=== PATIENT | female | born 1970 | race Caucasian/White ===

== ENCOUNTER 2018-06-20 10:44 | Emergency (ER) | payer MEDICARE, SELFPAY ==
[2018-06-20] VITALS (32 sets, daily range): BP systolic 103–134; BP diastolic 54–80; PULSE 71–89; RESP 11–20; TEMP 36.8–37.1; O2SAT 93–99
--- NOTE | 2018-06-20 11:11 | DI.COMBO_ITS ---
SYMPTOM/DIAGNOSIS: ABD PAIN, WITH H/O GALLSTONES, EPIGASTRIC PAIN PA AND LATERAL CHEST: The heart is normal in size. The lungs are clear. The mediastinal structures and pleura appear intact. CONCLUSION: Normal chest. ABDOMEN AND PELVIC CT: CT examination of the abdomen and pelvis was performed with a bolus infusion of 100 cc's of Omnipaque 350. Images obtained through the lung bases are unremarkable. Note is made of hepatic steatosis. There are multiple gallstones. No biliary dilatation is seen. Pancreas is unremarkable. Note is made of multiple mildly enlarged lymph nodes which are in peripancreatic, portal and para-aortic and paracaval locations in the upper abdomen. No bulky adenopathy is seen. Largest nodes may measure about 2-3 cm. in greatest diameter and are difficult to differentiate from adjacent bowel. Abdominal aorta is of normal diameter and no major vascular abnormality is seen. No significant abdominal wall hernia is seen. Appendix is normal. No evidence of diverticulitis or bowel obstruction. Adrenals and kidneys appear normal, no evidence of urinary tract calcification or obstruction. CONCLUSION: 1. Cholelithiasis. 2. Hepatic steatosis. 3. Joselyn prominence in predominantly retroperitoneal locations in the upper abdomen, infectious process should be considered. Neoplastic disease not excluded but no gross mass or bulky adenopathy is seen.
--- NOTE | 2018-06-20 11:14 | W.ED.GENAD ---
Discharge Plan Disposition Patient Disposition: HOME Condition: Good Discharge Details Chief Complaint: Abd Prob Clinical Impression: Biliary colic Primary Care Provider: Mago Rocha ED Provider: Alvin Page Meds and New Rx's Prescriptions: New ondansetron HCl [Zofran] 4 mg tablet 4 mg PO TID PRN (Reason: nausea and vomiting) 5 Days Qty: 30 RF: 0 oxycodone 5 mg tablet 5 mg PO Q4H PRN (Reason: pain) Qty: 10 RF: 0 Continue levothyroxine 50 MCG tablet 50 mcg PO DAILY RF: 0 omeprazole 40 mg Capsule,Delayed Release(Dr/Ec) 40 mg PO DAILY RF: 0 metformin 1,000 mg Tablet 1,000 mg PO DAILY RF: 0 Discharge Instructions Instructions: Biliary Colic (ED) Additional Instructions: you should be contacted with an appointment for general surgery this week if you have severe worsening of pain that is constant, persistent vomit or fevers return to the emergency department Medical Decision Making <Alvin Choudhury NP - Last Filed: 06/20/18 12:13> Explained to patient we would evaluate labs and CT. Exam and HPI cosnistent with acute pancreatitis. She is not complaining of CP but with severe epigastric pain and back pain we will check troponin and CT should see aorta to evaluate for dissection. Will try to retrieve medical records from [place]. I will transfer care to Dr. Page for disposition. Lab Data Lab results reviewed: Yes I reviewed the patient's lab results. Lab results narrative: No acute abnormal values to suggest infectious gallbladder or pancreatitis. ECG Data Interpretation: No acute ST changes. Reviewed by Dr. Lyle. HPI <Alvin Choudhury NP - Last Filed: 06/20/18 12:13> General Date/Time Provider Initiated Documentation: 06/20/18 10:59. Limitations to Documentation: no limitations. Information obtained by: patient. History of Present Illness 48 year old F presents to the emergency department with the chief complaint of abdominal pain, HPI Narrative: 48 y/o female here with c/o abdominal pain. She has returned to [place] recently from [place]. She reports dealing with gall stones and abdominal pain for months. While in [place] she had U/S and endoscopies which were normal other than the gall stones. She has lost > 50lbs because of her inability to eat. She was over 300lbs and down below 250. She tried to reconnect with her previous pcp but no openings for a month. She was advised to come to ED and was told by GI specialist in [place] to have her GB out [place]. Her complaints today is worsening abdominal pain, back pain, palpitations, and N/V. Denies fever or chills. Related Data Home Medications Medication Instructions Recorded Confirmed levothyroxine 50 mcg PO DAILY 05/16/13 06/20/18 metformin 1,000 mg PO DAILY 06/20/18 06/20/18 omeprazole 40 mg PO DAILY 06/20/18 06/20/18 ondansetron HCl [Zofran] 4 mg PO TID PRN 5 Days #30 tab 06/20/18 oxycodone 5 mg PO Q4H PRN #10 tab 06/20/18 Previous Rx's Medication Instructions Recorded ondansetron HCl [Zofran] 4 mg PO TID PRN 5 Days #30 tab 06/20/18 oxycodone 5 mg PO Q4H PRN #10 tab 06/20/18 Allergies Allergy/AdvReac Type Severity Reaction Status Date / Time Penicillins Allergy Severe Anaphylaxsi Unverified 11/29/13 17:11 s morphine Allergy Intermediate Itching Unverified 11/29/13 17:12 oxycodone [Oxycodone] Allergy Itching Unverified 11/29/13 17:11 General Stated Complaint: Abd Prob TRACE: 3 Review of Systems <Alvin Choudhury NP - Last Filed: 06/20/18 12:13> Constitutional Reports weight loss ENT Reports system reviewed and no additional complaints, except as docu Cardiovascular Reports lightheadedness and Reports palpitations Respiratory Reports system reviewed and no additional complaints, except as docu Gastrointestinal Reports abdominal pain, Reports nausea and Reports vomiting Genitourinary Reports system reviewed and no additional complaints, except as docu Musculoskeletal Reports back pain Integumentary/Breasts Reports system reviewed and no additional complaints, except as docu Endocrine Reports palpitations Hematologic/Lymphatic Reports system reviewed and no additional complaints, except as docu Exam <Alvin Choudhury NP - Last Filed: 06/20/18 12:13> Const General: cooperative, in distress (pain) moderate and anxious Nutritional Appearance: obese Orientation: alert, awake and oriented x3 HENMT Head: normal to inspection and atraumatic Ears: hearing grossly normal bilaterally and external ears normal General nose exam: external nose normal and nares normal Mouth: moist mucous membranes Eyes General: appearance normal, both eyes and all related structures Neck Neck: normal visual inspection, full ROM and no lymphadenopathy Resp Effort & Inspection: normal respiratory effort and able to speak in complete sentences Auscultation: clear to auscultation bilaterally Cardio Jugular venous pressure: no JVD Rate: regular rate Rhythm: regular rhythm Heart Sounds: S1 normal and no murmurs GI Inspection: non-distended, large pannus and obesity Palpation: soft and tender in the epigastrum, in the LUQ and in the RUQ; with no rebound tenderness Auscultation: normal bowel sounds Back/Spine/Pelvis Back: CVA tenderness and back tenderness (diffuse to mid to lower back) Skin General skin exam: no rashes or lesions noted Neuro General: alert, awake and oriented x3 Cognition: normal cognition Speech: speech normal Gait: normal gait Extrem General: normal to inspection, full ROM and normal capillary refill Psych Appearance: grossly normal Speech and Movement: speech and movement normal Mood: congruent mood Affect: normal affect Attitude: cooperative Thought Process: normal Thought Content: normal Insight: insight good Judgment: judgment good Course <Alvin Choudhury NP - Last Filed: 06/20/18 12:13> Vital Signs Temperature 37.1 C 06/20/18 10:57 Pulse 87 06/20/18 10:57 Respiratory Rate 20 06/20/18 10:57 Blood Pressure 134/78 06/20/18 10:57 Pulse Oximetry 96 06/20/18 10:57 Temperature 37.1 C 06/20/18 10:57 Temperature Source Temporal Artery Scan 06/20/18 10:57 Pulse 87 06/20/18 10:57 Respiratory Rate 20 06/20/18 10:57 Respiratory Effort Non-Labored 06/20/18 11:02 Blood Pressure 134/78 06/20/18 10:57 Blood Pressure Position Sitting 06/20/18 10:57 Pulse Oximetry 96 06/20/18 10:57 Oxygen Delivery Method Room Air 06/20/18 10:57 Oxygen Flow Rate 0 06/20/18 10:57 Pain Level 10 06/20/18 10:57 Sign Out <Alvin Choudhury NP - Last Filed: 06/20/18 12:13> Sign Out Data: Sign Out Comment: Discussed with Dr. Page. He accepts for patients disposition. Pt aware. Last updated by Alvin Choudhury NP at 06/20/18 12:35 Post-Handoff Eval: pt's labs and imaging show no significant abnormality. Per Dr. Albright on the phone she has gallstones without evidence of cholecystitis. She also has enlarged lymph nodes around the pancreas which I informed her of and needs to have f/u imaging after she has her gallbladder out. She has no fenton's sign here so doubt cholecystitis and do not feel emergent surgical consult indicated. Will refer to general surgery this week for eval of her gallstones and return precautions given
--- NOTE | 2018-06-20 11:24 | ED.GENADUL_ITS ---
Discharge Plan Disposition Patient Disposition: HOME Condition: Good Discharge Details Chief Complaint: Abd Prob Clinical Impression: Biliary colic Primary Care Provider: Mago Rocha ED Provider: Alvin Page Meds and New Rx's Prescriptions: New ondansetron HCl [Zofran] 4 mg tablet 4 mg PO TID PRN (Reason: nausea and vomiting) 5 Days Qty: 30 RF: 0 oxycodone 5 mg tablet 5 mg PO Q4H PRN (Reason: pain) Qty: 10 RF: 0 Continue levothyroxine 50 MCG tablet 50 mcg PO DAILY RF: 0 omeprazole 40 mg Capsule,Delayed Release(Dr/Ec) 40 mg PO DAILY RF: 0 metformin 1,000 mg Tablet 1,000 mg PO DAILY RF: 0 Discharge Instructions Instructions: Biliary Colic (ED) Additional Instructions: you should be contacted with an appointment for general surgery this week if you have severe worsening of pain that is constant, persistent vomit or fevers return to the emergency department Medical Decision Making <Alvin Choudhury NP - Last Filed: 06/20/18 12:13> Explained to patient we would evaluate labs and CT. Exam and HPI cosnistent with acute pancreatitis. She is not complaining of CP but with severe epigastric pain and back pain we will check troponin and CT should see aorta to evaluate for dissection. Will try to retrieve medical records from [place]. I will transfer care to Dr. Page for disposition. Lab Data Lab results reviewed: Yes I reviewed the patient's lab results. Lab results narrative: No acute abnormal values to suggest infectious gallbladder or pancreatitis. ECG Data Interpretation: No acute ST changes. Reviewed by Dr. Lyle. HPI <Alvin Choudhury NP - Last Filed: 06/20/18 12:13> General Date/Time Provider Initiated Documentation: 06/20/18 10:59 . Limitations to Documentation: no limitations . Information obtained by: patient . History of Present Illness 48 year old F presents to the emergency department with the chief complaint of abdominal pain, HPI Narrative: 48 y/o female here with c/o abdominal pain. She has returned to [place]. She reports dealing with gall stones and abdominal pain for months. [place] U/S and endoscopies which were normal other than the gall stones. She has lost > 50lbs because of her inability to eat. She was over 300lbs and down below 250. She tried to reconnect with her previous pcp but no openings for a month. She was advised to come to ED and was told by GI specialist in [place] to have her GB out [place]. Her complaints today is worsening abdominal pain, back pain, palpitations, and N/V. Denies fever or chills. Related Data Home Medications Medication Instructions Recorded Confirmed levothyroxine 50 mcg PO DAILY 05/16/13 06/20/18 metformin 1,000 mg PO DAILY 06/20/18 06/20/18 omeprazole 40 mg PO DAILY 06/20/18 06/20/18 ondansetron HCl [Zofran] 4 mg PO TID PRN 5 Days #30 tab 06/20/18 oxycodone 5 mg PO Q4H PRN #10 tab 06/20/18 Previous Rx's Medication Instructions Recorded ondansetron HCl [Zofran] 4 mg PO TID PRN 5 Days #30 tab 06/20/18 oxycodone 5 mg PO Q4H PRN #10 tab 06/20/18 Allergies Allergy/AdvReac Type Severity Reaction Status Date / Time Penicillins Allergy Severe Anaphylaxsi Unverified 11/29/13 17:11 s morphine Allergy Intermediate Itching Unverified 11/29/13 17:12 oxycodone [Oxycodone] Allergy Itching Unverified 11/29/13 17:11 General Stated Complaint: Abd Prob TRACE: 3 Review of Systems <Alvin Choudhury NP - Last Filed: 06/20/18 12:13> Constitutional Reports weight loss ENT Reports system reviewed and no additional complaints, except as docu Cardiovascular Reports lightheadedness and Reports palpitations Respiratory Reports system reviewed and no additional complaints, except as docu Gastrointestinal Reports abdominal pain, Reports nausea and Reports vomiting Genitourinary Reports system reviewed and no additional complaints, except as docu Musculoskeletal Reports back pain Integumentary/Breasts Reports system reviewed and no additional complaints, except as docu Endocrine Reports palpitations Hematologic/Lymphatic Reports system reviewed and no additional complaints, except as docu Exam <Alvin Choudhury NP - Last Filed: 06/20/18 12:13> Const General: cooperative, in distress (pain) moderate and anxious Nutritional Appearance: obese Orientation: alert, awake and oriented x3 HENMT Head: normal to inspection and atraumatic Ears: hearing grossly normal bilaterally and external ears normal General nose exam: external nose normal and nares normal Mouth: moist mucous membranes Eyes General: appearance normal, both eyes and all related structures Neck Neck: normal visual inspection, full ROM and no lymphadenopathy Resp Effort & Inspection: normal respiratory effort and able to speak in complete sentences Auscultation: clear to auscultation bilaterally Cardio Jugular venous pressure: no JVD Rate: regular rate Rhythm: regular rhythm Heart Sounds: S1 normal and no murmurs GI Inspection: non-distended, large pannus and obesity Palpation: soft and tender in the epigastrum, in the LUQ and in the RUQ; with no rebound tenderness Auscultation: normal bowel sounds Back/Spine/Pelvis Back: CVA tenderness and back tenderness (diffuse to mid to lower back) Skin General skin exam: no rashes or lesions noted Neuro General: alert, awake and oriented x3 Cognition: normal cognition Speech: speech normal Gait: normal gait Extrem General: normal to inspection, full ROM and normal capillary refill Psych Appearance: grossly normal Speech and Movement: speech and movement normal Mood: congruent mood Affect: normal affect Attitude: cooperative Thought Process: normal Thought Content: normal Insight: insight good Judgment: judgment good Course <Alvin Choudhury NP - Last Filed: 06/20/18 12:13> Vital Signs Temperature 37.1 C 06/20/18 10:57 Pulse 87 06/20/18 10:57 Respiratory Rate 20 06/20/18 10:57 Blood Pressure 134/78 06/20/18 10:57 Pulse Oximetry 96 06/20/18 10:57 Temperature 37.1 C 06/20/18 10:57 Temperature Source Temporal Artery Scan 06/20/18 10:57 Pulse 87 06/20/18 10:57 Respiratory Rate 20 06/20/18 10:57 Respiratory Effort Non-Labored 06/20/18 11:02 Blood Pressure 134/78 06/20/18 10:57 Blood Pressure Position Sitting 06/20/18 10:57 Pulse Oximetry 96 06/20/18 10:57 Oxygen Delivery Method Room Air 06/20/18 10:57 Oxygen Flow Rate 0 06/20/18 10:57 Pain Level 10 06/20/18 10:57 Sign Out <Alvin Choudhury NP - Last Filed: 06/20/18 12:13> Sign Out Data: Sign Out Comment: Discussed with Dr. Page. He accepts for patients disposition. Pt aware. Last updated by Alvin Choudhury NP at 06/20/18 12:35 Post-Handoff Eval: pt's labs and imaging show no significant abnormality. Per Dr. Albright on the phone she has gallstones without evidence of cholecystitis. She also has enlarged lymph nodes around the pancreas which I informed her of and needs to have f/u imaging after she has her gallbladder out. She has no fenton's sign here so doubt cholecystitis and do not feel emergent surgical consult indicated. Will refer to general surgery this week for eval of her gallstones and return precautions given
[2018-06-20 11:36] LABS: Abs Immature Grans 0.04 k/cumm (0.0-0.09); Absolute Lymphocyte Count 2.05 k/cumm (1.2-3.4); Basophils % 0.3; Eosinophils % 1.6; HCT 34.4 % (36.0-46.0); HGB 10.9 g/dL (12.0-15.5); Immature Grans % 0.3; Lymphocytes % 17.8; Mean Corp. HGB Concentration 31.7 g/dL (32.0-36.0); Mean Corpuscular Hemoglobin 20.7 pg (27.0-33.0); Mean Corpuscular Volume 65.3 fL (80-95); Mean Platelet Volume 11.1 fL (8.0-11.0); Monocytes % 4.2; Neutrophils % 75.8; RBC 5.27 m/cumm (4.00-5.20); RBC Distribution Width 16.3 % (11.7-14.6); White Blood Cell Count 11.54 k/cumm (4.4-10.8)
[2018-06-20 11:37] LABS: Absolute Basophil Count 0.03 k/cumm (0.0-0.2); Absolute Eosinophil Count 0.18 k/cumm (0.0-0.7); Absolute Monocyte Count 0.48 k/cumm (0.11-0.7); Absolute Neutrophil Count 8.75 k/cumm (1.2-6.7)
[2018-06-20 11:46] LABS: Platelet Count 364 x1000/uL (130-400)
[2018-06-20 11:47] LABS: Diff Comment RBC Morph Reviewed; Hypochromasia 3+; Microcytosis 3+; Polychromasia Present
[2018-06-20 11:48] LABS: ALT 34 U/L (12-78); AST 35 U/L (15-37); Albumin 3.1 g/dL (3.4-5.0); Alkaline Phosphatase 82 U/L (46-116); Anion Gap 9.6 mmol/L (3-11); BUN 8 mg/dL (7-18); Bilirubin, Total 0.8 mg/dL (0.2-1.0); CO2 25.4 mmol/L (21.0-32.0); CREATININE 0.98 mg/dL (0.55-1.02); Calcium 8.8 mg/dL (8.5-10.1); Chloride 106 mmol/L (98-107); Glucose 148 mg/dL (70-100); Poikilocytes 1+; Potassium 3.7 mmol/L (3.5-5.1); Sodium 141 mmol/L (136-145)
[2018-06-20 11:49] LABS: Troponin I < 0.02 ng/mL (0.00-0.06)
[2018-06-20] MEDS: Normal Saline 1,000 ML 1000 ML IV (11:53)
[2018-06-20] MEDS: Ondansetron 4 MG/2 ML VIAL IVP (11:53)
--- NOTE | 2018-06-20 11:55 | NUR.NOTE ---
Nursing Note: Gastrologist: Dr. Zan Macias; [phone]. Had endoscopies here. Primary Care: [facility], [place] [address] [place], [place] Ultrasound done at: [phone]. Mindy Landon.
[2018-06-20 12:27] LABS: Bilirubin Negative (Negative); Blood Negative (Negative); Clarity Clear; Glucose Negative (Negative); Ketones Negative (Negative); Leukocyte Esterase Negative (Negative); Nitrite Negative (Negative); pH 6.5 (5-8)
== END 2018-06-20 14:22 | disposition home or self-care (01) ==
PROVIDERS: Nurse Practitioner Family; Emergency Provider Emergency Medicine; PCP Nurse Practitioner Family
DX: K80.50 Calculus of bile duct without cholangitis or cholecystitis without obstruction (principal)
CPT/HCPCS: 36415; 80053; 93005; 96361; 96374; 99285; 71046; 74177; 81003; 83735; 84484; 85025; 93010; J2405

== ENCOUNTER → 2018-07-06 09:49 | Outpatient (BNVA) | payer MEDICARE, MEDICAID, SELFPAY | PROVIDERS: PCP Nurse Practitioner Family; Referring Provider Nurse Practitioner Family; Visit Provider Surgery | DX: R10.10 Upper abdominal pain, unspecified (principal); E11.9 Type 2 diabetes mellitus without complications; Z79.84 Long term (current) use of oral hypoglycemic drugs | CPT/HCPCS: 99203; 99213 ==

== ENCOUNTER 2018-07-07 19:12 | Outpatient (REF) | payer MEDICARE, SELFPAY ==
[2018-07-07 22:13] LABS: ALT 37 U/L (12-78); AST 45 U/L (15-37); Albumin 3.6 g/dL (3.4-5.0); Alkaline Phosphatase 89 U/L (46-116); Anion Gap 11.6 mmol/L (3-11); BUN 10 mg/dL (7-18); Bilirubin, Total 0.7 mg/dL (0.2-1.0); CO2 23.4 mmol/L (21.0-32.0); CREATININE 0.92 mg/dL (0.55-1.02); Chloride 104 mmol/L (98-107); Glucose 96 mg/dL (70-100); Potassium 4.2 mmol/L (3.5-5.1); Sodium 139 mmol/L (136-145); TSH (W/Ref FT4) 8.04 uIU/mL (0.358-3.74); Total Protein 8.1 g/dL (6.4-8.2)
[2018-07-07 22:37] LABS: FREE T4 1.42 ng/dL (0.76-1.46)
== END 2018-07-07 19:32 ==
LOC: NCHCN 19:12
PROVIDERS: PCP Nurse Practitioner Family; Visit Provider Nurse Practitioner Family
DX: E03.9 Hypothyroidism, unspecified (principal); D56.1 Beta thalassemia; E11.9 Type 2 diabetes mellitus without complications
CPT/HCPCS: 80053; 84439; 84443

== ENCOUNTER 2018-07-08 14:48 | Outpatient (REF) | payer MEDICARE, SELFPAY ==
[2018-07-08 15:09] LABS: Abs Immature Grans 0.03 k/cumm (0.0-0.09); Absolute Basophil Count 0.07 k/cumm (0.0-0.2); Basophils % 0.6; HCT 40.2 % (36.0-46.0); HGB 11.8 g/dL (12.0-15.5); Immature Grans % 0.3; Mean Corp. HGB Concentration 29.4 g/dL (32.0-36.0); Mean Corpuscular Hemoglobin 20.1 pg (27.0-33.0); Mean Corpuscular Volume 68.6 fL (80-95); Platelet Count 376 x1000/uL (130-400); RBC 5.86 m/cumm (4.00-5.20); White Blood Cell Count 11.76 k/cumm (4.4-10.8)
[2018-07-08 16:07] LABS: Absolute Eosinophil Count 0.59 k/cumm (0.0-0.7); Absolute Lymphocyte Count 5.76 k/cumm (1.2-3.4); Absolute Monocyte Count 0.47 k/cumm (0.11-0.7); Absolute Neutrophil Count 4.94 k/cumm (1.2-6.7); Atypical Lymphocytes % 1; Nucleated RBC 1 /100WBC
[2018-07-08 16:08] LABS: Anisocytosis 1+; Microcytosis 1+; Polychromasia Present
[2018-07-08 16:10] LABS: Diff Comment Manual Differential; Poikilocytes 1+
== END 2018-07-08 15:08 ==
LOC: NCHCN 14:48
PROVIDERS: PCP Nurse Practitioner Family; Visit Provider Nurse Practitioner Family
DX: D56.1 Beta thalassemia (principal)
CPT/HCPCS: 85025

== ENCOUNTER 2018-08-04 10:08 | Outpatient (REF) | payer MEDICARE, SELFPAY ==
[2018-08-06 12:00] LABS: 6-monoacetylmorphine Not Detected ng/mL (Cutoff: 25); Amphetamines Negative ng/mL (Cutoff: 500); Barbiturates Negative ng/mL (Cutoff: 200); Benzodiazepines Negative ng/mL (Cutoff: 100); Buprenorphine Not Detected ng/mL (Cutoff: 5); Cocaine Negative ng/mL (Cutoff: 150); Codeine Not Detected ng/mL (Cutoff: 25); Comment Normal; Creatinine, U 238.4 mg/dL; Dihydrocodeine Not Detected ng/mL (Cutoff: 25); EDDP Not Detected ng/mL (Cutoff: 25); Fentanyl Not Detected ng/mL (Cutoff: 2); Hydrocodone Not Detected ng/mL (Cutoff: 25); Hydromorphone Not Detected ng/mL (Cutoff: 25); Hydromorphone-3-beta-glucuroni Not Detected ng/mL (Cutoff: 100); Meperidine Not Detected ng/mL (Cutoff: 25); Methadone Not Detected ng/mL (Cutoff: 25); Morphine Not Detected ng/mL (Cutoff: 25); N-desmethyltapentadol Not Detected ng/mL (Cutoff: 50); Naloxone Not Detected ng/mL (Cutoff: 25); Norbuprenorphine Not Detected ng/mL (Cutoff: 5); Norfentanyl Not Detected ng/mL (Cutoff: 2); Norhydrocodone Not Detected ng/mL (Cutoff: 25); Normeperidine Not Detected ng/mL (Cutoff: 25); Noroxycodone Not Detected ng/mL (Cutoff: 25); Noroxymorphone Not Detected ng/mL (Cutoff: 25); O-desmethyltramadol Not Detected ng/mL (Cutoff: 25); Phencyclidine Negative ng/mL (Cutoff: 25); Propoxyphene Not Detected ng/mL (Cutoff: 25); Specific Gravity 1.017; Tapentadol Not Detected ng/mL (Cutoff: 25); Tetrahydrocannabinol Presumptive Positive ng/mL (Cutoff: 50); Tramadol Not Detected ng/mL (Cutoff: 25); pH 6.6
[2018-09-10 12:27] LABS: Carboxy-THC Interpretation Positive.; Delta-9 CarboxyThc by LC-MS/MS >500.0 ng/mL (Cutoff:<3)
== END 2018-08-04 10:28 ==
LOC: LBN 10:08
PROVIDERS: PCP Nurse Practitioner Family; Visit Provider Nurse Practitioner Family
DX: Z79.899 Other long term (current) drug therapy (principal); R69 Illness, unspecified
CPT/HCPCS: 80307; 80349; 80364

== ENCOUNTER → 2018-08-13 12:54 | Outpatient (BNVA) | payer MEDICARE, MEDICAID, SELFPAY | PROVIDERS: PCP Nurse Practitioner Family; Referring Provider Nurse Practitioner Family; Visit Provider Surgery | DX: R10.84 Generalized abdominal pain (principal); E11.9 Type 2 diabetes mellitus without complications; Z79.84 Long term (current) use of oral hypoglycemic drugs | CPT/HCPCS: 99213 ==

== ENCOUNTER 2018-08-24 01:21 | Outpatient (CLI) | payer MEDICARE, MEDICAID, SELFPAY ==
--- NOTE | 2018-08-24 09:32 | DI.NM_ITS ---
SYMPTOMS/DIAGNOSIS: ABDOMINAL PAIN, R10.9, H/O GALLSTONES WITHOUT INFLAMMATION HEPATOBILIARY SCAN: The patient received 5.2 mCi of technetium 99m mebrofenin and hepatobiliary scan was performed. The liver, bile ducts and small bowel were visualized at the appropriate time interval. The gallbladder was visualized after gut activity and was seen on the 2-hour static image of the abdomen. IMPRESSION: Findings raising the question of chronic cholecystitis or gallbladder dysfunction.
== END 2018-08-24 01:41 ==
PROVIDERS: PCP Nurse Practitioner Family; Visit Provider Nurse Practitioner Family
DX: R10.9 Unspecified abdominal pain (principal); K81.1 Chronic cholecystitis; K82.8 Other specified diseases of gallbladder
CPT/HCPCS: 78227

== ENCOUNTER → 2018-09-03 13:12 | Outpatient (BNVA) | payer MEDICARE, MEDICAID, SELFPAY | PROVIDERS: PCP Nurse Practitioner Family; Referring Provider Nurse Practitioner Family; Visit Provider Surgery | DX: R94.8 Abnormal results of function studies of other organs and systems (principal); R10.13 Epigastric pain; K80.20 Calculus of gallbladder without cholecystitis without obstruction; K21.0 Gastro-esophageal reflux disease with esophagitis; E11.9 Type 2 diabetes mellitus without complications; E78.5 Hyperlipidemia, unspecified | CPT/HCPCS: 99213 ==

== ENCOUNTER 2018-09-08 07:57 | Day surgery (SDC) | payer MEDICARE, MEDICAID, SELFPAY ==
[2018-09-08] VITALS (11 sets, daily range): BP systolic 92–119; BP diastolic 41–77; PULSE 59–74; RESP 11–22; TEMP 35.4–36.7; O2SAT 89–98
--- NOTE | 2018-09-08 06:59 | ROE_ITS ---
Date of service: 09/08/18 Time of Service: 10:00 Operative Note DATE OF PROCEDURE: 09/08/18 PRE-OP DIAGNOSIS: Biliary Dyskinesia POST-OP DIAGNOSIS: same (and Gallstones) PROCEDURE: Laparoscopic Cholecystectomy SURGEON: Becka Deng FINANCE TEACHER: Ingrid Wood ANESTHESIA: GETA ESTIMATED BLOOD LOSS: 50 PATHOLOGY: other (Gallbladder and content) COMPLICATIONS: None Patient was transported to: PACU Patient's condition: stable Indications: Mrs. Olguin is a pleasant 48 year old with multiple medical issues who has been having RUQ pain for months. US was negative. HIDA scan was suspicious for either chronic Cholecytitis or Biliary Dyskinesia. Risks, benefits, complications were reviewed with her in the office and again in same day surgery. The patient wished to proceed and no guarantees were given or implied. Findings: Distended Gallbladder. Multiple stones. Minimal inflammation Liver is nodular, concern for cirrhosis Procedure Description: After informed consent was obtained the patient was taken to the operating room placed in a supine position, monitors were applied and a timeout was done. The patient's name, date of , allergies to medications, procedure type, antibiotic given, DVT prophylaxis and oxygen awareness were reviewed. The patient was then placed under general anesthesia and a Weber catheter was placed in a standard surgical fashion. The abdomen was then prepped and draped in a sterile surgical fashion using ChloraPrep. Next 1% lidocaine mixed with half percent bupivacaine with epinephrine was injected just above the umbilicus. A 5 mm incision was made with an 11 blade. A standard 5 mm Visiport was then placed into the abdomen under direct visualization. The abdomen was insufflated. The camera was placed and the omentum and bowel just under the port was inspected no injuries were identified. The liver was noted to be quite nodular. At this point 3 more ports were placed, a 12 mm port in the subxiphoid area and two 5 mm ports in the right upper quadrant. The gallbladder was grabbed at the top and pushed up towards the right shoulder. The neck of the gallbladder was grasped and pulled towards the right side allowing me to visualize the lymph node. The lymph node looked enlarged. The lymph node was dissected gently away using both a Maryland dissector with cautery and a hook with cautery. Fatty tissue was dissected away from the area gently using the Maryland dissector until I was able to visualize the cystic duct. The duct was dissected 360 degrees. I was able to visualize the duct going into the gallbladder and I could visualize the liver behind it. 3 clips were placed on the duct, one proximal and 2 distal and the duct was cut. The lymph node was identified. The cystic artery was then identified just medial to the duct. It have a branch coming off of it. Both the branch and the main art lizz were dissected and clips were placed one proximal and 2 distal. The artery and branch were then cut between the clips. At this point, using the hook dissector with cautery, the gallbladder was gently dissected away from the liver. I did have a small opening in the gallbladder and so the bile was suctioned out which collapsed the gallbladder around multiple stones measuring more than a centimeter. Once the gallbladder was dissected away from the liver bed it was placed into an Endo Catch bag and pulled through the 12 mm skin incision. The 12 mm port was replaced and the liver bed was inspected. 2 small bleeders were identified and these were cauterized. A Ray-Uvaldo was placed into the abdomen to help with suctioning of all the fluid. A few blood clots were noted and these were removed. The Ray- uvaldo was removed. Once the effluent was clear I inspected the clips and 2 clips were noted on the cystic artery 2 clips on the branch of the cystic artery and 2 clips on the cystic duct. 20 cc of lidocaine and bupivacaine mixture was then injected above the liver to help with postoperative shoulder pain. Next the 12 mm port was removed as were the two 5 mm ports in the right upper quadrant. No bleeding was noted from the fascia. The camera was removed and the rest of the gas was suctioned out. The umbilical port was removed. The skin incisions were closed with 4-0 Vicryl. Skin was cleaned and dried and skin affix was applied. Sponge instrument and needle counts were correct x2 at the end of the case. The Weber catheter was removed and the patient was woken up, extubated and taken back to PACU in stable condition. There were no immediate complications.
--- NOTE | 2018-09-08 07:00 | PDOC.DSDIS_ITS ---
Discharge Plan Disposition Patient Disposition: HOME Condition: Good Discharge Details Reason For Visit: DYSKENSIA Attending Provider: Becka Deng Primary Care Provider: Dani Vidal Home Meds and New Rx's Prescriptions: New acetaminophen [Tylenol 8 Hour] 650 mg tablet extended release 650 mg PO Q6H PRN PRN (Reason: fever or pain) Qty: 30 RF: 0 ibuprofen 600 mg tablet 600 mg PO QID PRN (Reason: fever or pain) Qty: 30 RF: 0 oxycodone 5 mg tablet 5 mg PO Q6H PRN (Reason: pain) Qty: 14 RF: 0 Continued levothyroxine 175 mcg tablet 175 mcg PO DAILY RF: 0 omeprazole 40 mg capsule,delayed release(DR/EC) 40 mg PO DAILY RF: 0 metformin 1,000 mg tablet 1,000 mg PO BID RF: 0 Discharge Instructions Instructions: Laparoscopic Cholecystectomy (DC) Additional Instructions: Activity at Home after surgery: 1. Make sure you walk outside at least 4 times per day 2. You should be able to climb a flight of stairs 3. No driving while in pain or taking pain medications 4. No strenuous activity or heavy lifting for 2 weeks (laparoscopic surgery) or 4 weeks (open surgery) Diet, Nutrition, & wound healin. Avoid alcohol until after you are recovered from your surgery 2. Make sure to eat plenty of lean protein (meat, fish, eggs, cottage cheese, beans) 3. Eat a variety of fruits and vegetables. Eat plenty of high fiber foods to avoid constipation. 4. Drink plenty of liquids to stay hydrated and avoid constipation Pain Medications: 1. Alternate Tylenol 1000 mg and Ibuprofen 600 mg every 3 hours 2. If a narcotic has been prescribed take as directed only for breakthrough pain For Constipation: 1. Take Milk of Magnesia or MiraLax as needed for constipation Other: 1. You may shower daily. Do not scrub the incisions 2. Do not soak the incisions for 1 week 3. You may alternate ice and heat as needed for pain and swelling Wound Care: 1. Keep the incisions clean and dry Please call our office if you develop: 1. Fevers >101.5 2. Nausea or Vomiting 3. Worsening pain 4. Redness and thick discharge from the wounds If after hours please call the Hospital at and ask to speak to the on-call surgeon Stand Alone Forms: DSU Post op Instructions, Anirudh Lubin (DSU) Referrals: Becka Deng MD [ [facility] STAFF PHYSICIAN] - (2 weeks with me or Trischa) Activity:: No lifting >20 lb x 2 weeks Diet:: low fat diet Discharge Orders Discharge Orders: Discharge Order (Routine); Ordered 09/08/18 Ordered By: Becka Deng DS: Diagnosis Discharge Diagnosis (1) Gallstones: Status: Acute (2) Biliary dyskinesia: Status: Acute (3) History of laparoscopic cholecystectomy: Status: Acute
[2018-09-08] MEDS: Lactated Ringers 1,000 ML 80 ML IV ×2 (08:57→11:47)
[2018-09-08] MEDS: CLINDAMYCIN 600 MG/50 ML BAG 100 MG IVPB (10:00)
--- NOTE | 2018-09-08 11:29 | GB_PTH ---
PATIENT: Tamy Aparicio LOC: [facility] U#:[id number] AGE/SX: 48/F ROOM: RE09/08/[address]: Becka Deng MD : [id number] BED: DIS: 09/08/2018 SPEC #: [id number] RECD: 09/08/18 12:45 STATUS: [facility] REQ #: [id number] PRATEEK: 09/08/18 11:[address]: Becka Deng DEPT: Surgical Specimen RECD BY: Aleshia Pond ENTERED: 09/08/18 12:46 SP TYPE: GB OTHR DR: Dani Vidal Tissues: 1 - GALLBLADDER Procedures: GROSS AND MICRO LEVEL 3 Comments: [id number]
[2018-09-08] MEDS: Lidocaine 1% Multi-Dose 50 ML VIAL (11:37)
[2018-09-08] MEDS: fentaNYL 100 MCG/2 ML VIAL IVP (13:09)
[2018-09-08] MEDS: Ondansetron 4 MG/2 ML VIAL IVP (14:14)
[2018-09-08] MEDS: oxyCODONE 5 MG TAB PO (14:29)
[2018-09-08] MEDS: diphenhydrAMINE 25 MG CAP PO (14:30)
== END 2018-09-08 15:31 | disposition home or self-care (01) ==
LOC: SUR 07:57
PROVIDERS: PCP Nurse Practitioner Family; Visit Provider Surgery
PROC: 0FT44ZZ Resection of Gallbladder, Percutaneous Endoscopic Approach (ICD-10-PCS; CPT 47562; principal; 2018-09-08 09:30)
DX: K82.8 Other specified diseases of gallbladder (principal); K80.10 Calculus of gallbladder with chronic cholecystitis without obstruction; K21.9 Gastro-esophageal reflux disease without esophagitis
CPT/HCPCS: 47562; 88304; J0131; J1100; J1885; J2405; J3010

== ENCOUNTER 2018-09-13 12:28 | Outpatient (REF) | payer MEDICARE, MEDICAID, SELFPAY ==
[2018-09-13 18:39] LABS: Cholesterol 187 mg/dL (50-200); HDL Cholesterol 37 mg/dL (40-60); LDL CHOLESTEROL 122 mg/dL (<100); Triglyceride 126 mg/dL (30-150)
== END 2018-09-13 12:48 ==
LOC: NCHCN 12:28
PROVIDERS: PCP Nurse Practitioner Family; Visit Provider Nurse Practitioner Family
DX: E78.5 Hyperlipidemia, unspecified (principal)
CPT/HCPCS: 80061; 83721

== ENCOUNTER → 2018-09-21 13:41 | Outpatient (BNVA) | payer MEDICARE, MEDICAID, SELFPAY | PROVIDERS: PCP Nurse Practitioner Family; Referring Provider Nurse Practitioner Family; Visit Provider Surgery | DX: Z48.89 Encounter for other specified surgical aftercare (principal); Z90.49 Acquired absence of other specified parts of digestive tract; K80.10 Calculus of gallbladder with chronic cholecystitis without obstruction; E11.9 Type 2 diabetes mellitus without complications; Z79.84 Long term (current) use of oral hypoglycemic drugs ==

== ENCOUNTER 2018-10-21 12:22 | Outpatient (REF) | payer MEDICARE, MEDICAID, SELFPAY ==
[2018-10-21 18:51] LABS: Abs Immature Grans 0.03 k/cumm (0.0-0.09); Absolute Basophil Count 0.03 k/cumm (0.0-0.2); Absolute Eosinophil Count 0.23 k/cumm (0.0-0.7); Absolute Monocyte Count 0.66 k/cumm (0.11-0.7); Basophils % 0.2; Eosinophils % 1.6; HCT 37.4 % (36.0-46.0); HGB 11.7 g/dL (12.0-15.5); Immature Grans % 0.2; Lymphocytes % 20.3; Mean Corp. HGB Concentration 31.3 g/dL (32.0-36.0); Mean Corpuscular Hemoglobin 19.8 pg (27.0-33.0); Mean Corpuscular Volume 63.3 fL (80-95); Mean Platelet Volume 11.6 fL (8.0-11.0); Monocytes % 4.6; Neutrophils % 73.1; Platelet Count 434 x1000/uL (130-400); RBC 5.91 m/cumm (4.00-5.20); RBC Distribution Width 17.4 % (11.7-14.6); White Blood Cell Count 14.31 k/cumm (4.4-10.8)
[2018-10-21 19:13] LABS: ALT 35 U/L (12-78); AST 36 U/L (15-37); Albumin 3.8 g/dL (3.4-5.0); Alkaline Phosphatase 113 U/L (46-116); Anion Gap 9.9 mmol/L (3-11); BUN 7 mg/dL (7-18); Bilirubin, Total 0.8 mg/dL (0.2-1.0); CO2 26.1 mmol/L (21.0-32.0); CREATININE 0.83 mg/dL (0.55-1.02); Calcium 9.7 mg/dL (8.5-10.1); Chloride 101 mmol/L (98-107); Glucose 89 mg/dL (70-100); Lipase 230 U/L (73-393); Potassium 4.3 mmol/L (3.5-5.1); Sodium 137 mmol/L (136-145); Total Protein 8.2 g/dL (6.4-8.2)
[2018-10-21 19:27] LABS: Absolute Neutrophil Count 10.46 k/cumm (1.2-6.7)
[2018-10-21 19:40] LABS: Hemoglobin A1C 6.8 % (4.5-6.2)
[2018-10-21 21:07] LABS: Diff Comment Diff Reviewed
[2018-10-21 21:08] LABS: Anisocytosis 2+; Microcytosis 3+
[2018-10-25 12:45] LABS: Hepatitis A Antibody IgM Negative (NEGAT); Hepatitis B Core Antibody Negative (NEGAT); Hepatitis B surface Ag Negative (NEGAT); Hepatitis C Ab w Rflx HCV PCR Negative (NEGAT)
== END 2018-10-21 12:42 ==
LOC: NCHCN 12:22
PROVIDERS: PCP Nurse Practitioner Family; Visit Provider Family Medicine
DX: R19.7 Diarrhea, unspecified (principal); K76.9 Liver disease, unspecified
CPT/HCPCS: 80053; 83690; 86704; 86709; 86803; 87340; 83036; 84443; 85025

== ENCOUNTER 2018-10-22 12:37 | Outpatient (REF) | payer MEDICARE, MEDICAID, SELFPAY ==
[2018-10-23 11:38] LABS: Campylobacter PCR SEE COMMENTS; Salmonella PCR SEE COMMENTS; Shiga Toxin PCR SEE COMMENTS; Shigella/Enteroinvasive Ecoli SEE COMMENTS
== END 2018-10-22 12:57 ==
LOC: NCHCN 12:37
PROVIDERS: PCP Nurse Practitioner Family; Visit Provider Family Medicine
DX: R19.7 Diarrhea, unspecified (principal); K76.9 Liver disease, unspecified; E11.9 Type 2 diabetes mellitus without complications; E03.9 Hypothyroidism, unspecified
CPT/HCPCS: 87329; 87505; 83630; 87324

== ENCOUNTER 2019-01-25 13:03 | Outpatient (REF) | payer MEDICARE, MEDICAID, SELFPAY ==
--- NOTE | 2019-01-25 12:00 | PAPFT_PTH ---
PATIENT: Tamy Aparicio LOC: [facility] U#:[id number] AGE/SX: 48/F ROOM: RE01/25/[address]: Dani Vidal : 1970 BED: DIS: 01/25/2019 SPEC #: [id number] RECD: 01/25/19 17:55 STATUS: ANDERSON REQ #: [id number] PRATEEK: 01/25/19 12:[address]: Dani Vidal DEPT: [facility] Cytology RECD BY: Aleshia Pond Tissues: 1 - CX/ENDOCX FOR PAP SMEARS Procedures: PAP THIN PREP/UVM Screening HPV DNA PROBE Comments: [id number]
[2019-01-25 18:05] LABS: HCT 37.5 % (36.0-46.0); Mean Corpuscular Hemoglobin 20.2 pg (27.0-33.0); Mean Platelet Volume 11.4 fL (8.0-11.0); Platelet Count 395 x1000/uL (130-400); RBC 5.95 m/cumm (4.00-5.20); RBC Distribution Width 17.7 % (11.7-14.6); White Blood Cell Count 12.02 k/cumm (4.4-10.8)
[2019-01-25 18:22] LABS: ALT 28 U/L (12-78); AST 27 U/L (15-37); Albumin 3.8 g/dL (3.4-5.0); Alkaline Phosphatase 111 U/L (46-116); Anion Gap 12.3 mmol/L (3-11); BUN 11 mg/dL (7-18); Bilirubin, Total 0.7 mg/dL (0.2-1.0); CO2 25.7 mmol/L (21.0-32.0); CREATININE 0.85 mg/dL (0.55-1.02); Calcium 9.6 mg/dL (8.5-10.1); Chloride 102 mmol/L (98-107); Glucose 88 mg/dL (70-100); Potassium 4.1 mmol/L (3.5-5.1); Sodium 140 mmol/L (136-145); TSH (W/Ref FT4) 0.97 uIU/mL (0.358-3.74); Total Protein 8.1 g/dL (6.4-8.2)
== END 2019-01-25 13:23 ==
LOC: NCHCN 13:03
PROVIDERS: PCP Nurse Practitioner Family; Visit Provider Nurse Practitioner Family
DX: E03.9 Hypothyroidism, unspecified (principal); R19.7 Diarrhea, unspecified; D56.3 Thalassemia minor; M79.7 Fibromyalgia; Z12.4 Encounter for screening for malignant neoplasm of cervix; Z11.51 Encounter for screening for human papillomavirus (HPV)
CPT/HCPCS: 80053; 85027; 88142; 84443; 87624

== ENCOUNTER 2019-02-08 11:28 | Outpatient (CLI) | payer MEDICARE, MEDICAID, SELFPAY ==
--- NOTE | 2019-02-08 11:54 | DI.MAMMO_ITS ---
SYMPTOMS/DIAGNOSIS: SCREENING, Z12.39, [facility], Z00.00 MAMMOGRAM: Mammograms were interpreted according to the usual protocol including computer analysis with CAD system, tomosynthesis and C view imaging. The breasts are of moderate density with fairly symmetrical distribution of fibroglandular tissue. No dominant mass is identified in either breast. Current examination is compared with the previous examinations including July 2013 and there has been no gross interval change in appearance in comparison with the previous studies. CONCLUSION: No specific evidence of malignancy at this time. Routine screening examinations are suggested at yearly intervals in this age group according to the ACS/ACR guidelines. Category 1, breast density category B. MQSA ASSESSMENT OF FINDINGS: Negative. Category 1. Patient will receive a letter notifying them of these results. BI-RADS category B. There are scattered areas of fibroglandular density.
== END 2019-02-08 11:48 ==
PROVIDERS: PCP Nurse Practitioner Family; Visit Provider Nurse Practitioner Family
DX: Z12.31 Encounter for screening mammogram for malignant neoplasm of breast (principal)
CPT/HCPCS: 77063; 77067

== ENCOUNTER 2019-05-06 11:57 | Outpatient (CLI) | payer MEDICARE, MEDICAID, SELFPAY ==
--- NOTE | 2019-05-06 11:35 | DI.RAD_ITS ---
EXAM: XR KNEE LT 3V AP,LAT,PACO INDICATION: LT KNEE PAIN, M25.562. COMPARISON: No exams were available for comparison TECHNIQUE: 2D digital imaging was performed. FINDINGS: Three views were obtained. There is mild narrowing of the medial tibiofemoral cartilaginous joint sp karely. No bony abnormality seen. IMPRESSION: cartilaginous joint space narrowing presumably on a degenerative basis.
== END 2019-05-06 12:17 ==
PROVIDERS: PCP Nurse Practitioner Family; Visit Provider Nurse Practitioner Family
DX: M25.562 Pain in left knee (principal); M17.12 Unilateral primary osteoarthritis, left knee
CPT/HCPCS: 73562

== ENCOUNTER → 2019-05-17 13:50 | Outpatient (BNVA) | payer MEDICARE, MEDICAID, SELFPAY | PROVIDERS: PCP Nurse Practitioner Family; Referring Provider Nurse Practitioner Family; Visit Provider Student in an Organized Health Care Education/Training Program | DX: M22.42 Chondromalacia patellae, left knee (principal); M23.92 Unspecified internal derangement of left knee; E11.9 Type 2 diabetes mellitus without complications | CPT/HCPCS: 99204; 99215 ==

== ENCOUNTER 2019-05-24 13:38 | Outpatient (REF) | payer MEDICARE, MEDICAID, SELFPAY ==
[2019-05-24 19:55] LABS: ALT 23 U/L (14-59); AST 19 U/L (15-37); Albumin 3.8 g/dL (3.4-5.0); Alkaline Phosphatase 103 U/L (46-116); BUN 14 mg/dL (7-18); Bilirubin, Total 0.5 mg/dL (0.2-1.0); CREATININE 0.88 mg/dL (0.55-1.02); Calcium 9.1 mg/dL (8.5-10.1); Chloride 104 mmol/L (98-107); Glucose 107 mg/dL (70-100); Potassium 4.1 mmol/L (3.5-5.1); Sodium 141 mmol/L (136-145); Total Protein 7.8 g/dL (6.4-8.2)
[2019-05-24 20:17] LABS: Abs Immature Grans 0.02 k/cumm (0.0-0.09); Absolute Basophil Count 0.07 k/cumm (0.0-0.2); Absolute Eosinophil Count 0.24 k/cumm (0.0-0.7); Absolute Monocyte Count 0.54 k/cumm (0.11-0.7); Basophils % 0.7; Eosinophils % 2.5; HCT 36.4 % (36.0-46.0); HGB 11.4 g/dL (12.0-15.5); Immature Grans % 0.2; Lymphocytes % 28.7; Mean Corp. HGB Concentration 31.3 g/dL (32.0-36.0); Mean Corpuscular Hemoglobin 19.9 pg (27.0-33.0); Mean Corpuscular Volume 63.4 fL (80-95); Mean Platelet Volume 11.9 fL (8.0-11.0); Monocytes % 5.5; Neutrophils % 62.4; Platelet Count 389 x1000/uL (130-400); RBC 5.74 m/cumm (4.00-5.20); RBC Distribution Width 16.5 % (11.7-14.6); White Blood Cell Count 9.77 k/cumm (4.4-10.8)
[2019-05-24 20:20] LABS: PROTEIN 15.9 mg/dL
[2019-05-24 20:23] LABS: COMMENT (LAB VIEW ONLY) 128.29 mg/dL; Prot/Crea Ur Ratio 0.12
[2019-05-24 20:24] LABS: COMMENT (LAB VIEW ONLY) 127.32 mg/dL; Microalb ug/mg Crea 6.6 ug/mg Cr
[2019-05-24 20:27] LABS: Bilirubin Negative (Negative); Blood Negative (Negative); Clarity Clear (Clear); Glucose Negative (Negative); Ketones Negative (Negative); Leukocyte Esterase Trace (Negative); Nitrite Negative (Negative); Specific Gravity 1.015 (1.005-1.025); Urobilinogen 0.2 EU/dL (Up TO 0.2)
[2019-05-24 21:00] LABS: Diff Comment RBC Morph Reviewed; Microcytosis 3+
[2019-05-24 21:40] LABS: Bacteria Many HPF (Negative); C & S Indicated? No/Sq. Contamination; Casts Negative LPF (Negative); Crystals Negative HPF (Negative); Epithelial Cells Many HPF (Negative); Mucus Negative (Negative); Other Cells Negative (Negative); RBC Negative (0-2)
[2019-05-26 11:26] LABS: HBs Antibody, Quant <3.1 mIU/mL; Hepatitis B Surface Ab Negative
[2019-05-26 11:34] LABS: Hepatitis B Surface Ag Negative (NEGAT)
[2019-05-26 12:36] LABS: Hep A Total Ab w Rflx IgM Negative (NEGAT)
[2019-05-26 12:46] LABS: Hepatitis C Ab w Rflx HCV PCR Negative (NEGAT)
== END 2019-05-24 13:58 ==
LOC: NCHCN 13:38
PROVIDERS: PCP Nurse Practitioner Family; Visit Provider Nurse Practitioner Family
DX: K75.81 Nonalcoholic steatohepatitis (NASH) (principal); D56.3 Thalassemia minor; R19.7 Diarrhea, unspecified; Z11.59 Encounter for screening for other viral diseases
CPT/HCPCS: 80053; 86706; 86709; 86803; 87340; 81003; 81015; 82043; 82565; 82570; 84156; 85025

== ENCOUNTER 2019-07-25 12:12 | Outpatient (REF) | payer MEDICARE, MEDICAID, SELFPAY ==
[2019-07-25 13:13] LABS: TSH 0.06 uIU/mL (0.36-3.74)
== END 2019-07-25 12:32 ==
LOC: NCHCO 12:12
PROVIDERS: PCP Nurse Practitioner Family; Visit Provider Nurse Practitioner Family
DX: E03.9 Hypothyroidism, unspecified (principal)
CPT/HCPCS: 84443

== ENCOUNTER 2020-01-25 19:07 | Outpatient (REF) | payer MEDICARE, MEDICAID, SELFPAY ==
[2020-01-25 21:42] LABS: HCT 35.5 % (36.0-46.0); HGB 11.3 g/dL (12.0-15.5); Mean Corp. HGB Concentration 31.8 g/dL (32.0-36.0); Mean Corpuscular Hemoglobin 20.7 pg (27.0-33.0); Mean Corpuscular Volume 65.1 fL (80-95); Mean Platelet Volume 12.1 fL (8.0-11.0); Platelet Count 353 x1000/uL (130-400); RBC 5.45 m/cumm (4.00-5.20); White Blood Cell Count 12.32 k/cumm (4.4-10.8)
[2020-01-25 21:58] LABS: ALT 24 U/L (14-59); AST 23 U/L (15-37); Albumin 3.8 g/dL (3.4-5.0); Alkaline Phosphatase 89 U/L (46-116); Anion Gap 9.1 mmol/L (3-11); BUN 11 mg/dL (7-18); Bilirubin, Total 0.6 mg/dL (0.2-1.0); CO2 27.9 mmol/L (21.0-32.0); Calcium 8.8 mg/dL (8.5-10.1); Chloride 103 mmol/L (98-107); Estimated GFR 58.93 (mL/min/1.73m2); Glucose 82 mg/dL (74-106); Potassium 4.3 mmol/L (3.5-5.1); Sodium 140 mmol/L (136-145); TSH 19.12 uIU/mL (0.36-3.74); Total Protein 7.2 g/dL (6.4-8.2)
[2020-01-25 22:23] LABS: ESR 35 mm/hr (0-20)
== END 2020-01-25 19:27 ==
LOC: NCHCN 19:07
PROVIDERS: PCP Nurse Practitioner Family; Visit Provider Family Medicine
DX: E03.9 Hypothyroidism, unspecified (principal); M25.462 Effusion, left knee; K75.81 Nonalcoholic steatohepatitis (NASH); D56.3 Thalassemia minor
CPT/HCPCS: 80053; 85027; 85652; 84443

== ENCOUNTER 2020-02-15 00:33 | Outpatient (CLI) | payer MEDICARE, MEDICAID, SELFPAY ==
--- NOTE | 2020-02-15 | DI.US_ITS ---
EXAM: US ABDOMEN CLINICAL HISTORY: SPLENOMEGALY,R16.1,NONALCOHOLIC STEATOHEPATITIS TECHNIQUE: Ultrasound performed using standard protocol. COMPARISON: US THYROID ULTRASOUND from 02/21/2014 FINDINGS: The liver shows increased echogenicity consistent with hepatic steatosis. There is mild hepatomegaly . No focal hepatic lesion seen. Spleen is unremarkable in appearance. Gallbladder is been surgically removed. No biliary dilatation. Norm 0 day rec arriaga ule flow noted i n portal vein. The kidneys are normal in size and shape, no hydronephrosis or nephrolithiasis. Abdominal aorta and IVC are of normal diameter. IMPRESSION: Probable hepatic steatosis. No other significant abnormality identified in a patient who is status p ost cholecystectomy. DATA REPOSITORY:
== END 2020-02-15 00:53 ==
PROVIDERS: PCP Nurse Practitioner Family; Visit Provider Nurse Practitioner Family
DX: K76.0 Fatty (change of) liver, not elsewhere classified (principal); R16.0 Hepatomegaly, not elsewhere classified; Z90.49 Acquired absence of other specified parts of digestive tract
CPT/HCPCS: 76700

== ENCOUNTER 2020-07-04 14:57 | Outpatient (REF) | payer MEDICARE, MEDICAID, SELFPAY ==
[2020-07-04 20:10] LABS: TSH (W/Ref FT4) 0.58 uIU/mL (0.36-3.74)
== END 2020-07-04 15:17 ==
LOC: NCHCN 14:57
PROVIDERS: PCP Nurse Practitioner Family; Visit Provider Nurse Practitioner Family
DX: E03.9 Hypothyroidism, unspecified (principal)
CPT/HCPCS: 84443

== ENCOUNTER 2020-11-08 21:04 | Outpatient (REF) | payer MEDICARE, MEDICAID, SELFPAY ==
[2020-11-08 21:52] LABS: TSH (W/Ref FT4) 20.33 uIU/mL (0.36-3.74)
[2020-11-08 22:21] LABS: FREE T4 1.08 ng/dL (0.76-1.46)
== END 2020-11-08 21:05 | disposition home or self-care (01) ==
LOC: NCHCN 21:04
PROVIDERS: PCP Nurse Practitioner Family; Visit Provider Nurse Practitioner Family
DX: E03.9 Hypothyroidism, unspecified (principal)
CPT/HCPCS: 84439; 84443

== ENCOUNTER 2021-02-08 16:11 | Outpatient (REF) | payer MEDICARE, MEDICAID, SELFPAY ==
[2021-02-08 19:39] LABS: HCT 40.6 % (36.0-46.0); HGB 12.4 g/dL (11.2-15.7); MCH 20.3 pg (27.0-33.0); MCHC 30.5 % (32.0-36.0); MCV 66.3 fL (80-95); MPV 11.1 fL (8.0-11.0); Platelet Count 324 10^3/uL (130-400); RBC 6.12 10^6/uL (3.93-5.22); RDW 17.1 % (11.7-14.6); RDW-SD 35.5 fL; WBC 11.71 10^3/uL (4.4-10.8)
[2021-02-08 19:52] LABS: ESR 113 mm/hr (0-20)
[2021-02-08 20:19] LABS: Hemoglobin A1C 8.3 % (<5.7)
[2021-02-08 20:41] LABS: ALT 48 U/L (14-59); AST 50 U/L (15-37); Albumin 3.7 g/dL (3.4-5.0); Alkaline Phosphatase 108 U/L (46-116); Anion Gap 15.6 mmol/L (3-11); BUN 13 mg/dL (7-18); Bilirubin, Total 0.4 mg/dL (0.2-1.0); CO2 22.4 mmol/L (21.0-32.0); Calcium 9.3 mg/dL (8.5-10.1); Chloride 101 mmol/L (98-107); Estimated GFR 58.69 (mL/min/1.73m2); Glucose 170 mg/dL (74-106); Potassium 4.4 mmol/L (3.5-5.1); Sodium 139 mmol/L (136-145); TSH (W/Ref FT4) 21.37 uIU/mL (0.36-3.74); Total Protein 7.9 g/dL (6.4-8.2)
[2021-02-08 20:58] LABS: FREE T4 0.97 ng/dL (0.76-1.46)
[2021-02-09 22:56] LABS: T3,Free 2.3 pg/mL (2.8-5.3)
[2021-02-09 23:10] LABS: T3, Total 109 ng/dL (97-169)
[2021-02-15 12:07] LABS: T3 (Triiodothyronine) Reverse 35 ng/dL (10-24)
== END 2021-02-08 16:12 | disposition home or self-care (01) ==
LOC: NCHCN 16:11
PROVIDERS: PCP Nurse Practitioner Family; Visit Provider Nurse Practitioner Family
DX: E11.9 Type 2 diabetes mellitus without complications (principal); E03.9 Hypothyroidism, unspecified; M79.7 Fibromyalgia; R20.2 Paresthesia of skin
CPT/HCPCS: 80053; 85027; 85652; 83036; 84439; 84443; 84480; 84481; 84482

== ENCOUNTER 2021-03-01 04:31 | Outpatient (CLI) | payer MEDICARE, MEDICAID, SELFPAY ==
--- NOTE | 2021-03-01 | DI.MRI_ITS ---
Exam(s) MR BRAIN WO EXAM: MR BRAIN WO CLINICAL HISTORY: PARESTHESIAS,R20.2,BALANCE PROBLEM,R27.9 TECHNIQUE: Multiplanar multisequence MRI of the brain was performed. COMPARISON: No exams were available for comparison FINDINGS: VENTRICLES AND EXTRA AXIAL SPACES: Normal in size and morphology for the patient's age. MIDLINE SHIFT: None. CEREBRAL PARENCHYMA: No focus of restricted diffusion to suggest acute infarct. No space-occupying le nico identified. HEMORRHAGE: None. BRAINSTEM/CEREBELLUM: Normal. CALVARIUM: Normal. VISUALIZED PARANASAL SINUSES/MASTOIDS:Clear. [place] SUR OF [place]: Normal flow void. PITUITARY GLAND: Unremarkable. OTHER FINDINGS: None. IMPRESSION: Unremarkable MRI of the brain. DATA REPOSITORY:
== END 2021-03-01 04:51 ==
PROVIDERS: PCP Nurse Practitioner Family; Visit Provider Nurse Practitioner Family
DX: R20.2 Paresthesia of skin (principal); R27.9 Unspecified lack of coordination
CPT/HCPCS: 70551

== ENCOUNTER → 2021-03-06 08:11 | Outpatient (BNVA) | payer MEDICARE, MEDICAID, SELFPAY | PROVIDERS: PCP Nurse Practitioner Family; Referring Provider Nurse Practitioner Family; Visit Provider Psychiatry & Neurology Neurology | DX: R20.2 Paresthesia of skin (principal); M79.7 Fibromyalgia; G47.00 Insomnia, unspecified | CPT/HCPCS: 99215; G2212 ==

== ENCOUNTER 2021-08-30 15:45 | Outpatient (REF) | payer MEDICARE, MEDICAID, SELFPAY ==
[2021-08-30 20:53] LABS: Abs Immature Grans 0.04 10^3/uL (0.0-0.06); Absolute Eosinophil Count 0.21 10^3/uL (0.0-0.7); Absolute Lymphocyte Count 2.59 10^3/uL (1.2-3.4); Basophils % 0.8; Eosinophils % 1.8; HCT 41.8 % (36.0-46.0); HGB 12.5 g/dL (11.2-15.7); Immature Grans % 0.3; Lymphocytes % 21.7; MCHC 29.9 % (32.0-36.0); MCV 66.9 fL (80-95); MPV 11.7 fL (8.0-11.0); Neutrophils % 70.4; Nucleated RBC 0 %; Platelet Count 283 10^3/uL (130-400); RBC 6.25 10^6/uL (3.93-5.22); RDW 15.9 % (11.7-14.6); RDW-SD 34.6 fL; WBC 11.93 10^3/uL (4.4-10.8)
[2021-08-30 21:23] LABS: ALT 70 U/L (14-59); AST 74 U/L (15-37); Albumin 3.8 g/dL (3.4-5.0); Alkaline Phosphatase 152 U/L (46-116); Anion Gap 12.3 mmol/L (3-11); BUN 10 mg/dL (7-18); Bilirubin, Total 0.9 mg/dL (0.2-1.0); CO2 23.7 mmol/L (21.0-32.0); Calcium 9.5 mg/dL (8.5-10.1); Chloride 93 mmol/L (98-107); Estimated GFR 58.45 (mL/min/1.73m2); Potassium 4.5 mmol/L (3.5-5.1); Sodium 129 mmol/L (136-145); TSH (W/Ref FT4) 15.95 uIU/mL (0.36-3.74); Total Protein 8.3 g/dL (6.4-8.2)
[2021-08-30 21:35] LABS: Hemoglobin A1C 13.9 % (<5.7)
[2021-08-30 21:58] LABS: Glucose 524 mg/dL (74-106)
[2021-08-30 22:24] LABS: FREE T4 1.31 ng/dL (0.76-1.46)
== END 2021-08-30 15:46 | disposition home or self-care (01) ==
LOC: LBN 15:45
PROVIDERS: PCP Nurse Practitioner Family; Visit Provider Physician Assistant Medical
DX: E11.9 Type 2 diabetes mellitus without complications (principal); R10.9 Unspecified abdominal pain; E03.9 Hypothyroidism, unspecified
CPT/HCPCS: 80053; 83036; 84439; 84443; 85025; 87086

== ENCOUNTER 2021-09-02 00:41 | Outpatient (CLI) | payer MEDICARE, MEDICAID, SELFPAY ==
--- NOTE | 2021-09-02 | DI.US_ITS ---
Exam(s) US RENAL EXAM: US RENAL CLINICAL HISTORY: LT FLANK PAIN, R10.9, INTERMITTENT EPISODES PAIN SINCE DEC. TECHNIQUE: Gan scale, color and spectral Doppler were used. FINDINGS: Renal size in cm: Right: 12.5 left: 12.3 Echogenicity: Normal Hydronephrosis: No Cyst or mass: 11 millimeter cyst mid left kidney. Nephrolithiasis: No Bladder:Normal both ureteral jets were visualized. Prevoid vol:128 cc Postvoid vol:Empty IMPRESSION: Evidence of hydronephrosis or renal calculi. DATA REPOSITORY:
== END 2021-09-02 01:01 ==
PROVIDERS: PCP Nurse Practitioner Family; Visit Provider Physician Assistant Medical
DX: R10.32 Left lower quadrant pain (principal); N28.1 Cyst of kidney, acquired
CPT/HCPCS: 76770

== ENCOUNTER 2021-11-19 20:43 | Outpatient (REF) | payer MEDICARE, MEDICAID, SELFPAY ==
[2021-11-19 23:11] LABS: Abs Immature Grans 0.03 10^3/uL (0.0-0.06); Absolute Eosinophil Count 0.18 10^3/uL (0.0-0.7); Basophils % 0.8; Eosinophils % 1.4; HCT 40.6 % (36.0-46.0); HGB 12.1 g/dL (11.2-15.7); Immature Grans % 0.2; Lymphocytes % 20.4; MCH 19.9 pg (27.0-33.0); MCHC 29.8 % (32.0-36.0); MCV 66.9 fL (80-95); MPV 11.4 fL (8.0-11.0); Monocytes % 6.3; Neutrophils % 70.9; Platelet Count 440 10^3/uL (130-400); RBC 6.07 10^6/uL (3.93-5.22); RDW 16.8 % (11.7-14.6); RDW-SD 36.2 fL; WBC 12.67 10^3/uL (4.4-10.8)
[2021-11-19 23:16] LABS: Absolute Lymphocyte Count 2.58 10^3/uL (1.2-3.4); Absolute Neutrophil Count 8.98 10^3/uL (1.2-6.7)
[2021-11-20 00:05] LABS: ALT 41 U/L (14-59); AST 50 U/L (15-37); Albumin 3.7 g/dL (3.4-5.0); Alkaline Phosphatase 97 U/L (46-116); BUN 11 mg/dL (7-18); Bilirubin, Total 0.6 mg/dL (0.2-1.0); Calcium 9.3 mg/dL (8.5-10.1); Chloride 102 mmol/L (98-107); Estimated GFR 58.45 (mL/min/1.73m2); Glucose 134 mg/dL (74-106); Sodium 138 mmol/L (136-145); TSH (W/Ref FT4) 0.01 uIU/mL (0.36-3.74); Total Protein 7.9 g/dL (6.4-8.2)
[2021-11-20 00:36] LABS: FREE T4 2.36 ng/dL (0.76-1.46)
[2021-11-20 17:25] LABS: T3,Free 4.1 pg/mL (2.8-5.3)
== END 2021-11-19 20:44 | disposition home or self-care (01) ==
LOC: NCHCN 20:43
PROVIDERS: PCP Nurse Practitioner Family; Visit Provider Nurse Practitioner Family
DX: E03.9 Hypothyroidism, unspecified (principal); E11.9 Type 2 diabetes mellitus without complications
CPT/HCPCS: 80053; 84439; 84443; 84481; 85025

== ENCOUNTER 2021-12-23 09:37 | Outpatient (REF) | payer MEDICARE, MEDICAID, SELFPAY ==
[2021-12-23 16:34] LABS: HCT 39.9 % (36.0-46.0); HGB 11.8 g/dL (11.2-15.7); MCH 19.9 pg (27.0-33.0); MCHC 29.6 % (32.0-36.0); MCV 67 fL (80-95); MPV 11.3 fL (8.0-11.0); Platelet Count 416 10^3/uL (130-400); RBC 5.93 10^6/uL (3.93-5.22); RDW 15.7 % (11.7-14.6); RDW-SD 36.8 fL
[2021-12-23 17:07] LABS: FREE T4 2.15 ng/dL (0.76-1.46); TSH 0.01 uIU/mL (0.36-3.74)
[2021-12-24 17:53] LABS: T3,Free 3.2 pg/mL (2.8-5.3)
== END 2021-12-23 09:38 | disposition home or self-care (01) ==
LOC: NCHCN 09:37
PROVIDERS: PCP Nurse Practitioner Family; Visit Provider Nurse Practitioner Family
DX: E03.9 Hypothyroidism, unspecified (principal); D56.3 Thalassemia minor; F43.0 Acute stress reaction; F43.10 Post-traumatic stress disorder, unspecified
CPT/HCPCS: 85027; 84439; 84443; 84481

== ENCOUNTER 2021-12-26 09:04 | Outpatient (REF) | payer MEDICARE, MEDICAID, SELFPAY | END 2021-12-26 09:05 | disposition home or self-care (01) | LOC: NCHCN 09:04 | PROVIDERS: PCP Nurse Practitioner Family; Visit Provider Nurse Practitioner Family | DX: D56.3 Thalassemia minor (principal); E03.9 Hypothyroidism, unspecified; E11.9 Type 2 diabetes mellitus without complications; M79.7 Fibromyalgia; F43.10 Post-traumatic stress disorder, unspecified; F43.0 Acute stress reaction | CPT/HCPCS: 82533 ==

== ENCOUNTER 2022-02-26 09:07 | Outpatient (REF) | payer MEDICARE, MEDICAID, SELFPAY ==
[2022-02-26 16:22] LABS: Abs Immature Grans 0.04 10^3/uL (0.0-0.06); Absolute Basophil Count 0.07 10^3/uL (0.0-0.2); Absolute Eosinophil Count 0.24 10^3/uL (0.0-0.7); Absolute Lymphocyte Count 2.16 10^3/uL (1.2-3.4); Absolute Monocyte Count 0.51 10^3/uL (0.1-0.8); Absolute Neutrophil Count 7.46 10^3/uL (1.2-6.7); Basophils % 0.7; Eosinophils % 2.3; HCT 37.7 % (36.0-46.0); HGB 11.6 g/dL (11.2-15.7); Immature Grans % 0.4; Lymphocytes % 20.6; MCHC 30.8 % (32.0-36.0); MCV 65 fL (80-95); MPV 11.8 fL (8.0-11.0); Monocytes % 4.9; Neutrophils % 71.1; Platelet Count 343 10^3/uL (130-400); RDW 15.9 % (11.7-14.6); RDW-SD 35.5 fL; WBC 10.48 10^3/uL (4.4-10.8)
[2022-02-26 17:02] LABS: ALT 42 U/L (14-59); AST 39 U/L (15-37); Albumin 3.5 g/dL (3.4-5.0); Alkaline Phosphatase 90 U/L (46-116); Anion Gap 8.8 mmol/L (3-11); BUN 14 mg/dL (7-18); Bilirubin, Total 0.6 mg/dL (0.2-1.0); CO2 24.2 mmol/L (21.0-32.0); CREATININE 0.9 mg/dL (0.55-1.02); Calcium 8.9 mg/dL (8.5-10.1); Chloride 104 mmol/L (98-107); Glucose 122 mg/dL (74-106); Potassium 4.1 mmol/L (3.5-5.1); Sodium 137 mmol/L (136-145)
[2022-02-26 17:34] LABS: Hemoglobin A1C 7.1 % (<5.7)
[2022-02-26 18:16] LABS: Diff Comment RBC Morph Reviewed; Hypochromasia 2+; Microcytosis 2+; Polychromasia Present
== END 2022-02-26 09:08 | disposition home or self-care (01) ==
LOC: NCHCN 09:07
PROVIDERS: PCP Nurse Practitioner Family; Visit Provider Nurse Practitioner Family
DX: E11.9 Type 2 diabetes mellitus without complications (principal); E03.9 Hypothyroidism, unspecified; F41.1 Generalized anxiety disorder; K75.81 Nonalcoholic steatohepatitis (NASH); K56.3 Gallstone ileus; M79.7 Fibromyalgia
CPT/HCPCS: 80053; 83036; 84439; 84443; 85025

== ENCOUNTER 2022-05-05 09:35 | Outpatient (REF) | payer MEDICARE, MEDICAID, SELFPAY ==
[2022-05-05 16:29] LABS: TSH (W/Ref FT4) 1.38 uIU/mL (0.36-3.74)
== END 2022-05-05 09:36 | disposition home or self-care (01) ==
LOC: NCHCN 09:35
PROVIDERS: Visit Provider Nurse Practitioner Family
DX: E03.9 Hypothyroidism, unspecified (principal)
CPT/HCPCS: 84443

== ENCOUNTER 2022-12-31 16:21 | Outpatient (REF) | payer MEDICARE, MEDICAID, SELFPAY ==
[2022-12-31 17:37] LABS: Abs Immature Grans 0.05 10^3/uL (0.0-0.06); Absolute Basophil Count 0.09 10^3/uL (0.0-0.2); Absolute Eosinophil Count 0.24 10^3/uL (0.0-0.7); Absolute Lymphocyte Count 2.59 10^3/uL (1.2-3.4); Absolute Monocyte Count 0.68 10^3/uL (0.1-0.8); Absolute Neutrophil Count 9.17 10^3/uL (1.2-6.7); Basophils % 0.7; Eosinophils % 1.9; HCT 41.7 % (36.0-46.0); HGB 12.7 g/dL (11.2-15.7); Immature Grans % 0.4; Lymphocytes % 20.2; MCHC 30.5 % (32.0-36.0); MCV 66 fL (80-95); MPV 11.4 fL (8.0-11.0); Monocytes % 5.3; Neutrophils % 71.5; Platelet Count 372 10^3/uL (130-400); RBC 6.35 10^6/uL (3.93-5.22); RDW 16.3 % (11.7-14.6); RDW-SD 34.6 fL; WBC 12.82 10^3/uL (4.4-10.8)
[2022-12-31 18:04] LABS: ALT 27 U/L (14-59); AST 23 U/L (15-37); Albumin 3.8 g/dL (3.4-5.0); Alkaline Phosphatase 103 U/L (46-116); Anion Gap 11.9 mmol/L (3-11); BUN 13 mg/dL (7-18); Bilirubin, Total 0.6 mg/dL (0.2-1.0); CO2 21.1 mmol/L (21.0-32.0); CREATININE 0.9 mg/dL (0.55-1.02); Calculated LDL 166 mg/dL (<100); Chloride 105 mmol/L (98-107); Cholesterol 239 mg/dL (<200); Estimated GFR 76.92 (mL/min/1.73m2); Glucose 128 mg/dL (74-106); HDL Cholesterol 45 mg/dL (40-60); Potassium 4.1 mmol/L (3.5-5.1); Sodium 138 mmol/L (136-145); TSH (W/Ref FT4) 0.55 uIU/mL (0.36-3.74); Total Protein 8.2 g/dL (6.4-8.2); Triglyceride 144 mg/dL (<150)
[2022-12-31 19:17] LABS: Diff Comment Diff Reviewed; Hypochromasia 2+; Microcytosis 2+
== END 2022-12-31 16:22 | disposition home or self-care (01) ==
LOC: NCHCN 16:21
PROVIDERS: Visit Provider Nurse Practitioner Family
DX: E11.9 Type 2 diabetes mellitus without complications (principal); E03.9 Hypothyroidism, unspecified; E78.5 Hyperlipidemia, unspecified; F43.10 Post-traumatic stress disorder, unspecified; D56.3 Thalassemia minor
CPT/HCPCS: 80053; 80061; 84443; 85025

== ENCOUNTER 2023-02-06 15:26 | Outpatient (REF) | payer MEDICARE, MEDICAID, SELFPAY ==
[2023-02-06 14:26] LABS: Abs Immature Grans 0.07 10^3/uL (0.0-0.06); Absolute Eosinophil Count 0.16 10^3/uL (0.0-0.7); Absolute Monocyte Count 0.91 10^3/uL (0.1-0.8); Absolute Neutrophil Count 13.59 10^3/uL (1.2-6.7); Basophils % 0.8; Eosinophils % 0.9; HCT 46.8 % (36.0-46.0); HGB 14.5 g/dL (11.2-15.7); Immature Grans % 0.4; Lymphocytes % 16.4; MCH 20.1 pg (27.0-33.0); MCV 65 fL (80-95); Monocytes % 5.1; Neutrophils % 76.4; RBC 7.21 10^6/uL (3.93-5.22); RDW 17.3 % (11.7-14.6); RDW-SD 34.2 fL; WBC 17.79 10^3/uL (4.4-10.8)
[2023-02-06 14:29] LABS: ESR > 120 mm/hr (0-30)
[2023-02-06 14:30] LABS: Absolute Basophil Count 0.14 10^3/uL (0.0-0.2); Absolute Lymphocyte Count 2.92 10^3/uL (1.2-3.4)
[2023-02-06 14:44] LABS: Anion Gap 13.6 mmol/L (3-11); BUN 9 mg/dL (7-18); C-Reactive Protein 3.35 mg/dL (0.0-0.3); CO2 23.4 mmol/L (21.0-32.0); Chloride 103 mmol/L (98-107); Estimated GFR 67.78 (mL/min/1.73m2); Glucose 151 mg/dL (74-106); Potassium 5.4 mmol/L (3.5-5.1); Sodium 140 mmol/L (136-145)
[2023-02-06 14:51] LABS: Diff Comment RBC Morph Reviewed
[2023-02-06 14:53] LABS: Microcytosis 2+
== END 2023-02-06 15:27 | disposition home or self-care (01) ==
LOC: LBN 15:26
PROVIDERS: Visit Provider Physician Assistant Medical
DX: R59.1 Generalized enlarged lymph nodes (principal); R39.15 Urgency of urination
CPT/HCPCS: 80048; 85652; 85025; 86140

== ENCOUNTER 2023-02-07 13:12 | Emergency (ER) | payer MEDICARE, MEDICAID, SELFPAY ==
[2023-02-07 13:22] VITALS: BP 124/97; PULSE 106; RESP 18; TEMP 36.5; O2SAT 98
[2023-02-07 13:28] VITALS: RESP 22
--- NOTE | 2023-02-07 15:15 | DI.CT_ITS ---
Exam(s) CT CHEST/ABD/PEL WO EXAM: CT CHEST/ABD/PEL WO CLINICAL HISTORY: chest pain and abdominal pain. TECHNIQUE: Imaging Protocol: Axial computed tomography images with coronal and sagittal reformatted images were created and reviewed CONTRAST MATERIAL: Intravenous: None given. Patient stated prior contrast reaction. Oral: / no US US RENAL from 09/02/2021 FINDINGS: CHEST: Tracheobronchial tree: Patent where visualized. Pulmonary parenchyma: No consolidation or dominant measurable mass. Pleura: No effusion or pneumothorax. Lymph nodes: Within normal limits. Aorta: Thoracic portion non-dilated. Heart: Bones: Unremarkable for age. No lytic or blastic lesions.No compression fractures. ABDOMEN: Liver: Enlarged. Fatty infiltration. No measurable mass. Gallbladder and biliary tract: Status post cholecystectomy. No radiodense calculus or dilation. Pancreas: Normal density, no abnormal calcifications or inflammatory process. Spleen: Normal. Kidneys: Normal size, contour and axis. No radiodense stones or obstructive uropathy. Two small hype rdense cysts noted in the left kidney. No follow-up recommended. No suspicious masses seen. Adrenal glands: No masses seen. Aorta: Abdominal portion non-dilated. Lymph nodes: Within normal limits. Soft tissues: Unremarkable. PELVIS: Bladder: Symmetric distention, no gross wall thickening. Bowel: No obstruction or bowel wall thickening. Peritoneal cavity: No ascites, collection or mesenteric inflammatory response. Bones: Degenerative changes in the spine. Reproductive organs: Within normal limits. IMPRESSION: No acute abnormality in the chest, abdomen or pelvis.. RADIATION DOSE DELIVERED: 1,435.42mGy.cm Total DLP DATA REPOSITORY: All CT scans at this facility are submitted to the National Radiology Data Registry (NRDR) Dose Index Registry (DIR) with the [employer] (ACR). RADIATION OPTIMIZATION: All CT scans at this facility use at least one of these dose optimization te chniques: automated exposure control; mA and/or kV adjustment per patient size (includes targeted exa ms where dose is matched to clinical indication); or iterative reconstruction.
[2023-02-07 15:45] LABS: Abs Immature Grans 0.06 10^3/uL (0.0-0.06); Absolute Eosinophil Count 0.17 10^3/uL (0.0-0.7); Absolute Monocyte Count 0.94 10^3/uL (0.1-0.8); Absolute Neutrophil Count 10.48 10^3/uL (1.2-6.7); Basophils % 0.8; Eosinophils % 1.1; HCT 45.5 % (36.0-46.0); HGB 14.3 g/dL (11.2-15.7); Immature Grans % 0.4; Lymphocytes % 24.8; MCH 20.3 pg (27.0-33.0); MCHC 31.4 % (32.0-36.0); MCV 65 fL (80-95); MPV 10.4 fL (8.0-11.0); Neutrophils % 66.9; Platelet Count 424 10^3/uL (130-400); RBC 7.05 10^6/uL (3.93-5.22); RDW 16.8 % (11.7-14.6); RDW-SD 33.2 fL; WBC 15.66 10^3/uL (4.4-10.8)
[2023-02-07 15:48] LABS: ESR 105 mm/hr (0-30)
[2023-02-07 15:52] LABS: Absolute Basophil Count 0.13 10^3/uL (0.0-0.2); Absolute Lymphocyte Count 3.88 10^3/uL (1.2-3.4); Mono Screening Negative (Negative)
[2023-02-07 16:06] LABS: Diff Comment RBC Morph Reviewed
[2023-02-07 16:07] LABS: Microcytosis 3+; Polychromasia Present
[2023-02-07 16:08] LABS: ALT 27 U/L (14-59); AST 28 U/L (15-37); Albumin 3.9 g/dL (3.4-5.0); Alkaline Phosphatase 121 U/L (46-116); Anion Gap 12.9 mmol/L (3-11); BUN 12 mg/dL (7-18); Bilirubin, Total 1.1 mg/dL (0.2-1.0); C-Reactive Protein 4.28 mg/dL (0.0-0.3); CO2 25.1 mmol/L (21.0-32.0); CREATININE 1.1 mg/dL (0.55-1.02); Calcium 9.9 mg/dL (8.5-10.1); Chloride 102 mmol/L (98-107); Estimated GFR 60.46 (mL/min/1.73m2); Glucose 120 mg/dL (74-106); Sodium 140 mmol/L (136-145)
[2023-02-07 16:09] LABS: Potassium 4.4 mmol/L (3.5-5.1)
[2023-02-07] MEDS: Normal Saline Flush 10 ML SYR IVP (16:40)
[2023-02-07] MEDS: Normal Saline - Diluent 50 ML VIAL IJ (16:41)
--- NOTE | 2023-02-07 17:08 | W.ED.GENAD ---
Discharge Plan Disposition Patient Disposition: Home Discharge Details Chief Complaint: GenMedical Clinical Impression: Chest fullness, Lesion of left paimiut kidney, Leukocytosis, Abnormal laboratory test, Insomnia Primary Care Provider: GREG MCKEON ED Provider: Kelley Hart Home Meds and New Rx's Prescriptions: No Action levothyroxine 175 mcg tablet 175 mcg PO .6 x a week Discharge Instructions Instructions: Leukocytosis (ED) Additional Instructions: Call your primary care provider and cellophane casting machine repairer on Thursday the for follow-up. Bring the results of your labs and CTs with you. Return here if you develop any new or worrisome symptoms. Referrals: GREG MCKEON, CHIEF MECHANICAL OFFICER [Primary Care Provider] - 1 week (Please follow left renal lesion found on CT and inflammatory markers. Patient is advised to follow-up with her cellophane casting machine repairer at [facility].) Discharge Data Discharge Date/Time-TO BE ENTERED AT DEPARTURE: 02/07/23 17:44 Discharge Physician: Kelley Hart Medical Decision Making This is a 52-year-old female with complaints of swelling of her chest and axilla. She has been seen multiple times for this and has noted increased white count over the past year. Today she is complaining of swelling under her arms with pain and swelling of her breast. Her breasts appear normal. There is no evidence of mastitis and I cannot palpate any tumors or lesions. She told me later she is also been having epigastric discomfort. She does have a history of an iodine allergy but has had a CT with IV contrast in 2018 without any adverse reaction. Of note she did have lymphadenopathy at that time. My plan is to obtain a CT of the chest with IV contrast to rule out any masses or an infectious process. We will also recheck her white count and inflammatory markers. She is declining anything for anxiety or pain presently. Medical Records Medical records reviewed: Yes I reviewed the patient's medical records. Imaging Data Radiologic Study: Radiologist's impression: PROCEDURE INFORMATION: Exam: CT Chest Without Contrast; Diagnostic Exam date and time: 02/07/2023 4:44 PM Age: 52 years old Clinical indication: Abdominal tenderness; Shortness of breath TECHNIQUE: Imaging protocol: Diagnostic computed tomography of the chest without contrast. COMPARISON: CR XR CHEST 2V PA LATERAL 06/20/2018 12:58 PM FINDINGS: Lungs: Unremarkable. No consolidation. No masses. Pleural spaces: Unremarkable. No pneumothorax. No pleural effusion. Heart: Unremarkable. No cardiomegaly. No pericardial effusion. Lymph nodes: Unremarkable. No enlarged lymph nodes. Vasculature: Unremarkable. No aortic aneurysm.? Bones/joints: Unremarkable. No acute fracture. Soft tissues: Unremarkable. IMPRESSION: No acute abnormality seen to account for symptoms. PROCEDURE INFORMATION: Exam: CT Abdomen And Pelvis Without Contrast Exam date and time: 02/07/2023 4:44 PM Age: 52 years old Clinical indication: Abdominal tenderness; Shortness of breath TECHNIQUE: Imaging protocol: Computed tomography of the abdomen and pelvis without contrast. COMPARISON: CT Private^ROUTINE ABDOMEN PELVIS WITH CONTRAST (Adult) 06/20/2018 12:45 PM FINDINGS: Liver: Mild hepatomegaly. This is unchanged from prior study. Gallbladder and bile ducts: Status post cholecystectomy. Pancreas: Normal. No ductal dilation. Spleen: Borderline splenomegaly. Unchanged from prior study. Adrenal glands: Normal. No mass. Kidneys and ureters: Interval development left renal midpole lesion, possible soft tissue density 13 mm in diameter. Previously seen atypical cyst again noted at the left renal upper pole level. Stomach and bowel: Unremarkable. No obstruction. No mucosal thickening. Appendix: The appendix is well seen, within normal limits. Intraperitoneal space: Unremarkable. No free air. No significant fluid collection. Vasculature: Mild atherosclerotic change present in the vasculature. Mild atherosclerotic change present in the vasculature. Lymph nodes: Unremarkable. No enlarged lymph nodes. Urinary bladder: The bladder is decompressed. Reproductive: Unremarkable as visualized. Bones/joints: Unremarkable. No acute fracture. Soft tissues: Unremarkable. IMPRESSION: 1. ? No definite acute abnormality seen to account for symptoms. 2. ? Follow-up atypical left renal midpole lesion, possible soft tissue mass. Dictated and Authenticated by: Deanna Johnson MD. Lab Data Lab results reviewed: Yes I reviewed the patient's lab results. HPI General Date/Time Provider Initiated Documentation: 02/07/23 13:43. Information obtained by: patient. History of Present Illness described as moderate, HPI Narrative: Time seen was 1445 in bed 4. The patient is a 52-year-old female with history of fibromyalgia who has had symptoms of arm and chest swelling on and off since August of this year. She has been seen by multiple providers for this issue. She is complaining of feeling as though her breasts are full and is complaining of swelling underneath her arms. She is scheduled for a mammography. She denies any fevers or chills. She tells me she has been checked for Lyme disease. She notes that she has had an increasing white count and increasing inflammatory markers over the past year. She tells me she does have a cellophane casting machine repairer, but feels as though her symptoms are being ignored. She denies any aggravating or alleviating factors. The patient tells me that she does have an allergy to iodine but the patient did have a CT of the abdomen and pelvis with IV contrast on 06/20/2018. At that time she was noticed to have periaortic lymphadenopathy. She tells me that she has been tested for Lyme disease and does not have it. She has never been tested for mononucleosis Related Data Home Medications Medication Instructions Recorded Confirmed levothyroxine 175 mcg tablet 175 mcg PO .6 x a week 03/06/21 02/07/23 Allergies Allergy/AdvReac Type Severity Reaction Status Date / Time iodine Allergy Severe Skin Rash Unverified 02/07/23 13:21 oxycodone [Oxycodone] Allergy Severe Itching Unverified 02/07/23 13:21 Penicillins Allergy Severe Anaphylaxsi Unverified 02/07/23 13:21 s shellfish derived Allergy Severe Itching Unverified 02/07/23 13:21 morphine Allergy Intermediate Itching Unverified 02/07/23 13:21 tramadol AdvReac Intermediate Nausea Unverified 02/07/23 13:21 General Stated Complaint: GenMedical TRACE: 4 Review of Systems Constitutional Comments: The patient states she has chronic insomnia PFSH All Active Problems (Updated 02/07/23 @ 17:44 by Kelley Hart MD) Chest fullness (Acute) Lesion of left paimiut kidney (Acute) Leukocytosis (Acute) Abnormal laboratory test (Acute) Insomnia (Acute) Paresthesia (Acute) Internal derangement of left knee (Acute 05/06/19) Chondromalacia patellae of left knee (Acute 05/06/19) History of laparoscopic cholecystectomy (Acute ~09/08/18) Biliary dyskinesia (Acute) Fibromyalgia (Acute) H/O colonoscopy (Chronic ~05/2018) H/O esophagogastroduodenoscopy (Chronic ~05/2018) H/O radioactive iodine thyroid ablation (Acute) Gastritis (Acute) Esophagitis determined by endoscopy (Acute) WALLACE (nonalcoholic steatohepatitis) (Acute) Hiatal hernia (Chronic) Gallstones (Acute) Lymphadenopathy, abdominal (Acute) Splenomegaly (Acute) Beta 0 thalassemia (Acute) Medical History Acute stress reaction Adjustment disorder Beta thalassemia trait Bipolar affective disorder Chronic pain Diabetes Effusion of left knee Generalized anxiety disorder Graves disease Hyperlipidemia Hypothyroidism Iron deficiency Obesity, morbid PTSD (post-traumatic stress disorder) Surgical History H/O tubal ligation Hx of dilation and curettage S/P laparoscopic procedure S/P radioactive iodine thyroid ablation S/P tonsillectomy Family History Mother WALLACE (nonalcoholic steatohepatitis) Hypothyroidism Hypertension Hyperlipidemia Diabetes Heart disease Father Hypothyroidism Pancreatic cancer Diabetes Hypertension Hyperlipidemia Stroke Heart disease Other CVD (cardiovascular disease) Colon cancer Lung cancer Social History Smoking/Tobacco Use Status: Never Smoking risk assessment performed?: Yes Alcohol Intake: current Alcohol Intake frequency: holidays/special occasions only Alcohol type: beer Drug use: Daily Substance use type: marijuana Household members: children and friend(s) Housing: apartment Number of Children: 1 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 She does appear anxious and frustrated. Const General: cooperative, comfortable and well developed Other: The patient was watching videos on her phone when I walked in the room HENOK Head: normal to inspection, no palpable skull fracture, normocephalic and atraumatic Ears: hearing grossly normal bilaterally, external ears normal and TM's normal bilaterally General nose exam: external nose normal and nares normal Face and sinus: normal facial exam Mouth: oral mucosae normal and moist mucous membranes Throat: posterior oropharynx normal Eyes General: appearance normal, both eyes and all related structures Periorbital: periorbital findings normal Eyelids: eyelids normal Conjunctivae: conjunctivae normal Sclera: sclerae normal Pupils: PERRL EOM: EOM intact bilaterally Neck Neck: normal visual inspection, full ROM, no lymphadenopathy, no meningeal signs, trachea midline and no lymphadenopathy noted Chest Chest: normal inspection of the chest Breast inspection: normal inspection of the breasts Breast palpation: normal palpation of the breasts and axillary lymphadenopathy (Bilateral) Resp Effort & Inspection: normal respiratory effort and able to speak in complete sentences Auscultation: clear to auscultation bilaterally Cardio Jugular venous pressure: no JVD Palpation: normal PMI Rhythm: regular rhythm Heart Sounds: S1 normal, S2 normal, no gallops, no murmurs and no rubs GI Inspection: normal to inspection Palpation: soft and no hepatosplenomegaly Auscultation: normal bowel sounds Back/Spine/Pelvis Back: no CVA tenderness Skin General skin exam: turgor normal and other (Her skin is warm and dry normal for ethnicity) Neuro General: patient alert, patient awake, patient oriented x3, gait normal, no meningeal signs, no focal motor deficits and CN's II-XI intact bilaterally Speech: speech normal Gait: normal gait Motor: muscle tone normal throughout Sensory Exam: no sensory deficits noted Extrem General: normal to inspection, full ROM and capillary refill normal Psych Appearance: grossly normal Other: The patient appears to have capacity to make medical decisions. At times she is anxious requesting to leave. I have spoken to her several times convincing her to stay for the results Course Reevaluation(s) Time: 17:27 Reevaluation: The patient is requesting to leave Vital Signs Vital signs: Vital Signs Temperature 36.5 C 02/07/23 13:22 Pulse 106 H 02/07/23 13:22 Respiratory Rate 18 02/07/23 13:22 Blood Pressure 124/97 H 02/07/23 13:22 Pulse Oximetry 98 02/07/23 13:22 Temperature 36.5 C 02/07/23 13:22 Temperature Source Temporal Artery Scan 02/07/23 13:22 Pulse 106 H 02/07/23 13:22 Respiratory Rate 22 02/07/23 13:28 Respiratory Effort Normal, Non-Labored 02/07/23 13:28 Respiratory Depth Normal 02/07/23 13:28 Respiratory Pattern Normal 02/07/23 13:28 Blood Pressure 124/97 H 02/07/23 13:22 Blood Pressure Position Sitting 02/07/23 13:22 Pulse Oximetry 98 02/07/23 13:22 Oxygen Delivery Method Room Air 02/07/23 13:22 Oxygen Flow Rate 0 02/07/23 13:22 Pain Level 8 02/07/23 13:22 Lab/Test Results Lab/Test Results: Laboratory Tests Range/Units 02/07/23 02/07/23 02/07/23 15:30 15:30 15:30 WBC (4.4-10.8) 10^3/uL RBC (3.93-5.22) 10^6/uL Hgb (11.2-15.7) g/dL Hct (36.0-46.0) % MCV (80-95) fL MCH (27.0-33.0) pg MCHC (32.0-36.0) % RDW (11.7-14.6) % Plt Count (130-400) 10^3/uL MPV (8.0-11.0) fL Immature Gran % Neutrophils % Lymphocytes % Monocytes % Eosinophils % Basophils % Nucleated RBC % (0.0-0.3) % Absolute Neutrophils (1.2-6.7) 10^3/uL Absolute Lymphocytes (1.2-3.4) 10^3/uL Absolute Monocytes (0.1-0.8) 10^3/uL Absolute Eosinophils (0.0-0.7) 10^3/uL Absolute Basophils (0.0-0.2) 10^3/uL RBC Morphology Polychromasia Microcytosis ESR (0-30) mm/hr 105 H Sodium (136-145) mmol/L 140 Potassium (3.5-5.1) mmol/L 4.4 D Chloride (98-107) mmol/L 102 Carbon Dioxide (21.0-32.0) mmol/L 25.1 Anion Gap (3-11) mmol/L 12.9 H BUN (7-18) mg/dL 12 Creatinine (0.55-1.02) mg/dL 1.1 H Est GFR (CKD-EPI 2020) (mL/min/1.73m2) 60.46 Glucose (74-106) mg/dL 120 H Calcium (8.5-10.1) mg/dL 9.9 Total Bilirubin (0.2-1.0) mg/dL 1.1 H AST (15-37) U/L 28 ALT (14-59) U/L 27 Alkaline Phosphatase (46-116) U/L 121 H C-Reactive Protein (0.0-0.3) mg/dL 4.28 H Total Protein (6.4-8.2) g/dL 9.0 H Albumin (3.4-5.0) g/dL 3.9 TSH (0.36-3.74) uIU/mL 0.80 Monoscreen (Negative) Negative Range/Units 02/07/23 15:30 WBC (4.4-10.8) 10^3/uL 15.66 H RBC (3.93-5.22) 10^6/uL 7.05 H Hgb (11.2-15.7) g/dL 14.3 Hct (36.0-46.0) % 45.5 MCV (80-95) fL 65 L MCH (27.0-33.0) pg 20.3 L MCHC (32.0-36.0) % 31.4 L RDW (11.7-14.6) % 16.8 H Plt Count (130-400) 10^3/uL 424 H MPV (8.0-11.0) fL 10.4 Immature Gran % 0.4 Neutrophils % 66.9 Lymphocytes % 24.8 Monocytes % 6.0 Eosinophils % 1.1 Basophils % 0.8 Nucleated RBC % (0.0-0.3) % 0.0 Absolute Neutrophils (1.2-6.7) 10^3/uL 10.48 H Absolute Lymphocytes (1.2-3.4) 10^3/uL 3.88 H Absolute Monocytes (0.1-0.8) 10^3/uL 0.94 H Absolute Eosinophils (0.0-0.7) 10^3/uL 0.17 Absolute Basophils (0.0-0.2) 10^3/uL 0.13 RBC Morphology See Below Polychromasia Present Microcytosis 3+ ESR (0-30) mm/hr Sodium (136-145) mmol/L Potassium (3.5-5.1) mmol/L Chloride (98-107) mmol/L Carbon Dioxide (21.0-32.0) mmol/L Anion Gap (3-11) mmol/L BUN (7-18) mg/dL Creatinine (0.55-1.02) mg/dL Est GFR (CKD-EPI 2020) (mL/min/1.73m2) Glucose (74-106) mg/dL Calcium (8.5-10.1) mg/dL Total Bilirubin (0.2-1.0) mg/dL AST (15-37) U/L ALT (14-59) U/L Alkaline Phosphatase (46-116) U/L C-Reactive Protein (0.0-0.3) mg/dL Total Protein (6.4-8.2) g/dL Albumin (3.4-5.0) g/dL TSH (0.36-3.74) uIU/mL Monoscreen (Negative) PAWSS Have you Been Recently Intoxicated or Drunk Within the Last 30 days?: No Have you Ever Experienced Previous Episodes of Alcohol Withdrawal?: No Have you ever Experienced Withdrawal Seizures?: No Have you ever Experienced Delirium Tremens(DT)s?: No Have you ever undergone Alcohol Rehabilitation Treatment (i.e, inpt ot outpatient treatment programs)?: No Have you ever Experienced Blackouts?: No Have you ever Combined Alcohol with other Downers within the last 90 days?: No Have you ever Combined Alcohol with any other Substance of Abuse during the last 90 days?: No Positive Blood Alcohol level on Presentation? [PCS.BAL]: No Evidence of Increased Autonomic Activity (i.e. HR>120, tremor, sweating, agitation, nausea)?: No Result: 0
--- NOTE | 2023-02-07 17:26 | DI.VRAD_ITS ---
PROCEDURE INFORMATION: Exam: CT Chest Without Contrast; Diagnostic Exam date and time: 02/07/2023 4:44 PM Age: 52 years old Clinical indication: Abdominal tenderness; Shortness of breath TECHNIQUE: Imaging protocol: Diagnostic computed tomography of the chest without contrast. COMPARISON: CR XR CHEST 2V PA LATERAL 06/20/2018 12:58 PM FINDINGS: Lungs: Unremarkable. No consolidation. No masses. Pleural spaces: Unremarkable. No pneumothorax. No pleural effusion. Heart: Unremarkable. No cardiomegaly. No pericardial effusion. Lymph nodes: Unremarkable. No enlarged lymph nodes. Vasculature: Unremarkable. No aortic aneurysm. Bones/joints: Unremarkable. No acute fracture. Soft tissues: Unremarkable. IMPRESSION: No acute abnormality seen to account for symptoms. PROCEDURE INFORMATION: Exam: CT Abdomen And Pelvis Without Contrast Exam date and time: 02/07/2023 4:44 PM Age: 52 years old Clinical indication: Abdominal tenderness; Shortness of breath TECHNIQUE: Imaging protocol: Computed tomography of the abdomen and pelvis without contrast. COMPARISON: CT Private^ROUTINE ABDOMEN PELVIS WITH CONTRAST (Adult) 06/20/2018 12:45 PM FINDINGS: Liver: Mild hepatomegaly. This is unchanged from prior study. Gallbladder and bile ducts: Status post cholecystectomy. Pancreas: Normal. No ductal dilation. Spleen: Borderline splenomegaly. Unchanged from prior study. Adrenal glands: Normal. No mass. Kidneys and ureters: Interval development left renal midpole lesion, possible soft tissue density 13 mm in diameter. Previously seen atypical cyst again noted at the left renal upper pole level. Stomach and bowel: Unremarkable. No obstruction. No mucosal thickening. Appendix: The appendix is well seen, within normal limits. Intraperitoneal space: Unremarkable. No free air. No significant fluid collection. Vasculature: Mild atherosclerotic change present in the vasculature. Mild atherosclerotic change present in the vasculature. Lymph nodes: Unremarkable. No enlarged lymph nodes. Urinary bladder: The bladder is decompressed. Reproductive: Unremarkable as visualized. Bones/joints: Unremarkable. No acute fracture. Soft tissues: Unremarkable. IMPRESSION: 1. No definite acute abnormality seen to account for symptoms. 2. Follow-up atypical left renal midpole lesion, possible soft tissue mass. Dictated and Authenticated by: Deanna Johnson MD. Ordering:LISA Benson MD
== END 2023-02-07 17:51 | disposition home or self-care (01) ==
PROVIDERS: Emergency Provider Emergency Medicine Emergency Medical Services; PCP Nurse Practitioner Family
DX: N64.4 Mastodynia (principal); R07.89 Other chest pain; N28.9 Disorder of kidney and ureter, unspecified; D72.829 Elevated white blood cell count, unspecified; G47.00 Insomnia, unspecified; M79.7 Fibromyalgia; E03.9 Hypothyroidism, unspecified; Z90.49 Acquired absence of other specified parts of digestive tract; Z79.899 Other long term (current) drug therapy
CPT/HCPCS: 71250; 80053; 85652; 99284; 74176; 84443; 85025; 86140; 86308; 99283

== ENCOUNTER → 2023-07-14 02:28 | Outpatient (CLI) | payer MEDICARE, MEDICAID, SELFPAY ==
--- NOTE | 2023-07-14 | DI.MAMMO_ITS ---
Exam(s) MAMMO SCREENING EXAM: MAMMO SCREENING CLINICAL HISTORY: Z12.39 Screening TECHNIQUE: Bilateral full field digital CC and MLO mammographic images were obtained with 3D tomosyn thesis and utilizing computer aided detection (CAD). COMPARISON: Available for comparison. FINDINGS: Masses/Architectural Distortion: No suspicious nodules or areas of architectural distortion are seen. Microcalcifications: No suspicious pleomorphic-type are seen. Skin Thickening/Nipple Retraction: None. IMPRESSION: 1. No significant interval change with no specific features of malignancy noted. 2. Unless there is more urgent need, screening mammography is recommended, as per [employer] guidelines. BI-RADS Category 1 - Negative Breast Density - Category B - Scattered areas of fibroglandular density Breast density category C or D implies that the patient has dense breast tissue. Dense breast tissue is very common and is not abnormal but dense breast tissue can make it harder to find cancer on a ma mmogram. Also, dense breast tissue may increase their breast cancer risk. This information about the result of the mammogram report was provided to the patient to raise their awareness. Use this report when you speak with the patient about their risks for breast cancer, which includes their family hist ory. At that time, you may recommend for more screening tests (Ultrasound or MRI) as they might be us eful based on their risk. A negative radiographic report should not delay biopsy if a dominant or clinically suspicious mass is present. Up to ten percent of cancers are not identified on mammography. A negative report may reinforce clinical impression. Adenosis and dense breasts may obscure an underlying neoplasm. False positive reports average 6 to 10%. Patient will receive a letter notifying them of these results.
== END ==
PROVIDERS: PCP Nurse Practitioner Family; Visit Provider Nurse Practitioner Family
DX: Z12.31 Encounter for screening mammogram for malignant neoplasm of breast (principal)
CPT/HCPCS: 77063; 77067

== ENCOUNTER 2024-02-29 16:33 | Outpatient (REF) | payer MEDICARE, MEDICAID, SELFPAY ==
--- OUTSIDE RECORDS SUMMARY | 2024-02-29 16:47 | XMS_ITS | Encounter Summary ---
[place] [address] Care Team Providers Care Residential Support Worker Name Role Phone Soheila Marmolejo APRN Primary Care Provider [phone] Reason for Referral * Consultation (Routine) - Closed Specialty Diagnoses / Procedures Referred By Elisabet t Referred To Contact Endocrinology Diagnoses Hypothyroidism, unspecified type Soheila Marmolejo APRN [address] [place] [address] [facility] [address] [place] [phone] Referral ID Status Reason Start Date Expiration Date V isits Requested Visits Authorized [id number] Closed Consult, Test & Treat PCP Updated and/or Approved 03/21/2022 03/21/2023 6 6 Encounter Details Date Type Department Care Team (Latest Contact Info) Description 03/21/2022 Transcribe Orders eDH Incoming Referrals [phone] Soheila Marmolejo APRN [address] [place], [place] [id number] Hypothyroidism, unspecified type Social History Tobacco Use Types Packs/Day Years Used Date Smoking Tobacco: Never Smokeless Tobacco: Never Alcohol Use Standard Drinks/Week Comments No 0 (1 standard drink = 0.6 oz pur e alcohol) Sex and Gender Information Value Date Recorded Sex Assigned at Not on file Gender Identity Not on file Sexual Orientation Not on file documented as of this encounter Plan of Treatment Scheduled Referrals Name Type Priority Associated Diagnoses Order Schedule Referral to Endocrinology Outpatient Referral Routine Hypothyroidism, unspecified type Ordered: 03/21/2022 documented as of this encounter Visit Diagnoses Diagnosis Hypothyroidism, unspecified type documented in this encounter Care Teams Residential Support Worker Relationship Specialty Start Date End Date Soheila Marmolejo, DIRECTOR OF HOUSING [address] [place] [address] PCP - General Family Medicine 03/05/22 documented as of this encounter
--- OUTSIDE RECORDS SUMMARY | 2024-02-29 16:47 | XMS_ITS | Clinical Summary ---
Author Organization [facility] Address [facility] [place] [address] Care Team Providers Care Wet Trimmer Name Role Phone Soheila Marmolejo APRN Primary Care Provider [phone] Allergies Active Allergy Reactions Criticality Noted Date Comments Narcotic Antagonist Itching,Rash Medium 12/26/2011 Penicillins Anaphylaxis High 12/26/2011 Medications Medication Sig Dispensed Refills Start Date End Date Status omeprazole (PRILOSEC) 40 mg Capsule, Delayed Release(E.C.) Take 40 mg by mouth daily. Active ascorbic acid (VITAMIN C ORAL) Take by mouth daily. Active VITAMIN B COMPLEX ORAL Take by mouth. LIQUID DAILY Active MAGNESIUM ORAL Take 250 mg by mouth daily. Active MILK THISTLE ORAL Take 175 mg by mouth daily. Active OMEGA-3 FATTY ACIDS-EPA ORAL Take by mouth daily. Active levothyroxine (SYNTHROID) 175 mcg Tablet Take 175 mcg by mouth daily. Brand name Synthroid only. Active biotin 300 mcg Tablet Take 10,000 mcg by mouth. Active selenium 50 mcg Tablet Take 200 mcg by mouth. Active zinc sulfate (ZINCATE) 220 (50) mg Capsule Take 220 mg by mouth daily. Active ergocalciferol, vitamin D2, (VITAMIN D ORAL) Take 400 Units by mouth. Active Active Problems Problem Noted Date Diagnosed Date Splenomegaly 12/31/2018 Thalassemia trait, beta 12/26/2011 Obesity (BMI 35.0-39.9 without comorbidity) 12/02 Hyperlipidemia 12/26/2011 Bipolar affective disorder 12/26/2011 PTSD (post-traumatic stress disorder) 12/26/2011 Family History Medical History Relation Comments Diabetes Father Thyroid Disease Father Blood Disorder Mother Heart Disease Mother Hypertension Mother Thyroid Disease Mother Macular Degeneration Neg Hx Retinal Detachment Neg Hx Relation Status Comments Father Alive Mother Alive Social History Tobacco Use Types Packs/Day Years Used Date Smoking Tobacco: Never Smokeless Tobacco: Never Alcohol Use Standard Drinks/Week Comments No 0 (1 standard drink = 0.6 oz pur e alcohol) Sex and Gender Information Value Date Recorded Sex Assigned at Not on file Gender Identity Not on file Sexual Orientation Not on file Last Filed Vital Signs Vital Sign Reading Time Taken Comments Blood Pressure 126/75 12/28/2018 1:10 PM EDT Pulse 91 12/28/2018 1:10 PM EDT Temperature 36.4 ??C (97.5 ??F) 12/16/2018 1:16 PM ED T Respiratory Rate 18 12/28/2018 1:10 PM EDT Oxygen Saturation 100% 12/28/2018 1:10 PM EDT Inhaled Oxygen Concentration - - Weight 111.7 kg (246 lb 3.2 oz) 12/28/2018 1:10 PM EDT Height 171.5 cm (5' 7.5) 12/28/2018 1:10 PM EDT Body Mass Index 37.99 12/28/2018 1:10 PM EDT Plan of Treatment Health Maintenance Due Date Last Done Comments CT Colonography 1970 Colonoscopy 1970 Colorectal Cancer Screening 1970 FIT DNA 1970 FIT 1970 Sigmoidoscopy (10 year) with FIT yearly 1970 Sigmoidoscopy 1970 HIV screen 1988 Hepatitis C Screening 1988 Hepatitis B vaccine (0-59 yrs) (1) 1989 Tdap adult 1989 Tetanus vaccine 1989 HPV test 2000 PAP Smear 2000 Breast Cancer Share Decision Needed 2010 Breast Cancer screening 2010 Zoster vaccine (1 of 2) 2020 Covid-19 Vaccine (1 - 2022-24 season) 2023 Influenza (Flu) vaccine (1 o f 1 - Influenza standard series) 04/03/2024 Diabetes Screening (HgbA1C or Glucose) Discontinued Procedures Procedure Name Priority Date/Time Associated Diagnosis Comments COMPREHENSIVE METABOLIC PANEL (NON-FASTING) Routine 12/16/2018 2:31 PM EDT Thalassemia trait, beta from Last 3 Months or Most Recently Relevant to Health Maintenance Results * (ABNORMAL) Comprehensive metabolic panel (non-fasting) (12/16/2018 2:31 PM EDT) Glucose Lvl 85 65 - 199 mg/dL [facility] Comment:Diabetes: >=200 mg/d L plus symptoms BUN 10 8 - 18 mg/dL [facility] Creatinine 0.81 0.70 - 1.20 mg/dL [facility] Sodium 141 135 - 145 mmol/L [facility] Potassium 4.2 3.5 - 5.0 mmol/L [facility] Comment: Please note: ??Patients with WBC >100,000 may have falsely elevated Potassium levels. ??For accurate Potassium quantification in these patients send serum separator tube (gold top) for subsequent determinations. ??Contact the Clinical Chemistry Laboratory if there are any questions. Chloride 103 98 - 107 mmol/L [facility] CO2 24 22 - 31 mmol/L [facility] Anion Gap 14 5 - 15 mmol/L [facility] Calcium 9.6 8.5 - 10.5 mg/dL [facility] Total Protein 8.7(H) 6.1 - 8.0 gm/dL [facility] Albumin 4.3 3.2 - 5.2 gm/dL [facility] AST 24 0 - 30 unit/L [facility] ALT 16 0 - 30 unit/L [facility] Alk Phos 121(H) 40 - 104 unit/L [facility] Total Bilirubin 0.7 0.2 - 1.3 mg/dL [facility] Estimated GFR 86 >=60 mL/min/1. 73 m?? [facility] Comment: The eGFR was calculated using the CKD-EPI equation. As with all creatinine based estimates of kidney function, eGFR values calculated with the CKD-EPI equation are not accurate in patients with acute kidney failure, extremes of body mass or the acutely ill. [email or web address] eGFR 100 >=60 mL/min/1. 73 m?? [facility] Comment: The eGFR was calculated using the CKD-EPI equation. As with all creatinine based estimates of kidney function, eGFR values calculated with the CKD-EPI equation are not accurate in patients with acute kidney failure, extremes of body mass or the acutely ill. [email or web address] Blood specimen (specimen) 12/16/2018 2:31 PM EDT 12/16/2018 2:43 PM EDT Narrative Resulting Agency Comment Spec In Lab Erick Allred MD CHEMISTRY ORDERABL ES [facility] [place] [address] from Last 3 Months or Most Recently Relevant to Health Maintenance Care Teams Wet Trimmer Relationship Specialty Start Date End Date Soheila Marmolejo, SENIOR TAX MANA[place] [place] [address] PCP - General Family Medicine 03/05/22
--- OUTSIDE RECORDS SUMMARY | 2024-02-29 16:48 | XMS_ITS | Encounter Summary ---
[place] [address] Care Team Providers Care Printed Circuit Board Panels Developer Name Role Phone Soheila Marmolejo APRN Primary Care Provider [phone] Reason for Referral * Allergy Testing (Routine) - Closed Specialty Diagnoses / Procedures Referred By Elisabet durant Referred To Contact Allergy Diagnoses Fibromyalgia Food allergy Soheila Marmolejo APRN [address] [place] [address] [facility] [address] [place] [address] Referral ID Status Reason Start Date Expiration Date V isits Requested Visits Authorized [id number] Closed Consult, Test & Treat PCP Updated and/or Approved 03/05/2022 03/05/2023 6 6 Encounter Details Date Type Department Care Team (Late st Contact Info) Description 03/05/2022 Transcribe Orders eDH Incoming Referrals [phone] Soheila Marmolejo APRN [address], [place] [id number] Fibromyalgia; Food allergy Social History Tobacco Use Types Packs/Day Years [...] Scheduled Referrals Name Type Priority Associated Diagnoses Orde r Schedule Referral to Allergy Outpatient Referral Routine Fibromyalgia Food allergy Ordered: 03/05/2022 documented as of this encounter Visit Diagnoses Diagnosis Fibromyalgia Mylagia and myositis, unspecified Food allergy Other adverse food reactions, not elsewhere classified documented in this encounter Care Teams Printed Circuit Board Panels Developer Relationship Specialty Start Date End Date Soheila Marmolejo, LEAD MILITARY ANALYST [facility] [place] [address] PCP - General Family Medicine 03/05/22 documented as of this encounter
--- OUTSIDE RECORDS SUMMARY | 2024-02-29 16:48 | XMS_ITS | Encounter Summary ---
Author Organization [facility] [place] [address] Care Team Providers Care Art Department Head Name Role Phone Unknown Primary Care Provider Unavailabl e Encounter Details Date Type Department Care Team (Late st Contact Info) Description 01/02/2012 2:00 PM EDT Office Visit Hematology [place] [address] Erick Allred MD [facility] [address] HEMATOLOGY [place] [address] Iron deficiency anemia (Primary Dx) Discharge Disposition: Home Social History Tobacco Use Types Packs/Day Years Used Date Smoking Tobacco: Never Smokeless Tobacco: Never Alcohol Use Standard Drinks/Week Comments No 0 (1 standard drink = 0.6 oz pur e alcohol) Comments Yes Sex and Gender Information Value Date Recorded Sex Assigned at Not on file Gender Identity Not on file Sexual Orientation Not on file documented as of this encounter Progress Notes * Erick Allred MD - 01/06/2012 3:05 PM EDT Hematology Consultation Note PCP: UNKNOWN Referral physician: CHIRAG Jerome [address] [place] [address] History of present illness: Tamy Torres is seen today in our hematology clinic at request of for evaluation of thalassemia and menorraghia. 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 She reports her maternal side is a member of the Marva family. A number of her family members have beta thalassemia including her mother and her sister. She reports a baseline hemoglobin of 11 to 14. She has no history of blood transfusions. She does not have a history of hemolysis that she can recall. Lately, she has been having very heavy and irregular menstrual bleeding. She has been having menorrhagia and has been seen by gynecologists. An ultrasound and biopsy is planned soon. She was referred for a question of iron deficiency. Her hemoglobin has dropped to the 7.9 - 8.8 range. I am awaiting the iron studies from her PCP since they did not accompany the initial paperwork. She was put on oral iron. However, she did not tolerate the oral preparations due to nausea and diarrhea. She reports trying to take in iron-rich foods but her anemia has made her feel quite fatigued. Of note, she also has an intentional weight loss of approximately 20 pounds due to better eating habits. Problem list: Patient Active Problem List Diagnoses Code ??? Thalassemia trait, beta 282.46V ??? Obesity (BMI 35.0-39.9 without comorbidity) 278.00BF ??? Hyperlipidemia 272.4S ??? Bipolar affective disorder 296.80D ??? PTSD (post-traumatic stress disorder) 309.81K Medications: Current outpatient prescriptions ordered prior to encounter Medication Sig Dispense Refill ??? escitalopram (LEXAPRO) 20 mg tablet Take 20 mg by mouth twice a week. ??? levothyroxine (SYNTHROID) 50 mcg tablet Take 50 mcg by mouth daily. Allergy: Pcn and Narcotic antagonist Family history: Family History Problem Relation Age of Onset ??? Blood disorder Mother ??? Heart Disease Mother ??? Hypertension Mother ??? Thyroid Disease Mother ??? Diabetes Father ??? Thyroid Disease Father Menstrual/[employer] CONSULTANT History Menstruation ever month to every other month, irregular Sometimes normal bleeding, sometimes passing of clots, sometimes heavy bleeding One living child. 4 pregnancies, with 1 miscarraige, and 2 abortions. Social history: reports that she has never smoked. She has never used smokeless tobacco. She reports that she does not drink alcohol or use illicit drugs. 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 Physical exam: LMP 11/07/2011 ? Unknown Physical exam: BP 150/76 Pulse 88 Temp(Src) 36.7 ??C (98.1 ??F) (Oral) Resp 20 Ht 170.4 cm (5' 7.1) Wt 111.857 kg (246 lb 9.6 oz) BMI 38.51 kg/m2 SpO2 99% LMP 11/07/2011 Gen: not in acute distress Neuro: awake and oriented 3x, non-focal HEENT:no oral lesions, no mucositis, no thrush Heart:S1S2, RRR, no m/r/g Lung: clear bilaterally Abdomen: + BS, soft, NT, ND Extretimities: no edema Skin: no rash, bleeding, ulcer Lymph nodes: no palpable cervical, supraclavicular, lymphadenopathy Laboratory Data: Results for [facility] ( ) as of 01/06/2012 15:09 Ref. Range 01/02/2012 14:35 01/05/2012 14:16 WBC Latest Range: 4.0-10.0 x10(3)/mcL 9.2 RBC Latest Range: 3.93-5.22 x10(6)/mcL 5.24 (H) Hemoglobin Latest Range: 11.2-15.7 gm/dL 9.9 (L) Hematocrit Latest Range: 34.0-45.0 % 32.0 (L) MCV Latest Range: 79.0-94.0 fL 61.1 (L) MCH Latest Range: 26.6-32.2 pg 18.9 (L) MCHC Latest Range: 32.0-36.5 gm/dL 30.9 (L) RDWSD Latest Range: 35.0-46.0 fL 38.9 RDWCV Latest Range: 10.9-14.4 % 17.7 (H) Platelets Latest Range: 145-370 x10(3)/mcL 368 MPV Latest Range: 9.0-12.0 fL 10.3 Plat Immature % Latest Range: 0.0-7.4 % 6.[address] % Latest Range: 0.5-2.4 % 1.[address] Abs Latest Range: 0.027-0.095 x10(6)/mcL 0.080 Immature Retic% Latest Range: 2.3-15.9 % 13.9 Reticulated Hgb Latest Range: 28.8-38.9 pg 17.2 (L) Neutr Abs (ANC) Latest Range: 1.50-6.30 x10(3)/mcL 5.55 Neutrophils % Latest Range: 34.0-71.0 % 60.0 Immature Gran % Latest Range: 0.00-0.66 % 0.20 Lymphocytes % Latest Range: 19.0-53.0 % 30.6 Monocytes % Latest Range: 4.0-13.0 % 5.8 Eosinophils % Latest Range: 0.0-7.0 % 2.6 Basophils % Latest Range: 0.0-2.0 % 0.8 Sruthi Gran Abs Latest Range: 0.00-0.05 x10(3)/mcL 0.02 Lymphocytes Abs Latest Range: 1.0-3.6 x10(3)/mcL 2.8 Monocyte Abs Latest Range: 0.2-1.0 x10(3)/mcL 0.5 Eosinophils Abs Latest Range: 0.0-0.5 x10(3)/mcL 0.2 Basophils Abs Latest Range: 0.0-0.2 x10(3)/mcL 0.1 Plat Estimate No range found Normal RBC Morphology No range found Abnormal Microcytes No range found gtr than 10 Hypochromia No range found Moderate Ovalocytes No range found 1-5 Total Bilirubin Latest Range: 0.2-1.3 mg/dL 0.3 Bili, Direct Latest Range: 0.0-0.3 mg/dL 0.1 Alk Phos Latest Range: 40-104 unit/L 102 AST Latest Range: 0-30 unit/L 24 ALT Latest Range: 0-30 unit/L 24 LDH Latest Range: 110-220 unit/L 152 Ferritin Latest Range: 15-150 ng/mL 21 Folate Lvl Latest Range: 7.4-35.0 ng/mL 8.0 Iron Latest Range: 30-150 mcg/dL 33 TIBC Latest Range: 250-450 mcg/dL 310 Iron Saturation Latest Range: 20-50 % 11 (L) Vitamin B-12 Latest Range: 207-974 pg/mL 322 Total Protein Latest Range: 6.4-8.3 gm/dL 7.8 Albumin Latest Range: 3.2-5.2 gm/dL 4.2 T4, total Latest Range: 5.1-10.8 mcg/dL 10.5 TSH Latest Range: 0.27-4.20 mcIU/mL 0.87 T3, Free-Newby Latest Range: 2.0 - 3.5 pg/mL 2.6 US TRANSVAGINAL NON OB No range found Rpt Assessment and Plan Tamy Olguin is a 41-year-old woman with beta-thalassemia and menorrhagia. Her iron studies were sent today including a ferritin. I am also working up other possible causes of anemia including folic acid deficiency and B12 deficiency. However, her clinical picture is that she is iron deficient and with symptoms. I feel she would benefit from IV preparation of iron. Depending on how low her iron stores are, we will replete her iron with Venofer weekly times four to five weeks. We would then check another CBC and iron studies in two months to see if she will need some maintenance treatments with Venofer. With ongoing menorrhagia, it would be good to see if interventions can be used to control her menorrhagia. She may benefit from a hysterectomy, but I will leave that to discussion with her cyber transport systems specialist and her primary care doctor. Should her menorrhagia stop, she may not need the IV iron any longer. She was given reading material on Venofer infusion. Side effects include allergic-type reactions. These are easily controlled with Benadryl and Tylenol. Given her inability to tolerate oral folic acid, one can consider also giving IV folate if she folic acid deficient. Thank you very much for the courtesy of this referral. ADDENDUM: Ferritin and iron stores low. Will replete with Venofer 300mg x 5 weekly doses and reassess need for maintenance iron. Erick Allred MD Permit Specialistlighting equipment operator Section of Hematology/Oncology [facility] Time spent : 60 mins Time of counselin mins documented in this encounter Plan of Treatment Not on file documented as of this encounter Results * (ABNORMAL) Iron and TIBC (04/23/2012 2:03 PM EDT) Iron 72 30 - 150 mcg/dL CERNER MILLENNIUM TIBC 249(L) 250 - 450 mcg/dL CERNER MILLENNIUM Iron Saturation 29 20 - 50 % CERN ER MILLENNIUM Blood specimen (specimen) 04/23/2012 2:03 PM EDT 04/23/2012 2:08 PM EDT Narrative Resulting Agency Comment Spec In Lab Erick Allred MD CHEMISTRY ORDERABL ES Performing Organization Address [facility]/ZIP Co de Phone Number CERNER MILLENNIUM * (ABNORMAL) Ferritin (04/23/2012 2:03 PM EDT) Pathologist [facility] Ferritin 290(H) 15 - 150 ng/mL CERNER MILLENNIUM Comment: Pediatric reference ranges not verified at [facility] [place], interpret with caution. Reference ranges for females greater than 50 years of age approach values for men, i.e., 30-400 ng/mL. Blood specimen (specimen) 04/23/2012 2:03 PM EDT 04/23/2012 2:08 PM EDT Narrative Resulting Agency Comment Spec In Lab Erick Allred MD CHEMISTRY ORDERABL ES Performing Organization Address [facility]/ZIP Co de Phone Number CERNER MILLENNIUM * (ABNORMAL) CBC (with Diff) (04/23/2012 2:03 PM EDT) WBC 11.2(H) 4.0 - 10.0 x10(3)/mcL CERNER MILLENNIUM RBC 5.46(H) 3.93 - 5.22 x10(6)/mcL CERNER MILLENNIUM Hemoglobin 11.1(L) 11.2 - 15.7 gm/dL CERNER MILLENNIUM Hematocrit 35.8 34.0 - 45.0 % CERNER MILLENNIUM MCV 65.6(L) 79.0 - 94.0 fL CERNER MILLENNIUM MCH 20.3(L) 26.6 - 32.2 pg DONALDO NOLANDENNIUM MCHC 31.0(L) 32.0 - 36.5 gm/dL CERJORGE L NOLANDENNIUM Platelets 309 145 - 370 x10(3)/mcL CERJORGE L NOLANDENNIUM RDWSD 38.4 35.0 - 46.0 fL DONALDO NOLANDENNIUM RDWCV 16.4(H) 10.9 - 14.4 % DONALDO NOLANDENNIUM MPV 10.2 9.0 - 12.0 fL DONALDO NOLANDENNIUM Blood specimen (specimen) 04/23/2012 2:03 PM EDT 04/23/2012 2:08 PM EDT Narrative Resulting Agency Comment Spec In Lab Erick Allred MD HEMATOLOGY ORDERAB LES DONALDO HUNTLEY documented in this encounter Visit Diagnoses Diagnosis Iron deficiency anemia- Primary Iron deficiency anemia, unspecified documented in this encounter Care Teams Art Department Head Relationship Specialty Start Date End Date Unknown None PCP - General 01/02/12 01/04/12 documented as of this encounter
--- OUTSIDE RECORDS SUMMARY | 2024-02-29 16:48 | XMS_ITS | Encounter Summary ---
Author Organization [facility] [place] [address] Care Team Providers Care Roll Inspector Name Role Phone Nicolas Dietz APRN Primary Care Provider [phone] Encounter Details Date Type Department Care Team (Latest Contact Info) Description 04/23/2012 1:51 PM EDT - 04/23/2012 11:59 PM EDT Hospital [place] [address] CLINIC, DR LÓPEZ Allred, MD Erick [facility] HEMATOLOGY [place] [address] Iron deficiency anemia Discharge Disposition: Home Social History Tobacco Use Types Packs/Day Years Used Date Smoking Tobacco: Never Smokeless Tobacco: Never Alcohol Use Standard Drinks/Week Comments No 0 (1 standard drink = 0.6 oz pur e alcohol) Sex and Gender Information Value Date Recorded Sex Assigned at Not on file Gender Identity Not on file Sexual Orientation Not on file documented as of this encounter Medications at Time of Discharge Medication Sig Dispensed Refills Start Date End Date escitalopram (LEXAPRO) 20 mg tablet Take 20 mg by mouth twice a week. 11/17/2018 levothyroxine (SYNTHROID) 50 mcg tablet Take 50 mcg by mouth daily. 11/17/2018 documented as of this encounter Plan of Treatment Not on file documented as of this encounter Procedures Procedure Name Priority Date/Time Associated Diagnosis Comments SCAN, PERIPHERAL BLOOD STAT 04/23/2012 2:03 PM EDT DIFFERENTIAL, AUTOMATED STAT 04/23/2012 2:03 PM EDT IRON AND TIBC STAT 04/23/2012 2:03 PM EDT Iron deficiency anemia CBC (WITH DIFF) STAT 04/23/2012 2:03 PM EDT Iron deficiency anemia FERRITIN STAT 04/23/2012 2:03 PM EDT Iron deficiency anemia documented in this encounter Results * (ABNORMAL) DIFFERENTIAL, AUTOMATED (04/23/2012 2:03 PM EDT) Neutrophils % 65.3 34.0 - 71.0 % CERNER MILLENNIUM Neutr Abs (ANC) 7.32(H) 1.50 - 6.30 x10(3)/mc L CERNER MILLENNIUM Lymphocytes % 24.9 19.0 - 53.0 % CERNER MILLENNIUM Lymphocytes Abs 2.8 1.0 - 3.6 x10(3)/mc L CERNER MILLENNIUM Monocytes % 5.7 4.0 - 13.0 % CERNER MILLENNIUM Monocyte Abs 0.6 0.2 - 1.0 x10(3)/mc L CERNER MILLENNIUM Eosinophils % 3.5 0.0 - 7.0 % CERNER MILLENNIUM Eosinophils Abs 0.4 0.0 - 0.5 x10(3)/mc L CERNER MILLENNIUM Basophils % 0.4 0.0 - 2.0 % CERNER MILLENNIUM Basophils Abs 0.0 0.0 - 0.2 x10(3)/mc L CERNER MILLENNIUM Immature Gran % 0.20 0.00 - 0.66 % CERNER MILLENNIUM Comment: Immature granulocytes(IG's)percentage and absolute count will include metamyelocytes, myelocytes, and promyelocytes. Blood smears from CBCs yielding IG's will be scanned manually for concordance. If this scan disagrees with the automated IG or if promyelocytes are noted, a manual differential will be performed. Sruthi Gran Abs 0.02 0.00 - 0.05 x10(3)/mc L CERNER MILLENNIUM Blood specimen (specimen) 04/23/2012 2:03 PM EDT 04/23/2012 2:08 PM EDT Erick Allred MD HEMATOLOGY ORDERAB LES Performing Organization Address [facility]/ZIP Co de Phone Number CERNER LUDINENNIUM * SCAN, PERIPHERAL BLOOD (04/23/2012 2:03 PM EDT) Pathologist [facility] Plat Estimate Normal CERNER MILLENNIUM RBC Morphology Abnormal CERNE R MILLENNIUM Microcytes gtr than 10 /HPF CERNER MILLENNIUM Ovalocytes 1-5 /HPF CERNER MILLENNIUM Blood specimen (specimen) 04/23/2012 2:03 PM EDT 04/23/2012 2:08 PM EDT Narrative Resulting Agency Comment Spec In Lab Erick Allred MD HEMATOLOGY ORDERAB LES Performing Organization Address [facility] Co de Phone Number CERNER MILLENNIUM * (ABNORMAL) Iron and TIBC (04/23/2012 2:03 PM EDT) Pathologist [facility] Iron 72 30 - 150 mcg/dL CERNER MILLENNIUM TIBC 249(L) 250 - 450 mcg/dL CERNER MILLENNIUM Iron Saturation 29 20 - 50 % CERN ER MILLENNIUM Blood specimen (specimen) 04/23/2012 2:03 PM EDT 04/23/2012 2:08 PM EDT Narrative Resulting Agency Comment Spec In Lab Erick Allred MD CHEMISTRY ORDERABL ES Performing Organization Address [facility] Co de Phone Number CERNER MILLENNIUM * (ABNORMAL) Ferritin (04/23/2012 2:03 PM EDT) Pathologist [facility] Ferritin 290(H) 15 - 150 ng/mL CERNER MILLENNIUM Comment: Pediatric reference ranges not verified at [facility], interpret with caution. Reference ranges for females greater than 50 years of age approach values for men, i.e., 30-400 ng/mL. Blood specimen (specimen) 04/23/2012 2:03 PM EDT 04/23/2012 2:08 PM EDT Narrative Resulting Agency Comment Spec In Lab Erick Allred MD CHEMISTRY ORDERABL ES Performing Organization Address City/[facility]/ZIP Co de Phone Number CERNER MILLENNIUM * (ABNORMAL) CBC (with Diff) (04/23/2012 2:03 PM EDT) WBC 11.2(H) 4.0 - 10.0 x10(3)/mcL CERNER MILLENNIUM RBC 5.46(H) 3.93 - 5.22 x10(6)/mcL CERNER MILLENNIUM Hemoglobin 11.1(L) 11.2 - 15.7 gm/dL CERNER MILLENNIUM Hematocrit 35.8 34.0 - 45.0 % CERNER MILLENNIUM MCV 65.6(L) 79.0 - 94.0 fL CERNER MILLENNIUM MCH 20.3(L) 26.6 - 32.2 pg CERNER MILLENNIUM MCHC 31.0(L) 32.0 - 36.5 gm/dL CERNER MILLENNIUM Platelets 309 145 - 370 x10(3)/mcL CERNER MILLENNIUM RDWSD 38.4 35.0 - 46.0 fL CERNER MILLENNIUM RDWCV 16.4(H) 10.9 - 14.4 % CERNER MILLENNIUM MPV 10.2 9.0 - 12.0 fL CERNER MILLENNIUM Blood specimen (specimen) 04/23/2012 2:03 PM EDT 04/23/2012 2:08 PM EDT Narrative Resulting Agency Comment Spec In Lab Erick Allred MD HEMATOLOGY ORDERAB LES CERJORGE L NOLANDENNIUM documented in this encounter Visit Diagnoses Diagnosis Iron deficiency anemia Iron deficiency anemia, unspecified documented in this encounter Care Teams Roll Inspector Relationship Specialty Start Date End Date Nicolas Dietz APRN PCP - General 01/09/12 08/30/18 documented as of this encounter
--- OUTSIDE RECORDS SUMMARY | 2024-02-29 16:48 | XMS_ITS | Encounter Summary ---
Author Organization [facility] Address [address] [place] [address] Care Team Providers Care Cable Television Line Technician Name Role Phone Nicolas Dietz APRN Primary Care Provider [phone] Encounter Details Date Type Department Care Team (Latest Contact Info) Description 09/08/2018 11:50 EST - 09/08/2018 23:59 EST Hospital Encounter [address] [address] Unknown, Provider, Discharge Disposition: Home or Self Care Social History Tobacco Use Types Packs/Day Years Used Date Smoking Tobacco: Never Assessed Sex and Gender Information Value Date Recorded Sex Assigned at Female 07/24/2022 9:07 EST Gender Identity Female 07/24/2022 9:07 EST Sexual Orientation Straight 07/24/2022 9: 07 EST documented as of this encounter Discharge Disposition Disposition Code Departure Means Destination Home or Self Jail documented in this encounter Plan of Treatment Not on file documented as of this encounter Visit Diagnoses Not on filedocumented in this encounter Care Teams Cable Television Line Technician Relationship Specialty Start Date End Date Nicolas Dietz APRN [address] [place] [id number] PCP - General 10/01/12 09/17/20 documented as of this encounter
--- OUTSIDE RECORDS SUMMARY | 2024-02-29 16:48 | XMS_ITS | Encounter Summary ---
Author Organization [facility] [place] [address] Care Team Providers Care Auto Overhauler Name Role Phone Dani Vidal DNP Primary Care Provider Encounter Details Date Type Department Care Team (Late st Contact Info) Description 09/07/2019 Telephone [place] [id number] Lisa Gonzalez Social History Tobacco Use Types Packs/Day Years Used Date Smoking Tobacco: Never Smokeless Tobacco: Never Alcohol Use Standard Drinks/Week Comments No 0 (1 standard drink = 0.6 oz pur e alcohol) Sex and Gender Information Value Date Recorded Sex Assigned at Not on file Gender Identity Not on file Sexual Orientation Not on file documented as of this encounter Miscellaneous Notes * Telephone Encounter - Lisa Gonzalez - 09/07/2019 12:39 PM EST Patient's phone is no longer in service. Sending letter in regards to referral we received. documented in this encounter Plan of Treatment Not on file documented as of this encounter Visit Diagnoses Not on filedocumented in this encounter Care Teams Auto Overhauler Relationship Specialty Start Date End Date Dani Vidal DNP PCP - General Family Medicine 08/31/18 03/04/22 documented as of this encounter
--- OUTSIDE RECORDS SUMMARY | 2024-02-29 16:48 | XMS_ITS | Encounter Summary ---
Author Organization [facility] [place] [address] Care Team Providers Care Solar Field Service Technician Name Role Phone MarcyDani ferguson STACY Primary Care Provider [phone] Reason for Visit * Reason Onset Date Comments Bumped Appointment 12/29/2018 Encounter Details Date Type Department Care Team (Late st Contact Info) Description 12/29/2018 Tele[place] [address] Mercedes Santos MD [facility] [place] [address] Bumped Appointment Social History Tobacco Use Types Packs/Day Years [...] encounter Miscellaneous Notes * Telephone Encounter - Susana Roldan - 12/29/2018 2:09 PM EDT Patient returned call, Patient is agreeable with time. * Telephone Encounter - Jazmín Bateman - 12/29/2018 12:41 PM EDT LM for pt to call and talk about 02/07 appt. If not happy with new time, reschedule NN2 spot documented in this encounter Plan of Treatment Not on file documented as of this encounter Visit Diagnoses Not on filedocumented in this encounter Care Teams Solar Field Service Technician Relationship Specialty Start Date End Date Dani Vidal DNP PCP - General Family Medicine 08/31/18 03/04/22 documented as of this encounter
--- OUTSIDE RECORDS SUMMARY | 2024-02-29 16:48 | XMS_ITS | Encounter Summary ---
Author Organization [facility] Address [address] [place] [address] Care Team Providers Care Regulatory Compliance Officer Name Role Phone Unavailable Primary Care Provider Heideabl e Encounter Details Date Type Department Care Team (Late st Contact Info) Description 01/01/2000 Results Only [facility] [address] [place] [address] Monserrat Rodriguez, [facility] [address] [place] [address] Social History Tobacco Use Types Packs/Day Years Used Date Smoking Tobacco: Never Assessed Sex and Gender Information Value Date Recorded Sex Assigned at Female 07/24/2022 9:07 EST Gender Identity Female 07/24/2022 9:07 EST Sexual Orientation Straight 07/24/2022 9: 07 EST documented as of this encounter Plan of Treatment Not on file documented as of this encounter Procedures Procedure Name Priority Date/Time Associated Diagnosis Comments CYTOPATHOLOGY Routine 01/01/2000 0:00 EDT documented in this encounter Results * CYTOPATHOLOGY (01/01/2000 0:00 EDT) Pathology Report: CYTOPATHOLOGY REPORT Reports generated via electronic interface contain original data; however they are lacking the format of the original report. Caution should be taken when reading/interpreti ng unformatted reports. Name: ? SAIMA THOMAS ? Accession #: ? [id number] : ? 1970 (Age: 29) ??F ?Collect Date: ? 01/01/2000 Location: ? [facility] ? Receive Date: ? 01/02/2000 Provider: ?MONSERRAT RODRIGUEZ SHIPPING ROOM SUPERVISOR Copy to: ? Specimen/Source: ?ThinPrep Pap Test, Cervix/Endocervix Last Menstrual Period: ? 12/17/99 ? SPECIMEN ADEQUACY ? Satisfactory for evaluation. GENERAL CATEGORIZATION ? Within Normal Limits ? Document reviewed and electronically signed by: ? Marva Caraballo SCT(ASCP) ? Report Date: ??01/03/2000 13:19 End of Report RADHA ESPINOSA 01/01/2000 01/02/2000 Monserrat Rodriguez SHIPPING ROOM SUPERVISOR PATHOLOGY ORDERABLES [facility] [address] [place] [address] documented in this encounter Visit Diagnoses Not on filedocumented in this encounter
--- OUTSIDE RECORDS SUMMARY | 2024-02-29 16:48 | XMS_ITS | Encounter Summary ---
Author [facility] [place] [address] Care Team Providers Care Mineral Engineer Name Role Phone Nicolas Dietz APRN Primary Care Provider [phone] Reason for Visit * Reason Onset Date Comments Medical Care Coordination 02/26/2012 [facility] [facility] labs at [facility] 4-6 weeks after last venofer infusion Encounter Details Date Type Department Care Team (Late st Contact Info) Description 02/26/2012 Telephone Hematology [place] [address] Marie Martin, RN Medical Care Coordination (Schedule labs at [facility] 4-6 weeks after last venofer infusion) Social History Tobacco Use Types Packs/Day Years [...] encounter Miscellaneous Notes * Telephone Encounter - Marie Martin, RN - 02/26/2012 9:41 AM EDT Received e-Smart Device Media message from Dr Allred on 02-02-12 to check a CBC, ferritin, iron studies in [facility] 4-6 weeks from 02-02-12 (may be completed week -30, 03-08 or 03-15-12). Left message for pt on personal cell phone voicemail with request to contact this RN to discuss POC and when she will have labsdrawn. Awaiting return call. Generated orders for CBC w/diff, ferritin, iron and TIBC and printed lab requisitions. RN to send to [facility] lab [phone] after making contact with pt. documented in this encounter Plan of Treatment Not on file documented as of this encounter Visit Diagnoses Diagnosis Thalassemia trait, beta- Primary Thalassemia minor documented in this encounter Care Teams Mineral Engineer Relationship Specialty Start Date End Date Nicolas Dietz, AIRCRAFT MAINTENANCE ENGINEER PCP - General 01/09/12 08/30/18 documented as of this encounter
--- OUTSIDE RECORDS SUMMARY | 2024-02-29 16:48 | XMS_ITS | Encounter Summary ---
Author Organization [facility] Address [address] [place] [address] Care Team Providers Care Cost Estimator Name Role Phone Nicolas Dietz APRN Primary Care Provider [phone] Encounter Details Date Type Department Care Team (Latest Contact Info) Description 09/08/2018 17:14 EST - 09/08/2018 23:59 EST Hospital Encounter [address] [address] Unknown, Provider, Discharge Disposition: Home or Self Care Social History Tobacco Use Types Packs/Day Years Used Date Smoking Tobacco: Never Assessed Sex and Gender Information Value Date Recorded Sex Assigned at Female 07/24/2022 9:07 EST Gender Identity Female 07/24/2022 9:07 EST Sexual Orientation Straight 07/24/2022 9: 07 EST documented as of this encounter Discharge Disposition Disposition Code Departure Means Destination Home or Self Prison documented in this encounter Plan of Treatment Not on file documented as of this encounter Visit Diagnoses Not on filedocumented in this encounter Care Teams Cost Estimator Relationship Specialty Start Date End Date Nicolas Dietz APRN [address] [place] [phone] PCP - General 10/01/12 09/17/20 documented as of this encounter
--- OUTSIDE RECORDS SUMMARY | 2024-02-29 16:48 | XMS_ITS | Clinical Summary ---
Author Organization [facility] Address [address] [place] [address] Care Team Providers Care General Handling Supervisor Name Role Phone Soheila Marmolejo NP Primary Care Provider [phone] Medications Medication Sig Dispensed Refills Start Date End Date Status metFORMIN (FORTAMET) 500 mg ER tablet Take 1,000 mg by mouth daily. Active levothyroxine (SYNTHROID) 175 mcg tablet Take 175 mcg by mouth daily. Active Active Problems Problem Noted Date Diagnosed Date Fibromyalgia 07/31/2022 Hypothyroidism, postablative 07/31/2022 Hyperlipidemia 12/26/2011 Social History Tobacco Use Types Packs/Day Years Used Date Smoking Tobacco: Never Assessed Interpersonal Safety Answer Date Record ed Physically Hurt Never 03/04/2020 Verbally Threaten Not on file 03/04/2020 Sex and Gender Information Value Date Recorded Sex Assigned at Female 07/24/2022 9:07 EST Gender Identity Female 07/24/2022 9:07 EST Sexual Orientation Straight 07/24/2022 9: 07 EST Plan of Treatment Health Maintenance Due Date Last Done Comments Hepatitis C Screen 1970 Social Determinants Of Health (SDOH) 1970 Lipid Profile Screening (Cholesterol) 1973 Depression Screening 1982 HIV Screening 1986 Advance Directive 1988 Preventive Care Visit 1988 Hepatitis B Vaccine (1 of 3 - 19+ 3-dose series) 1989 Pertussis (Adult) Immunization 1989 Tetanus (Adult) Immunization 1989 HPV/Cotest (Cervical Cancer Screening) 2000 Breast Cancer Screening 2010 Cologuard (Colon Cancer Screening) 2015 Colonoscopy (Colon Cancer Screening) 2015 Colorectal Cancer Screening 2015 FIT Test (Colon Cancer Screening) 2015 Sigmoidoscopy (Colon Cancer Screening) 2015 Shingles Immunization (1 of 2) 2020 Cervical Cancer Screening 01/25/2022 Pap Smear (Cervical Cancer Screening) 01/25/2022, 10/16/2011 COVID-19 Vaccine ( season) 2023 Influenza Immunization (Adult) (#1) 2024 Procedures Procedure Name Priority Date/Time Associated Diagnosis Comments PAP TEST- RESULT ONLY Routine 01/25/2019 0:00 EDT from Last 3 Months or Most Recently Relevant to Health Maintenance Results * PAP TEST- RESULT ONLY (01/25/2019 0:00 EDT) Pathology Report: CYTOPATHOLOGY REPORT Reports generated via electronic interface contain original data; however they are lacking the format of the original report. Caution should be taken when reading/interpreti ng unformatted reports. Name: ? SAIMA THOMAS ? Accession #: ? [id number] ? : ? 1970 (Age: 48) ??F ?Collect Date: ? 01/25/2019 ? Location: ? [facility] ? Receive Date: ? 01/26/2019 ? Provider: HELEN VIDAL DNP Copy to: ? Final Report SPECIMEN ADEQUACY ? Satisfactory for Evaluation - transformation zone component present GENERAL CATEGORIZATION ? Negative for Intraepithelial Lesion or Malignancy ?? Other: Additional clinical information: Z00.00 Z12.4 Z11.51 Specimen/Source: ??Pap Test, Cervix, ThinPrep Imaging System with manual evaluation Document reviewed and electronically signed by: ? Zully Beck, CT(ASCP) ? Report ??Date: 01/28/2019 14:49 HPV with Pap Test ? Date Ordered: ? 01/28/2019 ? Status: ?? Signed Out ?Date Complete: ? 01/31/2019 ? By: ??System Interface ? Date Reported: ? 01/31/2019 ? Interpretation RESULT: Negative for HPV. No E6 or E7 mRNA is detected from HPV types 16,18,31,33,35, 39,45,51,52,56,58, 59,66, and 68 by picker tender helper mediated amplification. Comments Document reviewed and electronically signed by: ? System Interface ? Report date: 01/31/2019 By the signature above, the attending physician certifies that he/she has personally conducted a gross and/or microscopic examination of the described specimens and rendered or confirmed the above diagnosis. End of Report [facility] 01/25/2019 01/26/2019 [facility] PATHOLOGY ORDERAB LES [facility] [address] [place] [address] from Last 3 Months or Most Recently Relevant to Health Maintenance Care Teams General Handling Supervisor Relationship Specialty Start Date End Date Soheila Marmolejo NP [address] [place] [address] PCP - General Family Medicine - Primary Care 07/21/22
--- OUTSIDE RECORDS SUMMARY | 2024-02-29 16:48 | XMS_ITS | Encounter Summary ---
Author Organization [facility] [place] [address] Care Team Providers Care Cane Burner Name Role Phone Nicolas Michele APRN Primary Care Provider [phone] Reason for Visit * Reason Comments Follow-up Encounter Details Date Type Department Care Team (Late st Contact Info) Description 04/23/2012 3:00 PM EDT Follow-Up Hematology [place] [id number] Erick Allred MD [facility] [place] [address] Iron deficiency anemia (Primary Dx) Discharge Disposition: [...] on file documented as of this encounter Last Filed Vital Signs Vital Sign Reading Time Taken Comments Blood Pressure 118/66 04/23/2012 2:58 PM EDT Pulse 74 04/23/2012 2:58 PM EDT Temperature 37 ??C (98.6 ??F) 04/23/2012 2:58 PM EDT Respiratory Rate 18 04/23/2012 2:58 PM EDT Oxygen Saturation 99% 04/23/2012 2:58 PM EDT Inhaled Oxygen Concentration - - Weight 115.4 kg (254 lb 6.6 oz) 04/23/2012 2:58 PM EDT Height 170.4 cm (5' 7.09) 04/23/2012 2:58 PM ED T Body Mass Index 39.74 04/23/2012 2:58 PM EDT documented in this encounter Progress Notes * Erick Allred MD - 04/23/2012 3:36 PM EDT Hematology Consultation Note PCP: NICOLAS MICHELE APRN Referral physician: Self No address on file. History of present illness: Tamy Torres is seen today in our hematology clinic at request of for evaluation of thalassemia and menorraghia. Tamy Olguin (aka Sanam Darby, her former name) has a history of [...] 20 pounds due to better eating habits. 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 Reports feeling exhausted. Got a good boost from her IV iron transfusions, symptom [place]. Feels like effect of iron is wearing off. Problem list: Patient Active Problem List Diagnoses [...] ??? Diabetes Father ??? Thyroid Disease Father Menstrual/EMERGENCY DEPARTMENT COORDINATOR History Menstruation ever month to every other month, irregular Sometimes normal bleeding, sometimes passing of clots, sometimes heavy bleeding One living child. 4 pregnancies, with 1 miscarraige, and 2 abortions. Social history: reports that she has never smoked. She has never used smokeless tobacco. She reports that she does not drink alcohol or use illicit drugs. 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 Physical exam: BP 118/66 Pulse 74 Temp(Src) 37 ??C (98.6 ??F) (Oral) Resp 18 Ht 170.4 cm (5' 7.09) Wt 115.4 kg (254 lb 6.6 oz) BMI 39.74 kg/m2 SpO2 99% Physical exam: No exam today Laboratory Data: Recent Results (from the past 24 hour(s)) CBC (WITH DIFF) Component Value Range ??? WBC 11.2 (*) 4.0 - 10.0 (x10(3)/mcL) ??? RBC 5.46 (*) 3.93 - 5.22 (x10(6)/mcL) ??? Hemoglobin 11.1 (*) 11.2 - 15.7 (gm/dL) ??? Hematocrit 35.8 34.0 - 45.0 (%) ??? MCV 65.6 (*) 79.0 - 94.0 (fL) ??? MCH 20.3 (*) 26.6 - 32.2 (pg) ??? MCHC 31.0 (*) 32.0 - 36.5 (gm/dL) ??? Platelets 309 145 - 370 (x10(3)/mcL) ??? RDWSD 38.4 35.0 - 46.0 (fL) ??? RDWCV 16.4 (*) 10.9 - 14.4 (%) ??? MPV 10.2 9.0 - 12.0 (fL) FERRITIN Component Value Range ??? Ferritin 290 (*) 15 - 150 (ng/mL) IRON AND TIBC Component Value Range ??? Iron 72 30 - 150 (mcg/dL) ??? TIBC 249 (*) 250 - 450 (mcg/dL) ??? Iron Saturation 29 20 - 50 (%) SCAN, PERIPHERAL BLOOD Component Value Range ??? Plat Estimate Normal ??? RBC Morphology Abnormal ??? Microcytes gtr than 10 (/HPF) ??? Ovalocytes 1-5 (/HPF) DIFFERENTIAL, AUTOMATED Component Value Range ??? Neutrophils % 65.3 34.0 - 71.0 (%) ??? Neutr Abs (ANC) 7.32 (*) 1.50 - 6.30 (x10(3)/mcL) ??? Lymphocytes % 24.9 19.0 - 53.0 (%) ??? Lymphocytes Abs 2.8 1.0 - 3.6 (x10(3)/mcL) ??? Monocytes % 5.7 4.0 - 13.0 (%) ??? Monocyte Abs 0.6 0.2 - 1.0 (x10(3)/mcL) ??? Eosinophils % 3.5 0.0 - 7.0 (%) ??? Eosinophils Abs 0.4 0.0 - 0.5 (x10(3)/mcL) ??? Basophils % 0.4 0.0 - 2.0 (%) ??? Basophils Abs 0.0 0.0 - 0.2 (x10(3)/mcL) ??? Immature Gran % 0.20 0.00 - 0.66 (%) ??? 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 Coin Collector eval she tells me did not reveal fibroids. She feels well today, ferritin 290, and Hb 11. Menstrual cycle now ~2 months. I suggested getting her Hb checked 2-3 months with PCP. If Ferritin <50 or Hb <10, I would recommend IV iron as before Venofer 300mg x 4. If symptomatic, PCP can call me to discuss timing of next IV iron infusions. She asked about B-thal, genetic counseling for daughter and her own tinajero with weight. We discussed some strategies for weight loss. Erick Allred MD Rayon Conerstudent ministries director Section of Hematology/Oncology [facility] Time with pt 25 min Time counsleing 20 min documented in this encounter Plan of Treatment Not on file documented as of this encounter Visit Diagnoses Diagnosis Iron deficiency anemia- Primary Iron deficiency anemia, unspecified documented in this encounter Care Teams Cane Burner Relationship Specialty Start Date End Date Nicolas Michele APRN PCP - General 01/09/12 08/30/18 documented as of this encounter
--- OUTSIDE RECORDS SUMMARY | 2024-02-29 16:48 | XMS_ITS | Encounter Summary ---
Author Organization [facility] [place] [address] Care Team Providers Care Parts Driver Name Role Phone Unknown Primary Care Provider Unavailabl e Reason for Visit * Reason Comments Vaginal Bleeding Encounter Details Date Type Department Care Team (Late st Contact Info) Description 01/05/2012 1:30 PM EDT Office Visit Obstetrics [place] [address] Kimmy David MD [facility] DR OBSTETRICS & [place] [address] Vagina bleeding (Primary Dx) Discharge Disposition: Home Social History [...] as of this encounter Progress Notes * Kimmy David MD - 01/05/2012 2:12 PM EDT Ultrasound-Normal uterus, 3.5 cm unilocular follicle consistent with a functional cyst. Patient reports normal menses last month. She declined endometrial bx. She is planning iron infusions with hematology oncology. She requested a hysterectomy and declined progestin IUD. Given her anemia may respon d to iron infusions to some extent, and given her recent normal menses, and the fact she had not trial medical management I advised against a hysterectomy at this point. I counseled her on the option of an endometrial ablation and asked her to call for a recurrence of abnormal bleeding for an endometrial bx to evaluated for endometritis or abnormal growth of endometrium. documented in this encounter Plan of Treatment Not on file documented as of this encounter Visit Diagnoses Diagnosis Vagina bleeding- Primary Other specified noninflammatory disorder of vagina documented in this encounter Care Teams Parts Driver Relationship Specialty Start Date End Date Unknown None PCP - General 01/05/12 01/08/12 documented as of this encounter
--- OUTSIDE RECORDS SUMMARY | 2024-02-29 16:48 | XMS_ITS | Encounter Summary ---
Author Organization [facility] [place] [address] Care Team Providers Care Nail Technician Name Role Phone Dani Vidal DNP Primary Care Provider Encounter Details Date Type Department Care Team (Latest Contact Info) Description 12/16/2018 2:23 PM EDT - 12/16/2018 11:59 PM EDT Hospital Encounter Hematology and Oncology at [facility] [place] [address] Thalassemia trait, beta Discharge Disposition: Home Social History Tobacco Use [...] Sig Dispensed Refills Start Date End Date biotin 300 mcg Tablet Take 10,000 mcg by mouth. selenium 50 mcg Tablet Take 200 mcg by mouth. zinc sulfate (ZINCATE) 220 (50) mg Capsule Take 220 mg by mouth daily. omeprazole (PRILOSEC) 40 mg Capsule, Delayed Release(E.C.) Take 40 mg by mouth daily. ascorbic acid (VITAMIN C ORAL) Take by mouth daily. VITAMIN B COMPLEX ORAL Take by mouth. LIQUID DAILY MAGNESIUM ORAL Take 250 mg by mouth daily. MILK THISTLE ORAL Take 175 mg by mouth daily. OMEGA-3 FATTY ACIDS-EPA ORAL Take by mouth daily. levothyroxine (SYNTHROID) 175 mcg Tablet Take 175 mcg by mouth daily. Brand name Synthroid only. documented as of this encounter Plan of Treatment Not on file documented as of this encounter Procedures Procedure Name Priority Date/Time Associated Diagnosis Comments HEMOGRAM Routine 12/16/2018 2:31 PM EDT Thalassemia trait, beta HEMOGLOBIN ELECTROPHORESIS REPORT Routine 12/16/2018 2:31 PM EDT HEMOGLOBIN ELECTROPHORESIS Routine 12/16/2018 2:31 PM EDT Thalassemia trait, beta SCAN, PERIPHERAL BLOOD Routine 9 2:31 PM EDT HEMOGRAM Routine 12/16/2018 2:31 PM EDT Thalassemia trait, beta DIFFERENTIAL, AUTOMATED Routine 12/17/19 19 2:31 PM EDT Thalassemia trait, beta CBC (WITH DIFF) Routine 12/16/2018 2:31 PM EDT Thalassemia trait, beta HEMOGLOBIN ELECTROPHORESIS Routine 12/16/2018 2:31 PM EDT Thalassemia trait, beta COMPREHENSIVE METABOLIC PANEL (NON-FASTING) Routine 12/16/2018 2:31 PM EDT Thalassemia trait, beta documented in this encounter Results * Hemoglobin Electrophoresis Report (12/16/2018 2:31 PM EDT) Hemoglobin Electrophoresis Report [id number] ? Location: The signing pathologist has (i) examined the relevant preparation(s) for the specimen(s) and (ii) rendered or confirmed the diagnosis(es). . ?Hemoglobin Electrophoresis DIAGNOSIS Microcytic, hypochromic anemia with elevated hemoglobin A2, consistent with beta- thalassemia trait (see comment). RDW is usually not elevated in beta-thalassemia trait, and may suggest possible iron deficiency. Please correlate with clinical history. Electronically signed by: ??Hieu Romo MD Verified: ??12/21/2018 ?Hematopathologi st Performed at: ??-[facility] Dept. of Pathology, [place], [place] DISCUSSION Reticulated Hemoglobin ( RET-HE test offered under reticulocyte count) is a more sensitive indicator of current iron stores available for hemoglobin synthesis and can be ordered if clinically indicated . ADDITIONAL STUDIES WBC 12.6K/ul; RBC 6.4x10 ??6/ul; Hgb 12.6; MCV 67; RDW 17.4; PLT 416K/ul Morphology: microcytosis, slight hypochromia. Hemoglobin C apillary ??Electrophoresis Study at 9.4: Hemoglobin A2 Quantification: 5 % (Normal 2.1% - 3.2%) Hemoglobin A 95% Hemoglobin variant 0% CLINICAL INFORMATION Microcytosis [facility] 12/16/2018 2:31 PM EDT Tim Rodríguez MD PATHOLOGY/CYTOLOGY O RDERABLES [facility] [place] [address] * Scan, Peripheral Blood (12/16/2018 2:31 PM EDT) Plat Estimate Increased [facility] RBC Morphology Abnormal [facility] Microcytes 1-5 /HPF [facility] Hypochromia Slight [facility] Giant Platelets Less than 1 /HPF MA RY [facility]3] [facility]ATORY Blood specimen (specimen) 12/16/2018 2:31 PM EDT 12/16/2018 2:43 PM EDT Narrative Resulting Agency Comment Spec In Lab Tim Rodríguez MD HEMATOLOGY ORDERABLE S [facility] [place] [address] * (ABNORMAL) Differential, Automated (12/16/2018 2:31 PM EDT) Neutrophils % 61.3 % [facility] Neutr Abs (ANC) 7.77(H) 1.70 - 6.10 x10(3)/mc L [facility] Lymphocytes % 29.8 % [facility] Lymphocytes Abs 3.8(H) 0.9 - 3.2 x10(3)/[facility] Monocytes % 6.0 % [facility] Monocyte Abs 0.8 0.3 - 0.9 x10(3)/[facility] Eosinophils % 1.8 % [facility] Eosinophils Abs 0.2 0.0 - 0.4 x10(3)/[facility] Basophils % 0.7 % [facility] Basophils Abs 0.1 0.0 - 0.1 x10(3)/[facility] Immature Gran % 0.40 % [facility] Comment: Immature granulocytes(IG's)percentage and absolute count will include metamyelocytes, myelocytes, and promyelocytes. Blood smears from CBCs yielding IG's will be scanned manually for concordance. If this scan disagrees with the automated IG or if promyelocytes are noted, a manual differential will be performed. Sruthi Gran Abs 0.05(H) 0.00 - 0.04 x10(3)/[facility] Blood specimen (specimen) 12/16/2018 2:31 PM EDT 12/16/2018 2:43 PM EDT Narrative Resulting Agency Comment Spec In Lab Tim Rodríguez MD HEMATOLOGY ORDERABLE S [facility] [place] [address] * (ABNORMAL) Hemogram (12/16/2018 2:31 PM EDT) WBC 12.7(H) 4.0 - 9.5 x10(3)/[facility] RBC 6.40(H) 4.00 - 5.21 x10(6)/[facility] Hemoglobin 12.6 11.7 - 15.5 gm/dL [facility] Hematocrit 42.9 35.7 - 45.8 % [facility] MCV 67.0(L) 82.6 - 94.4 [facility] MCH 19.7(L) 27.1 - 32.0 pg [facility] MCHC 29.4(L) 31.7 - 35.0 gm/dL [facility] Platelets 416(H) 145 - 357 x10(3)/[facility] RDWSD 37.8 37.0 - 46.0 [facility] RDWCV 17.4(H) 11.5 - 14.1 % [facility] MPV 11.3 7.6 - 12.9 [facility] nRBC % Auto 0.0 % [facility] nRBC Abs Auto 0.000 0.000 - 0.000 x10(3)/[facility] Blood specimen (specimen) 12/16/2018 2:31 PM EDT 12/16/2018 2:43 PM EDT Narrative Resulting Agency Comment Spec In Lab Tim Rodríguez MD HEMATOLOGY ORDERABLE S [facility] [place] [address] * (ABNORMAL) Hemogram (12/16/2018 2:31 PM EDT) WBC 12.7(H) 4.0 - 9.5 x10(3)/[facility] RBC 6.40(H) 4.00 - 5.21 x10(6)/[facility] Hemoglobin 12.6 11.7 - 15.5 gm/dL [facility] Hematocrit 42.9 35.7 - 45.8 % [facility] MCV 67.0(L) 82.6 - 94.4 [facility] MCH 19.7(L) 27.1 - 32.0 pg [facility] MCHC 29.4(L) 31.7 - 35.0 gm/dL [facility] Platelets 416(H) 145 - 357 x10(3)/[facility] RDWSD 37.8 37.0 - 46.0 [facility] RDWCV 17.4(H) 11.5 - 14.1 % [facility] MPV 11.3 7.6 - 12.9 fL [facility] nRBC % Auto 0.0 % [facility] nRBC Abs Auto 0.000 0.000 - 0.000 x10(3)/[facility] Blood specimen (specimen) 12/16/2018 2:31 PM EDT 12/16/2018 2:43 PM EDT Narrative Resulting Agency Comment Spec In Lab Tim Rodríguez MD HEMATOLOGY ORDERABLE S Performing Organization Address [facility] Co de Phone Number [facility] [place] [address] * Hemoglobin Electrophoresis (12/16/2018 2:31 PM EDT) Hgb Electrophoresis See Comment [facility] Comment: Testing completed, Hemoglobin Electrophoresis Report [id number] ??to follow under Hematology Reports. Hgb A % 95.0 % [facility] Hgb A2 % 5.0 [facility] Blood specimen (specimen) 12/16/2018 2:31 PM EDT 12/16/2018 2:43 PM EDT Narrative Resulting Agency Comment Spec In Lab Tim Rodríguez MD HEMATOLOGY ORDERABLE S Performing Organization Address City/[facility] Co de Phone Number [facility] [place] [address] * (ABNORMAL) Comprehensive metabolic panel (non-fasting) (12/16/2018 2:31 PM EDT) Glucose Lvl 85 65 - 199 mg/dL [facility] Comment:Diabetes: >=200 mg/d L plus symptoms BUN 10 8 - 18 mg/dL [facility] Creatinine 0.81 0.70 - 1.20 mg/dL [facility] Sodium 141 135 - 145 mmol/L [facility] Potassium 4.2 3.5 - 5.0 mmol/L [facility] Comment: Please note: ??Patients with WBC >100,000 may have falsely elevated Potassium levels. ??For accurate Potassium quantification in these patients send serum separator tube (gold top) for subsequent determinations. ??Contact the Clinical Chemistry Laboratory if there are any questions. Chloride 103 98 - 107 mmol/L [facility] CO2 24 22 - 31 mmol/L [facility] Anion Gap 14 5 - 15 mmol/L [facility] Calcium 9.6 8.5 - 10.5 mg/dL [facility] Total Protein 8.7(H) 6.1 - 8.0 gm/dL [facility] Albumin 4.3 3.2 - 5.2 gm/dL [facility] AST 24 0 - 30 unit/L [facility] ALT 16 0 - 30 unit/L [facility] Alk Phos 121(H) 40 - 104 unit/L [facility] Total Bilirubin 0.7 0.2 - 1.3 mg/dL [facility] Estimated GFR 86 >=60 mL/min/1. 73 m?? [facility] Comment: The eGFR was calculated using the CKD-EPI equation. As with all creatinine based estimates of kidney function, eGFR values calculated with the CKD-EPI equation are not accurate in patients with acute kidney failure, extremes of body mass or the acutely ill. [email or web address]://[email or web address] eGFR 100 >=60 mL/min/1. 73 m?? [facility] Comment: The eGFR was calculated using the CKD-EPI equation. As with all creatinine based estimates of kidney function, eGFR values calculated with the CKD-EPI equation are not accurate in patients with acute kidney failure, extremes of body mass or the acutely ill. [email or web address] Blood specimen (specimen) 12/16/2018 2:31 PM EDT 12/16/2018 2:43 PM EDT Narrative Resulting Agency Comment Spec In Lab Erick Allred MD CHEMISTRY ORDERABL ES [facility] [place] [address] documented in this encounter Visit Diagnoses Diagnosis Thalassemia trait, beta Thalassemia minor documented in this encounter Care Teams Nail Technician Relationship Specialty Start Date End Date Dani Vidal DNP PCP - General Family Medicine 08/31/18 03/04/22 documented as of this encounter
--- OUTSIDE RECORDS SUMMARY | 2024-02-29 16:48 | XMS_ITS | Encounter Summary ---
Author Organization [facility] [place] [address] Care Team Providers Care Automobile Assembly Supervisor Name Role Phone Dani Vidal DNP Primary Care Provider Reason for Referral * Consultation (Routine) - Closed Specialty Diagnoses / Procedures Referred By Elisabet durant Referred To Contact Ophthalmology Diagnoses Graves disease Jes Moreno MD [facility] [place] [address] Mercedes Santos MD [facility] [place] [address] Referral ID Status Reason Start Date Expiration Date V isits Requested Visits Authorized [id number] Closed Consult, Test & Treat 11/17/2018 11/17/2019 1 1 Reason for Visit * Consultation (Routine) - Specialty Diagnoses / Procedures Referred By Contjennifer durant Referred To Contact Endocrinology Diagnoses HYPOTHYROIDISM Dani Vidal DNP [address] [place] [address] [facility] [place]ocrinology [address] [place] [phone] Referral ID Status Reason Start Date Expiration Date V isits Requested Visits Authorized [id number] Consult, Test & Treat [facility] 08/31/2018 08/31/2019 6 6 Encounter Details Date Type Department Care Team (Latest Contact Info) Description 11/17/2018 10:00 AM EDT Office Visit [place] [address] Jes Moreno MD [facility] DR [place]OCRIN[place] [address] Graves disease; 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; Postablative hypothyroidism Social History Tobacco Use Types Packs/Day Years [...] Sign Reading Time Taken Comments Blood Pressure 115/74 11/17/2018 9:54 AM EDT Pulse 79 11/17/2018 9:54 AM EDT Temperature - - Respiratory Rate - - Oxygen Saturation - - Inhaled Oxygen Concentration - - Weight 112 kg (247 lb) 11/17/2018 9:54 AM EDT Height 171.5 cm (5' 7.5) 11/17/2018 9:54 AM EDT Body Mass Index 38.11 11/17/2018 9:54 AM EDT documented in this encounter Progress Notes * Jes Moreno MD - 11/17/2018 10:00 AM EDT Endocrinology New Patient Consultation RFC: Referred to Endocrinology by Dani Vidal for further evaluation of difficulty reaching anadequate dose of thyroid hormone supplementation. HISTORY OF PRESENT ILLNESS: Ms. Tamy Torres is a 48 y.o. 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 She recently re-established medical care in the area in Jul 2018 after moving back from [place]. TSH check in July 2018 showed an elevated TSH of 8.04 with a high-normal free T4 of 1.42. Her TSH in March 2018 in [place] was even higher, at 14. After the July 2018 check, her LT4 dose was increased from 125 mcg daily to 175 mcg daily. At follow-up with her PCP, she requested a referral to Endocrinology to troubleshoot why she has had such difficulty reaching euthyroidism even though she takes her levothyroxine religiously while fasting. Of note, she also takes pantoprazole - she has been having abdominal pain and is seeing gastroenterology about this. She reports today that she had her gallbladder out in September 2018. She describes that she started out hypothyroid dx in 2011. She has several family members with Chey's. In 2012, she developed hyperthyroidism and was dx with Graves' disease. Thyroid blocking medication failed to control her hyperthyroidism and she went on to I-131 ablation in 2014. Since thattime she has She requests that a full thyroid panel be checked because she has had experience that her TSH can read falsely low. She does not take biotin. Currently taking 175 mcg daily of brand name Synthroid since Jul 2018. TSH at that time was 8.0 She was switched to Synthroid because generic levothyroxine cause a lot more fluctuation in her TFTs. When her dose was increased to 200 mcg daily recently, she says she felt sick after a day of takingit and switched back to the 175 mcg daily. She says she's been having some eye issues - her vision has fluctuated, sometimes needs bifocals and sometimes doesn't need them. Night vision impaired and blurry vision after a long day at work. Occasionally diplopia. Sometimes walking and feels like her vision is cock-eyed and feels like she isgoing diagonally; when this happened recently she felt like she couldn't focus on anything. Sometimes gets headaches from her vision issues, but no eye pain. She notes she has a retinal tear in her Leye. No menses since endometrial ablation in 2011 for extremely heavy menses. She needed an IV iron infusion because her hemoglobin got down to the 5-range. She also notes that she's been told she is going through menopause and that her tubes are tied. She has been told that her liver is working well but starting to show signs of cirrhosis. She is taking omega 3 and milk thistle to support her liver. PAST MEDICAL HISTORY: Patient Active Problem List Diagnosis Date Noted ??? Thalassemia trait, beta 12/26/2011 ??? Obesity (BMI 35.0-39.9 without comorbidity) 12/26/2011 ??? Hyperlipidemia 12/26/2011 ??? Bipolar affective disorder 12/26/2011 ??? PTSD (post-traumatic stress disorder) 12/26/2011 MEDICATIONS: Medications 11/17/18 0957 Medication Sig Taking? omeprazole (PRILOSEC) 40 mg Capsule, Delayed Release(E.C.) Take 40 mg by mouth daily. Yes ascorbic acid (VITAMIN C ORAL) Take by mouth daily. Yes VITAMIN B COMPLEX ORAL Take by mouth. LIQUID DAILY Yes MAGNESIUM ORAL Take by mouth daily. Yes MILK THISTLE ORAL Take by mouth daily. Yes OMEGA-3 FATTY ACIDS-EPA ORAL Take by mouth daily. Yes levothyroxine (SYNTHROID) 175 mcg Tablet Take 175 mcg by mouth daily. Brand name Synthroid only. Yes ALLERGIES: Allergies Allergen Reactions ??? Pcn [Penicillins] Anaphylaxis ??? Narcotic Antagonist Itching and Rash SOCIAL HISTORY: Social History Tobacco Use Smoking Status Never Smoker Smokeless Tobacco Never Used FAMILY HISTORY: Vitals Office Visit from 11/17/2018 in Endocrinology at [place] Weight 112 kg (247 lb) Height 171.5 cm (5' 7.5) BSA (Calculated - sq m) 2.31 sq meters BMI (Calculated) 38.11 Heart Rate 79 BP 115/74 Gen: NAD, AAOx3, speaking full sentences, calm very pleasant demeanor Skin: warm and dry, slight acanthosis nigricans at nape of neck Eyes: PERRL, EOMI, anicteric sclerae without injection, no proptosis or lid lag ENT: moist oral mucosa Neck: no thyromegaly, no thyroid nodules, no lymphadenopathy Pulm: CTAB, no stridor Cardiac: reg s1s2, no m/r/g MSK: 5/5 strength in all muscle groups of the upper and lower extremities Neuro: 2+ patellar DTRs, no clonus, no delay of the relaxation phase, no tremor. ASSESSMENT: 48 yo F with hx Chey's hypothyroidism and Graves' disease s/p I-131 ablation in 2014, now with post-ablative hypothyroidism, having difficulty achieving euthyroidism with Synthroid supplementation. Her set of TFTs in July 2018 showed a TSH of 8.0 indicating underreplacement, but her free T4 at that time looked robust, near the upper limit of normal at 1.42. This suggests thatvanessa may be having an intermittent malabsorption of her Synthroid. Since then, her LT4 dose has beenincreased to 175 mcg daily and this is her current dose for the past 4 months. I would like to recheck her TFTs today to see how this dose is doing for her. Why she is having a malabsorption is not fully clear to me - she has been on a PPI, which can causevariable absorption of thyroid hormone if taken to close. She used to take the PPI daily for at least several prior to her gallbladder surgery, and only every 3 days since her surgery. However, she has been very well counseled by her former doctors about how to appropriately space her Synthroid from food, meds, vitamins, and antacids including PPIs, so she was taking her PPI at bedtime, and taking her Synthroid in the morning, 30 min prior to meals and any other medications. She does not take amultivitamin nor any divalent minerals. She is not allowed to take iron due to her beta thalessemia and increased risk of iron overload involved. I wonder if her gallbladder issue may have contributed to her variable Synthroid absorption. PLAN: --check TFTs today. If euthyroid on current dose, can return thyroid hormone management to the careof her PCP and return to Endo clinic on an as needed basis for new concerns. --if Synthroid dose adjustment is needed, will plan to monitor levels and make dose adjustments remotely until she is on a stable dose, since [place] [facility] [place] Standing external lab slips provided today. --she did miss 3 days of her Synthroid last week because her prescription was delayed at the pharmacy, so I will interpret today's levels in context with that. Otherwise she is religion about takingher medication every day. 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 TSH Routine 11/17/2018 11:38 AM EDT Graves disease 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 T4, FREE Routine 11/17/2018 11:38 AM EDT Graves disease 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 documented in this encounter Results * TSH (11/17/2018 11:38 AM EDT) TSH 1.42 0.27 - 4.20 mcIU/mL [facility] Blood specimen (specimen) 11/17/2018 11:38 AM EDT 11/17/2018 11:46 AM EDT Narrative Resulting Agency Comment Spec In Lab Jes Moreno MD CHEMISTRY ORDERABLES Performing Organization Address City/[facility]/ZIP Co de Phone Number [facility] [place] [address] * (ABNORMAL) T4, free (11/17/2018 11:38 AM EDT) Free T4 1.81(H) 0.93 - 1.70 ng/dL [facility] Blood specimen (specimen) 11/17/2018 11:38 AM EDT 11/17/2018 11:46 AM EDT Narrative Resulting Agency Comment Spec In Lab Jes Moreno MD CHEMISTRY ORDERABLES [facility] [place] [address] * T3, free (11/17/2018 11:38 AM EDT) T3, Free 2.6 2.0 - 4.4 pg/mL [facility] Blood specimen (specimen) 11/17/2018 11:38 AM EDT 11/17/2018 11:46 AM EDT Narrative Resulting Agency Comment Spec In Lab Jes Moreno MD CHEMISTRY ORDERABLES Performing Organization Address City/[facility]/ZIP Co de Phone Number [facility] [place] [address] * (ABNORMAL) Thyroid Stimulating Immunoglobulins (11/17/2018 11:38 AM EDT) TSI 1.91(H) <=0.55 IU/L [facility] Blood specimen (specimen) 11/17/2018 11:38 AM EDT 11/18/2018 7:27 AM EDT Narrative Resulting Agency Comment Spec In Lab Jes Moreno MD IMMUNOLOGY ORDERABLE S Performing Organization Address [facility] Co de Phone Number [facility] [place] [address] documented in this encounter Visit Diagnoses Diagnosis Graves disease Toxic diffuse goiter without mention of thyrotoxic crisis or storm 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
--- OUTSIDE RECORDS SUMMARY | 2024-02-29 16:48 | XMS_ITS | Encounter Summary ---
Author Organization [facility] Address [address] [place] [address] Care Team Providers Care Miller First Name Role Phone Unavailable Primary Care Provider Unavailabl e Encounter Details Date Type Department Care Team (Late st Contact Info) Description 04/27/2008 Before PRISM Converted Visit (Maple) [facility] - Maple conversion [address] [place] [address] Monserrat Rodriguez, [facility] [address] [place] [address] Social History Tobacco Use Types [...] Priority Date/Time Associated Diagnosis Comments CYTOPATHOLOGY Routine 04/27/2008 0:00 EDT documented in this encounter Results * CYTOPATHOLOGY (04/27/2008 0:00 EDT) Pathology Report: CYTOPATHOLOGY REPORT ? Reports generated via electronic interface contain original data; ? however they are lacking the format of the original report. ? Caution should be taken when reading/interpreti ng unformatted reports. ? Name: ? STFRANCIS, SAIMA ? Accession #: ? [id number] ? : ? 1970 (Age: 38) ??F ?Collect Date: ? 04/27/2008 ? Location: ? [facility] ? Receive Date: ? 04/28/2008 ? Provider: ?MONSERRAT LAURIE SLED MAKER ? Copy to: ? Specimen/Source: ?ThinPrep Pap Test, Cervix/Endocervix, processed on Cytyc ThinPrep Imaging System, with manual evaluation ? Last Menstrual Period: ? 9/11/08 ? Other: ? HPVA - HPV testing requested if ASC-US on the current ThinPrep Pap test. ? SPECIMEN ADEQUACY ? Satisfactory for Evaluation ? - transformation zone component present ? GENERAL CATEGORIZATION ? Negative for Intraepithelial Lesion or Malignancy ? Document reviewed and electronically signed by: ? Marva Caraballo, SCT(ASCP) ? Report Date: ??05/02/2008 09:35 ? End of Report ? RADHA ESPINOSA 04/27/2008 04/28/2008 Monserrat Rodriguez SLED MAKER PATHOLOGY ORDERABLES RADHA ESPINOSA [address] [place] [address] documented in this encounter Visit Diagnoses Not on filedocumented in this encounter
--- OUTSIDE RECORDS SUMMARY | 2024-02-29 16:48 | XMS_ITS | Encounter Summary ---
Author Organization [facility] Address [facility] [place] [address] Care Team Providers Care Dental Laboratory Supervisor Name Role Phone Nicolas Dietz APRN Primary Care Provider [phone] Reason for Visit * Reason Comments Iron Deficiency Encounter Details Date Type Department Care Team (Latest Contact Info) Description 01/09/2012 8:12 AM EDT - 01/09/2012 11:59 PM EDT Hospital Encounter [place] [address] INFUSION THERAPY, MEDS None Erick Allred MD [facility] HEMATOLOGY AND [place] [address] [address] Iron deficiency anemia Discharge Disposition: Home Social [...] Sign Reading Time Taken Comments Blood Pressure 133/69 01/09/2012 12:37 PM EDT Pulse 66 01/09/2012 12:37 PM EDT Temperature 36.5 ??C (97.7 ??F) 01/09/2012 12:37 PM E DT Respiratory Rate 18 01/09/2012 12:37 PM EDT Oxygen Saturation 100% 01/09/2012 12:37 PM EDT Inhaled Oxygen Concentration - - Weight - - Height - - Body Mass Index - - documented in this encounter Medications at Time of Discharge Medication Sig Dispensed Refills Start Date End Date escitalopram (LEXAPRO) 20 mg tablet Take 20 mg by mouth twice a week. 11/17/2018 levothyroxine (SYNTHROID) 50 mcg tablet Take 50 mcg by mouth daily. 11/17/2018 documented as of this encounter Progress Notes * Godwin Leong RN - 01/20/2012 8:04 AM EDTEncounter addended by: Godwin Leong RN on: 01/20/2012 8:04 AM
Documentation filed: Inpatient Notes * Godwin Leong RN - 01/09/2012 9:11 AM EDT TIME TREATMENT STARTED: 914 TIME TREATMENT ENDED: 1235 Tamy Torres, 41 y.o. female with diagnosis of CORA is here forinfusion of Venofer. S: Pt. offers no complaints. O: orders independently verified for drug name, route and dosage Godwin Leong RN and Janessa Sexton RN. REACTIONS (DESCRIPTION, TIME, INTERVENTION AND EFFECTIVENESS) none A: Pt. Tolerated treatment well. Tamy Torres confirms that all questions and issues have beenaddressed. P: Return to clinic per routine. Venofer start: 1023 venofer stop: 1223 Discharge Note: Infusion completed. Tolerated well. IV access discontinued per protocol. Patient denies questions, concerns, complaint at this time. Discharged home. documented in this encounter Plan of Treatment Not on file documented as of this encounter Procedures Procedure Name Priority Date/Time Associated Diagnosis Comments CHEMOTHERAPY SCAN Routine 01/09/2012 documented in this encounter Results * Scan Doc: Chemotherapy (01/09/2012) Historical Provider MD ROME MGAlicia SCAN EX T ORDR/RSLT documented in this encounter Visit Diagnoses Diagnosis Iron deficiency anemia Iron deficiency anemia, unspecified documented in this encounter Administered Medications Inactive Administered Medications - up to 3 most recent administrations Medication Order MAR Action Action Date Dose Rate Site acetaminophen (TYLENOL) tablet 650 mg 650 mg, Oral, ONCE, 1 dose, On Thu01/09/12 at 1045, Maximum dose of acetaminophen is 4000 mg from all sources in 24 hours., Routine Given 01/09/2012 10:22 AM EDT 650 mg diphenhydrAMINE (BENADRYL) tablet 25 mg 25 mg, Oral, ONCE, 1 dose, On Thu01/09/12 at 1045, Routine Given 01/09/2012 10:22 AM EDT 25 mg iron sucrose (VENOFER) 300 mg in sodium chloride 0.9% 265 mL 300 mg, Intravenous, ONCE, 1 dose, On Thu01/09/12 at 0915, Administer over 120 Minutes Given 01/09/2012 10:22 AM EDT 300 mg 132.5 mL/hr documented in this encounter Care Teams Dental Laboratory Supervisor Relationship Specialty Start Date End Date Nicolas Dietz APRN PCP - General 01/09/12 08/30/18 documented as of this encounter
--- OUTSIDE RECORDS SUMMARY | 2024-02-29 16:48 | XMS_ITS | Encounter Summary ---
Author Organization Counts Include [facility] At [facility] Address [facility] [place] [address] Care Team Providers Care Entomology Professor Name Role Phone Unknown Primary Care Provider Unavailabl e Encounter Details Date Type Department Care Team (Latest Contact Info) Description 01/02/2012 2:24 PM EDT - 01/02/2012 11:59 PM EDT Hospital [place] [address] Kimmy David MD [facility] OBSTETRICS & [place] [address] Hypothyroid Discharge Disposition: Home Social History Tobacco Use [...] Procedure Name Priority Date/Time Associated Diagnosis Comments T3, FREE Routine 01/02/2012 2:35 PM EDT Hypothyroid TSH Routine 01/02/2012 2:35 PM EDT Hypothyroid T4 TOTAL Routine 01/02/2012 2:35 PM EDT Hypothyroid documented in this encounter Results * T4 (01/02/2012 2:35 PM EDT) T4, total 10.5 5.1 - 10.8 mcg/dL [facility] Comment: Reference Range: [place] Cord Blood: ??6.9-14.4 mcg/dL Females: ??7.2-14.2 mcg/dL Pediatric ranges: ??Interpret with caution-ranges have not been verified Blood specimen (specimen) 01/02/2012 2:35 PM EDT 01/02/2012 2:39 PM EDT Narrative Resulting Agency Comment Spec In Lab Kimmy Hill MD CHEMISTRY O RDERABLES Performing Organization Address [facility] Co de Phone Number [facility] * T3, free (01/02/2012 2:35 PM EDT) T3, Free 2.6 2.0 - 3.5 pg/mL [facility] Comment: Test Performed by: [facility] [place] [address] Designer Writer: Aleshia Ryan, Ph.D. Blood specimen (specimen) 01/02/2012 2:35 PM EDT 01/02/2012 3:34 PM EDT Narrative Resulting Agency Comment Spec In Lab Kimmy Hill MD CHEMISTRY O RDERABLES [facility] * TSH (01/02/2012 2:35 PM EDT) TSH 0.87 0.27 - 4.20 mcIU/mL [facility] Blood specimen (specimen) 01/02/2012 2:35 PM EDT 01/02/2012 2:39 PM EDT Narrative Resulting Agency Comment Spec In Lab Kimmy Hill MD CHEMISTRY O RDERABLES [facility] documented in this encounter Visit Diagnoses Diagnosis Hypothyroid Unspecified hypothyroidism documented in this encounter Care Teams Entomology Professor Relationship Specialty Start Date End Date Unknown None PCP - General 01/02/12 01/04/12 documented as of this encounter
--- OUTSIDE RECORDS SUMMARY | 2024-02-29 16:48 | XMS_ITS | Encounter Summary ---
Author Organization [facility] [address] Care Team Providers Care Government Documents Librarian Name Role Phone Unknown Primary Care Provider Unavailabl e Reason for Visit * Reason Onset Date Comments Labs Only 01/05/2012 cbc Encounter Details Date Type Department Care Team (Late st Contact Info) Description 01/05/2012 Telephone Hematology and Oncology at [facility] [place] [phone] Gin Botello Labs Only (cbc) Social History Tobacco Use Types Packs/Day Years [...] encounter Miscellaneous Notes * Telephone Encounter - Gin Botello RN - 01/05/2012 3:29 PM EDT CBC and iron studies received from Dr. Dietz. Pertinent values uploaded to ED and sent to Dr. Allred on pt's behalf. documented in this encounter Plan of Treatment Not on file documented as of this encounter Procedures Procedure Name Priority Date/Time Associated Diagnosis Comments CBC (WITH DIFF) Routine 12/19/2011 documented in this encounter Results * (ABNORMAL) CBC (with Diff) (12/19/2011) WBC 10.03(Exte rnal Lab) EXTERNAL LAB Hemoglobin 9.5(A) 12.0 - 16.0 EXTERNAL LAB Hematocrit 30.7(A) 36.0 - 46.0 EXTERNAL LAB Platelets 399 EXTERNAL LAB Neutr Abs (ANC) 7.14(H) EXTERNAL LAB Iron 41(A) 50 - 175 ug/dL EXTERNAL LAB TIBC 343(A) 250 - 45 ug/dL EXTERNAL LAB Transferrin 12(A) 15 - 50 % EXTERNAL LAB Comment:transferrin saturati on Blood specimen (specimen) 12/19/2011 Nicolas Dietz [employer]LE[employer] COMPUTING SOFTWARE ENGINEER HEMATOLOGY ORDERABL ES EXTERNAL LAB documented in this encounter Visit Diagnoses Not on filedocumented in this encounter Care Teams Government Documents Librarian Relationship Specialty Start Date End Date Unknown None PCP - General 01/05/12 01/08/12 documented as of this encounter
--- OUTSIDE RECORDS SUMMARY | 2024-02-29 16:48 | XMS_ITS | Encounter Summary ---
Author Organization Formerly [facility] Address [facility] [place] [address] Care Team Providers Care Order Clerk Name Role Phone Nicolas Dietz APRN Primary Care Provider [phone] Reason for Visit * Reason Comments IV Medication Venofer Encounter Details Date Type Department Care Team (Late st Contact Info) Description 01/23/2012 1:00 PM EDT Office Visit Hematology Oncology at [address] [phone] CLIN[address], DR FRANCO HEM/ONC Joon Eason MD [facility] HEMATOLOGY/[place] [address] Iron deficiency anemia (Primary Dx) Discharge Disposition: [...] Sign Reading Time Taken Comments Blood Pressure 122/68 01/23/2012 1:10 PM EDT Pulse 72 01/23/2012 1:10 PM EDT Temperature 36.6 ??C (97.9 ??F) 01/23/2012 1:10 PM ED T Respiratory Rate 16 01/23/2012 1:10 PM EDT Oxygen Saturation 98% 01/23/2012 1:10 PM EDT Inhaled Oxygen Concentration - - Weight - - Height - - Body Mass Index - - documented in this encounter Progress Notes * Iza Cueva RN - 01/23/2012 1:28 PM EDT INFUSION THERAPY ADMINISTRATION NOTES DIAGNOSIS: Iron Def. Anemia CYCLE #: dose #3 of 4 planned REASON FOR VISIT: Venofer SUBJECTIVE Tamy offers no complaints. OBJECTIVE IV ACCESS: PIV REACTIONS (DESCRIPTION, TIME, INTERVENTION AND EFFECTIVENESS) none ASSESSMENT Tamy was awake, alert and tolerated treatment well. PLAN Return to clinic per routine. documented in this encounter Procedure Notes * Provider, Scanning - 01/23/2012 4:30 PM EDTAssociated Order(s): SCAN DOC: CHEMOTHERAPY documented in this encounter Plan of Treatment Not on file documented as of this encounter Procedures Procedure Name Priority Date/Time Associated Diagnosis Comments CHEMOTHERAPY SCAN 01/23/2012 4:3 0 PM EDT documented in this encounter Results * SCAN DOC: CHEMOTHERAPY (01/23/2012 4:30 PM EDT) Narrative 01/23/2012 4:30 PM EDT Procedure Note Provider, Scanning - 01/23/2012 4:30 PM EDT Scanning Provider MEDIA MGR SCAN EXT O RDR/RSLT documented in this encounter Visit Diagnoses Diagnosis Iron deficiency anemia- Primary Iron deficiency anemia, unspecified documented in this encounter Administered Medications Inactive Administered Medications - up to 3 most recent administrations Medication Order MAR Action Action Date Dose Rate Site acetaminophen (TYLENOL) tablet 650 mg 650 mg, Oral, ONCE, 1 dose, On Thu01/23/12 at 1400, Routine Given 01/23/2012 1:15 PM EDT 650 mg diphenhydrAMINE (BENADRYL) tablet 25 mg 25 mg, Oral, ONCE, 1 dose, On Thu01/23/12 at 1300, Routine Given 01/23/2012 1:15 PM EDT 25 mg iron sucrose (VENOFER) 300 mg in sodium chloride 0.9% 265 mL 300 mg, Intravenous, ONCE, 1 dose, On Thu01/23/12 at 1400, Administer over 120 Minutes Given 01/23/2012 1:50 PM EDT 300 mg 132.5 mL/hr documented in this encounter Care Teams Order Clerk Relationship Specialty Start Date End Date Nicolas Dietz, PELON PCP - General 01/09/12 08/30/18 documented as of this encounter
--- OUTSIDE RECORDS SUMMARY | 2024-02-29 16:48 | XMS_ITS | Encounter Summary ---
Author Organization [facility] Address [facility] [place] [address] Care Team Providers Care Digital Media Coordinator Name Role Phone J Luis Nicolas Yeboah APRN Primary Care Provider [phone] Reason for Visit * Reason Onset Date Comments Questions 02/02/2012 Re: Venofer Infu sions Encounter Details Date Type Department Care Team (Late st Contact Info) Description 02/02/2012 Telephone Hematology Oncology at [address] [phone] Iza Cueva RN Questions (Re: Venofer Infusions) Social History Tobacco Use Types Packs/Day Years [...] encounter Miscellaneous Notes * Telephone Encounter - Iza Cueva RN - 02/02/2012 10:07 AM EDT From Erick Allred MD Sent Thursday February 02, 2012 7:39 AM To Iza Cueva RN Cc Marie Martin RN Subject RE: VENOFER question Message We will hold at 4 doses. Marie, can you please check a CBC, ferritin, iron studies in [facility] in 4-6 weeks from now and routeto my attention. Dilan Rose ----- Message ----- From: Iza Cueva RN Sent: 01/30/2012 8:25 AM To: Erick Allred MD Subject: VENOFER question I have orders for this patient, and wanted to verify that you only wanted 4 doses of VENOFER. If so, that will be completed today. If you would like more, then I will need another order. Please advise, as today is #4. And I will inform the patient that we are done with the infusions for now. Thank you. Iza Cueva RN [facility] [phone] documented in this encounter Plan of Treatment Not on file documented as of this encounter Visit Diagnoses Not on filedocumented in this encounter Care Teams Digital Media Coordinator Relationship Specialty Start Date End Date Nicolas Dietz APRN PCP - General 01/09/12 08/30/18 documented as of this encounter
--- OUTSIDE RECORDS SUMMARY | 2024-02-29 16:48 | XMS_ITS | Encounter Summary ---
Author Organization [facility] Address [facility] [place] [address] Care Team Providers Care Technology Resource Teacher Name Role Phone Nicolas Dietz APRN Primary Care Provider [phone] Reason for Visit * Reason Comments Other Venofer infusion - d ose 4 of 4 ordered Encounter Details Date Type Department Care Team (Late st Contact Info) Description 01/30/2012 9:05 AM EDT Office Visit Hematology Oncology at [address] [phone] [facility] HEMATOLOGY/[place] [address] CLINIC, DR FRANCO HEM/ONC Thalassemia trait, beta Discharge Disposition: Home Social [...] Sign Reading Time Taken Comments Blood Pressure 129/74 01/30/2012 9:09 AM EDT Pulse 79 01/30/2012 9:09 AM EDT Temperature 36.8 ??C (98.2 ??F) 01/30/2012 9:09 AM ED T Respiratory Rate 18 01/30/2012 9:09 AM EDT Oxygen Saturation 99% 01/30/2012 9:09 AM EDT Inhaled Oxygen Concentration - - Weight - - Height - - Body Mass Index - - documented in this encounter Progress Notes * Danni Levine RN - 01/30/2012 9:49 AM EDT INFUSION THERAPY ADMINISTRATION NOTES TIME TREATMENT STARTED: 844 TIME TREATMENT ENDED: 1150 DIAGNOSIS: Iron deficiency anemia PROTOCOL: No CYCLE #: Dose 4 of [address] Allred REASON FOR VISIT: SUBJECTIVE Tamy Torres offers no complaints. OBJECTIVE LAB DATA: Labs reviewed and found adequate for treatment. IF PAIN IS >5, INTERVENTION AND EFFECTIVENESS: n/a Pre administration: Chemotherapy orders independently verified for drug name, route, and dosage per patient's height, weight and BSA by Danni Perez RN and Iza Cueva RN. REACTIONS (DESCRIPTION, TIME, INTERVENTION AND EFFECTIVENESS) none ASSESSMENT Tamy Torres was awake, alert and he tolerated treatment well. PLAN Return to clinic per routine. documented in this encounter Plan of Treatment Not on file documented as of this encounter Visit Diagnoses Diagnosis Thalassemia trait, beta Thalassemia minor documented in this encounter Administered Medications Inactive Administered Medications - up to 3 most recent administrations Medication Order MAR Action Action Date Dose Rate Site acetaminophen (TYLENOL) tablet 650 mg 650 mg, Oral, ONCE, 1 dose, On Thu01/30/12 at 0900, Routine Given 01/30/2012 9:00 AM EDT 650 mg diphenhydrAMINE (BENADRYL) tablet 25 mg 25 mg, Oral, ONCE, 1 dose, On Thu01/30/12 at 0900, Routine Given 01/30/2012 9:00 AM EDT 25 mg iron sucrose (VENOFER) 300 mg in sodium chloride 0.9% 265 mL 300 mg, Intravenous, ONCE, 1 dose, On Thu01/30/12 at 0900, Administer over 120 Minutes Given 01/30/2012 9:39 AM EDT 300 mg 132.5 mL/hr documented in this encounter Care Teams Technology Resource Teacher Relationship Specialty Start Date End Date Nicolas Dietz APRN PCP - General 01/09/12 08/30/18 documented as of this encounter
--- OUTSIDE RECORDS SUMMARY | 2024-02-29 16:48 | XMS_ITS | Encounter Summary ---
Author Organization [facility] [place] [address] Care Team Providers Care Shafting Cleaner Name Role Phone Unknown Primary Care Provider Unavailabl e Encounter Details Date Type Department Care Team (Latest Contact Info) Description 01/05/2012 1:17 PM EDT - 01/05/2012 11:59 PM EDT Hospital Encounter Ultrasound at [facility] [place] [phone] Menorrhagia; Hypothyroidism; Anemia; Hypothyroid Social History Tobacco Use Types Packs/Day Years [...] Procedure Name Priority Date/Time Associated Diagnosis Comments US TRANSVAGINAL NON OB Routine 01/05/2012 2:16 PM EDT Menorrhagia Hypothyroidism Anemia Hypothyroid documented in this encounter Results * US Transvaginal non OB (01/05/2012 2:16 PM EDT) Anatomical Region Laterality Modality Ultrasound 01/05/2012 2:16 PM EDT Narrative 01/05/2012 2:29 PM EDT ?Gynecological Report ? (Signed Final 01/05/2012 02:28 pm) Patient Info ID: ? [id number] ? : [birth year] (41 yrs) Name: ? [address] ? Visit Date: 01/05/2012 01:42 pm Performed By Performed By: ?Josiane Willett RDMS Attending: ? Lambert Hill MD, Desi Referred By: ? DESI LAMBERT HILL MD Service(s) Provided UTV - Ultrasound - Transvaginal - [id number] ? [id number] Indications Intrauterine filling defect, menorrhagia, anemia Possible SHG, History of tubal ligation ------- History ------- Age: ?? 41 LMP: ?? 12/26/11 ?Day Of Cycle: ?? 11 Previous Pelvic Surgery Tubal ligation reversal ------ Uterus ------ Uterus: ? Visualized Position: ?? Anteverted Size (cm) ?L: ??9.1 ? W: ?? 6.3 ?H: ??4.6 Vol (ml): ?138.1 Endometrium Endometrium: ?Normal appearance Thickness(mm): ?6.8 ------ Cervix ------ Multiple nabothian cysts seen [place] No fluid was visualized Right Ovary Status: ?? Visualized Size (cm) ?L: ??4.5 ? W: ?? 3 ?H: ??3.8 Vol (ml): ?26.9 Morphology: ?Normal appearance Type: ?? Simple cyst Size (cm) ?L: ??3.4 ? W: ?? 3.1 ?H: ??3.4 Vol (ml): ?18.8 Comment: ? Adnexa: ??Small amount of free fluid adjacent to ?right ovary. Left Ovary Status: ?? Visualized Size (cm) ?L: ??3.7 ? W: ?? 2.1 ?H: ??1.7 Vol (ml): ?6.9 Morphology: ?Normal appearance -------- Comments -------- Yesenia Gonsales MD assisted with study. Impression Ultrasound - Transvaginal - Summary The uterus and adnexa are visualized. The endometrial echo complex measures 6.8 mm. This study was performed transvaginally. I ??viewed the images and agree with the above interpretation. Thank you for allowing us to participate in the care of [address]. Please do not hesitate to call if you have any questions. ?Desi Hill MD Electronically Signed Final Report ?? 01/05/2012 02:28 pm Procedure Note Desi David MD - 01/05/2012 Gynecological Report (Signed Final 01/05/2012 02:28 pm) Patient Info ID: [id number] : [birth year] (41 yrs) Name: [address] Visit Date: 01/05/2012 01:42 pm Performed By Performed By: Josiane Willett [facility] Attending: Desi David MD Referred By: DESI HILL MD Service(s) Provided UTV - Ultrasound - Transvaginal - [id number] Indications Intrauterine filling defect, menorrhagia, anemia Possible SHG, History of tubal ligation ------- History ------- Age: 41 LMP: 12/26/11 Day Of Cycle: 11 Previous Pelvic Surgery Tubal ligation reversal ------ Uterus ------ Uterus: Visualized Position: Anteverted Size (cm) L: 9.1 W: 6.3 H: 4.6 Vol (ml): 138.1 Endometrium Endometrium: Normal appearance Thickness(mm): 6.8 ------ Cervix ------ Multiple nabothian cysts seen [place] No fluid was visualized Right Ovary Status: Visualized Size (cm) L: 4.5 W: 3 H: 3.8 Vol (ml): 26.9 Morphology: Normal appearance Type: Simple cyst Size (cm) L: 3.4 W: 3.1 H: 3.4 Vol (ml): 18.8 Comment: Adnexa: Small amount of free fluid adjacent to right ovary. Left Ovary Status: Visualized Size (cm) L: 3.7 W: 2.1 H: 1.7 Vol (ml): 6.9 Morphology: Normal appearance -------- Comments -------- Yseenia Gonsales MD assisted with study. Impression Ultrasound - Transvaginal - Summary The uterus and adnexa are visualized. The endometrial echo complex measures 6.8 mm. This study was performed transvaginally. I viewed the images and agree with the above interpretation. Thank you for allowing us to participate in the care of [address]. Please do not hesitate to call if you have any questions. Desi Hill MD Electronically Signed Final Report 01/05/2012 02:28 pm Desi Hill MD IMG US PELV IC ORDERABLES documented in this encounter Visit Diagnoses Diagnosis Menorrhagia Excessive or frequent menstruation Hypothyroidism Unspecified hypothyroidism Anemia Anemia, unspecified Hypothyroid Unspecified hypothyroidism documented in this encounter Care Teams Shafting Cleaner Relationship Specialty Start Date End Date Unknown None PCP - General 01/05/12 01/08/12 documented as of this encounter
--- OUTSIDE RECORDS SUMMARY | 2024-02-29 16:48 | XMS_ITS | Encounter Summary ---
Author Organization Formerly [facility] Address [facility] [place] [address] Care Team Providers Care Converter Operator Name Role Phone Dani Vidal DNP Primary Care Provider Reason for Referral * Diagnostic Test (Routine) - Closed Specialty Diagnoses / Procedures Referred By Contac t Referred To Contact Radiology Diagnoses Splenomegaly Procedures CT Chest Abdomen Pelvis w Contrast (Generic) Tim Rodríguez MD [facility] DR HEMATOLOGY/[place] [address] [facility] [place] [address] Referral ID Status Reason Start Date Expiration Date V isits Requested Visits Authorized [id number] Closed Specialty Service Requested 12/16/2018 12/16/2019 1 1 Reason for Visit * Reason Comments Advice Only * Consultation (Routine) - Closed Specialty Diagnoses / Procedures Referred By Contac t Referred To Contact Hematology and Oncology Diagnoses SPLENOMEGALY, BETA THALASSEMIA Dani Vidal DNP [address] [place] [address] [facility] [address] [address] [place] [address] Referral ID Status Reason Start Date Expiration Date V isits Requested Visits Authorized [id number] Closed Consult, Test & Treat Connection Center 08/31/2018 08/31/2019 1 1 Encounter Details Date Type Department Care Team (Late st Contact Info) Description 12/16/2018 1:00 PM EDT Office Visit Hematology [place] [address] Erick Allred MD [facility] DR HEMATOLOGY [place] [address] Kaleigh Cameron APRN [facility] [address] HEMATOLOGY [place] [address] Tim Rodríguez MD [facility] [place]OLOG[place] [address] Thalassemia trait, beta; Splenomegaly Social History Tobacco Use Types Packs/Day Years [...] Sign Reading Time Taken Comments Blood Pressure 118/74 12/16/2018 1:16 PM EDT Pulse 74 12/16/2018 1:16 PM EDT Temperature 36.4 ??C (97.5 ??F) 12/16/2018 1:16 PM ED T Respiratory Rate 18 12/16/2018 1:16 PM EDT Oxygen Saturation 100% 12/16/2018 1:16 PM EDT Inhaled Oxygen Concentration - - Weight 110.3 kg (243 lb 3.2 oz) 12/16/2018 1:16 PM EDT Height 171.7 cm (5' 7.6) 12/16/2018 1:16 PM EDT Body Mass Index 37.42 12/16/2018 1:16 PM EDT documented in this encounter Progress Notes * Tim Rodríguez - 12/16/2018 1:00 PM EDT NEW HEMATOLOGY CONSULT Reason for consult: We are seeing Tamy Torres at the request of Dani Vidal NP to evaluate for possible evaluation of splenomegaly. . I have reviewed all available records, interviewed and examined the patient. HPI Tamysavage Torres rocky Marion Degree, is 48 y.o. F who is seen today in our hematology clinic for evaluation of splenomegaly. 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 This has since resolved post a uterine ablation in mid 2011. She does have a history of hypothyroidism followed by a diagnosis of Graves diease, hyperthyroidisms/p a thyroid ablation in 2016 and a recent diagnosis of ? hashimotos disease. The patient is primarily from [place] but had moved to [place] in 2013 to help her sister who had an autistic son. While she was there she met her whom she in 2014. During her time there she developed complications with her thyroid gland which resulted in a medical thyroid ablation at [facility] in [place]. Her overall course at that time was complicated by chronic fatigue syndrome and fibromyalgia. In 2016 she started having persistent diarrhea with anasarca where she was found to have liver abnormalities and had borderline diabetes. She put herself on a gluten free diet which has helped partially. She had an endoscopy and a colonoscopy where she was told that she had 3 polyps in her colon with esophagitis and gastritis. They did a CT scan and said that she had gallstones alongwith splenomegaly and hepatomegaly along with some pancreatic swelling with regional lymphadenopathy. Unfortunately the patients abandoned her in Jun 2018 as a result of which she moved back upto [place] with her daughter. She struggled with homelessness initially and now has a temporary home. She is not working currently and is on disability. Her daughter is living with her boyfriend. Her daughter is involved in her medical care. After returning to [place] she reestablished care at [facility]. There she has had a HIDA scan and had a cholecystectomy in Sep 2018. She has been evaluated by endocrinology for possible ?Hashimotos thyroiditis. She has not had CT scans in [place]. She does have a hiatal hernia that causes her some pain. On occasion she has RUQ or LUQ pain with occasional back pain. She presents today to evaluate the possibility of her splenomegaly being related to her Beta Thal Trait. ROS 10 point ROS negative except as noted in the HPI. Outpatient Medications Marked as Taking for the 12/16/18 encounter (Office Visit) with Erick Allred MD Medication Sig Dispense Refill ??? biotin 300 mcg Tablet Take by mouth. ??? selenium 50 mcg Tablet Take 50 mcg by mouth. ??? zinc sulfate (ZINCATE) 220 (50) mg Capsule Take 220 mg by mouth daily. ??? omeprazole (PRILOSEC) 40 mg Capsule, Delayed Release(E.C.) Take 40 mg by mouth daily. ??? ascorbic acid (VITAMIN C ORAL) Take by mouth daily. ??? VITAMIN B COMPLEX ORAL Take by mouth. LIQUID DAILY ??? MAGNESIUM ORAL Take by mouth daily. ??? MILK THISTLE ORAL Take by mouth daily. ??? OMEGA-3 FATTY ACIDS-EPA ORAL Take by mouth daily. ??? levothyroxine (SYNTHROID) 175 mcg Tablet Take 175 mcg by mouth daily. Brand name Synthroid only. Past Medical History: Diagnosis Date ??? Bipolar affective disorder 12/26/2011 ??? Chlamydia treated outpatient ??? Hyperlipidemia 12/26/2011 ??? Hypothyroidism synthroid recently initiated labs pending ??? Obesity (BMI 35.0-39.9 without comorbidity) 12/26/2011 ??? PTSD (post-traumatic stress disorder) 12/26/2011 ??? Thalassemia trait, beta 12/26/2011 Past Surgical History: Procedure Laterality Date ??? ABDOMEN SURGERY Laparoscopy [facility] age 20s for endometriosis, negative for endometriosis ??? DILATION AND CURETTAGE OF UTERUS Miscarriage age 21 ??? TONSILLECTOMY Age 21 or 22 ??? TUBAL LIGATION Unknown type possible laparoscopic two years after of child Family History Problem Relation Age of Onset ??? Blood Disorder Mother ??? Heart Disease Mother ??? Hypertension Mother ??? Thyroid Disease Mother ??? Diabetes Father ??? Thyroid Disease Father Social History Socioeconomic History ??? Marital status: Single Spouse name: None ??? Number of children: None ??? Years of education: None ??? Highest education level: None Occupational History ??? None Social Needs ??? Financial resource strain: None ??? Food insecurity: Worry: None Inability: None ??? Transportation needs: Medical: None Non-medical: None Tobacco Use ??? Smoking status: Never Smoker ??? Smokeless tobacco: Never Used Substance and Sexual Activity ??? Alcohol use: No ??? Drug use: No ??? Sexual activity: Yes Partners: Male Lifestyle ??? Physical activity: Days per week: None Minutes per session: None ??? Stress: None Relationships ??? Social connections: Talks on phone: None Gets together: None Attends mandaen service: None Active member of club or organization: None Attends meetings of clubs or organizations: None Relationship status: None ??? Intimate partner violence: Fear of current or ex partner: None Emotionally abused: None Physically abused: None Forced sexual activity: None Other Topics Concern ??? 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 Otherwise on disability based on bipolar. Hospitalized 13 days years ago in [place]. She describes her symptoms from her bipolar as well controlled. Her anemia is limiting her ability to work. PHYSICAL EXAM @ipvitals[24@ Body surface area is 2.29 meters squared. Wt Readings from Last 3 Encounters: 12/16/18 110.3 kg (243 lb 3.2 oz) 11/17/18 112 kg (247 lb) 04/23/12 (!) 115.4 kg (254 lb 6.6 oz) Constitutional: Obese, appears in NAD Eye: Normal conjuctivae, PERRL, EOMI HENT: normocephalic and atraumatic head, neck supple and non- tender, no lymphadenopathy appreciated. Oral mucosa moist, no mucosal abnormalities, no pharyngeal erythema Pulm: Clear to auscultation bilaterally, no wheezes, rhonchi or rales; good inspiratory effort CVS: normal S1 and S2, RRR, no murmurs GI: Soft, mildly tender on deep palpation, cholecystectomy scary noted, bowel sounds appreciated inall 4 quadrants Ext: No edema, clubbing MSK: No joint swelling, no spinal tenderness Neuro: CN2-12 grossly intact, no focal deficits Psych/ mood: Does not appear anxious or depressed, good affect DIAGNOSTICS Lab Results Component Value Date WBC 12.7 (H) 12/16/2018 WBC 12.7 (H) 12/16/2018 HGB 12.6 12/16/2018 HGB 12.6 12/16/2018 HCT 42.9 12/16/2018 HCT 42.9 12/16/2018 MCV 67.0 (L) 12/16/2018 MCV 67.0 (L) 12/16/2018 PLATELET 416 (H) 12/16/2018 PLATELET 416 (H) 12/16/2018 Lab Results Component Value Date NA 141 12/16/2018 K 4.2 12/16/2018 CL 103 12/16/2018 CO2 24 12/16/2018 BUN 10 12/16/2018 CREATININE 0.81 12/16/2018 GLUCOSE 85 12/16/2018 CALCIUM 9.6 12/16/2018 ESTGFR 86 12/16/2018 Lab Results Component Value Date ALT 16 12/16/2018 AST 24 12/16/2018 ALKPHOS 121 (H) 12/16/2018 BILITOT 0.7 12/16/2018 BILIDIR 0.1 01/02/2012 ALBUMIN 4.3 12/16/2018 PROT 8.7 (H) 12/16/2018 ASSESSMENT and PLAN Ms Morelos is a 48yo F with a complicated PMH who presents for evaluation of ?splenomegaly and its relation to her beta thalassemia trait. Unfortunately Tamy has had an extremely complicated personal life over the last few months and this has been compounded by her several medical issues as noted in the HPI. At this point it is important to note that Tamy does NOT have Beta thalassemia major. Based on her history she is most likely a Beta Thalassemia TRAIT, with a small possibility of a beta thalassemia INTERMEDIA. However this will likely be clarified on a Hb Electrophoresis ordered today. In general, beta thalassemia trait is not associated with splenomegaly and has only mild erythropoietic dysfunction with increased RE system uptake. Dominant Beta thalassemia ( a type of beta thal trait) can be associated with splenomegaly but is also associated with significantly more erythropoietic dysfunction. Today, Tamy has an effectively normal Hb with an extremely low MCV which is very suggestive of a Beta Thal trait. We will order a CT of the abdomen and pelvis W contrast to hopefully be scheduled prior to her surgical appt next we along with routine labs and an Hb electrophoresis. This will also help evaluate the enlarged abdominal lymph nodes in her history. I am concerned about a primary liver issue and she is seeing a packaging designer in [place] nextweek. We will call her back with the results of the CT scan and the rest of her labs and decide then whether she needs to follow up with us. However at this point I believe that her current medical issues are likely unrelated to her Beta thal Trait. Plan: CT Scan of the Abdomen and Pelvis W contrast CBC CMP Reticulocyte count Hb electrophoresis, quantitative Scheduled to see a Global Supply Chain Vice President in [place] next week. Thank you for the consult. Patient's case was discussed with my attending Dr. Chalino Rodríguez MD Hematology Oncology fellow Pager [phone] * Erick Allred MD - 12/16/2018 1:00 PM EDT I have seen the patient and reviewed the fellow's above history and I agree with the details as written. The assessment and plan were formulated in discussion with me and I agree with them as documented. Erick Allred MD Risk Management Specialistdental ceramist Section of Hematology/Oncology [facility] documented in this encounter Plan of Treatment Not on file documented as of this encounter Results * CT Chest Abdomen Pelvis w Contrast (Generic) (12/22/2018 5:32 PM EDT) Anatomical Region Laterality Modality Abdomen, Pelvis Computed Tomogra phy Impressions 12/22/2018 6:34 PM EDT No acute findings. No lymphadenopathy. Mild hepatosplenomegaly. Thank you for letting us participate in the care of this patient. For questions regarding this report, please contact the number below. ? Narrative 12/22/2018 6:34 PM EDT EXAMINATION: CT CHEST ABDOMEN PELVIS W CONTRAST (GENERIC) CLINICAL HISTORY: ?lymphadenopathy, PMH of splenomegaly and hepatomegaly TECHNIQUE: Helical CT of the chest, abdomen, and pelvis was performed following intravenous administration of contrast. Administered 120.0 ml of OMNIPAQUE 350.00 mg/ml. Oral contrast was administered. COMPARISON: None FINDINGS: Chest: Lungs and large airways: Normal. Pleura: No effusion. Heart/vasculature: Normal. Lymph nodes: No enlarged lymph nodes. Mediastinum and shaina: Normal. Abdomen/pelvis: Liver: Mildly enlarged, measuring 19.4 cm in cranial to caudal dimension. Bile ducts: Nondilated. Gallbladder: Postcholecystectomy Pancreas: Normal attenuation without ductal dilatation. Spleen: Normal. Adrenals: Normal. Kidneys: Normal. Symmetric renal enhancement. No renal collecting system obstruction bilaterally Urinary Bladder: Normal. Vasculature: No aneurysm. Lymph Nodes: ??No enlarged lymph nodes. Bowel: Nondilated, no wall thickening. ?? Peritoneum and mesentery: No ascites, free air, or loculated fluid collection. No mesenteric inflammation. Abdominal wall: Normal. Reproductive organs: Normal. Osseous structures: No suspicious lesions. Procedure Note Alvin Lyons MD - 12/22/2018 EXAMINATION: CT CHEST ABDOMEN PELVIS W CONTRAST (GENERIC) CLINICAL HISTORY: ?lymphadenopathy, PMH of splenomegaly and hepatomegaly TECHNIQUE: Helical CT of the chest, abdomen, and pelvis was performedfollowing intravenous administration of contrast. Administered 120.0 ml ofOMNIPAQUE 350.00 mg/ml. Oral contrast was administered. COMPARISON: None FINDINGS: Chest: Lungs and large airways: Normal. Pleura: No effusion. Heart/vasculature: Normal. Lymph nodes: No enlarged lymph nodes. Mediastinum and shaina: Normal. Abdomen/pelvis: Liver: Mildly enlarged, measuring 19.4 cm in cranial to caudaldimension. Bile ducts: Nondilated. Gallbladder: Postcholecystectomy Pancreas: Normal attenuation without ductal dilatation. Spleen: Normal. Adrenals: Normal. Kidneys: Normal. Symmetric renal enhancement. No renal collecting system obstruction bilaterally Urinary Bladder: Normal. Vasculature: No aneurysm. Lymph Nodes: No enlarged lymph nodes. Bowel: Nondilated, no wall thickening. Peritoneum and mesentery: No ascites, free air, or loculated fluidcollection. No mesenteric inflammation. Abdominal wall: Normal. Reproductive organs: Normal. Osseous structures: No suspicious lesions. IMPRESSION No acute findings. No lymphadenopathy. Mild hepatosplenomegaly. Thank you for letting us participate in the care of this patient. Forquestions regarding this report, please contact the number below. Erick Allred MD IMG CT ORDERABLES * (ABNORMAL) Comprehensive metabolic panel (non-fasting) (12/16/2018 2:31 PM EDT) Glucose Lvl 85 65 - 199 mg/dL [facility] Comment:Diabetes: >=200 mg/d L plus symptoms BUN 10 8 - 18 mg/dL [facility] Creatinine 0.81 0.70 - 1.20 mg/dL [facility] Sodium 141 135 - 145 mmol/L [facility] Potassium 4.2 3.5 - 5.0 mmol/L [facility] Comment: Please note: ??Patients with WBC >100,000 may have falsely elevated Potassium levels. ??For accurate Potassium quantification in these patients send serum separator tube (gold top) for subsequent determinations. ??Contact the Clinical Chemistry Laboratory if there are any questions. Chloride 103 98 - 107 mmol/L [facility] CO2 24 22 - 31 mmol/L [facility] Anion Gap 14 5 - 15 mmol/L [facility] Calcium 9.6 8.5 - 10.5 mg/dL [facility] Total Protein 8.7(H) 6.1 - 8.0 gm/dL [facility] Albumin 4.3 3.2 - 5.2 gm/dL [facility] AST 24 0 - 30 unit/L [facility] ALT 16 0 - 30 unit/L [facility] Alk Phos 121(H) 40 - 104 unit/L [facility] Total Bilirubin 0.7 0.2 - 1.3 mg/dL [facility] Estimated GFR 86 >=60 mL/min/1. 73 m?? [facility] Comment: The eGFR was calculated using the CKD-EPI equation. As with all creatinine based estimates of kidney function, eGFR values calculated with the CKD-EPI equation are not accurate in patients with acute kidney failure, extremes of body mass or the acutely ill. http://[employer]GE[employer] eGFR 100 >=60 mL/min/1. 73 m?? [facility] Comment: The eGFR was calculated using the CKD-EPI equation. As with all creatinine based estimates of kidney function, eGFR values calculated with the CKD-EPI equation are not accurate in patients with acute kidney failure, extremes of body mass or the acutely ill. http://[employer] Blood specimen (specimen) 12/16/2018 2:31 PM EDT 12/16/2018 2:43 PM EDT Narrative Resulting Agency Comment Spec In Lab Erick Allred MD CHEMISTRY ORDERABL ES [facility] [place] [address] documented in this encounter Visit Diagnoses Diagnosis Thalassemia trait, beta Thalassemia minor Splenomegaly Splenomegaly documented in this encounter Care Teams Converter Operator Relationship Specialty Start Date End Date Dani Vidal DNP PCP - General Family Medicine 08/31/18 03/04/22 documented as of this encounter
--- OUTSIDE RECORDS SUMMARY | 2024-02-29 16:48 | XMS_ITS | Encounter Summary ---
Author Organization [facility] [place] [address] Care Team Providers Care Outpatient Admitting Clerk Name Role Phone J Luis Nicolas Yeboah APRN Primary Care Provider [phone] Encounter Details Date Type Department Care Team (Late st Contact Info) Description 01/15/2012 External Results [place]ematology [place] [id number] Erick Allred MD [facility] DR [place]AT[place] [address] Social History Tobacco Use Types Packs/Day Years [...] Priority Date/Time Associated Diagnosis Comments HEMOGRAM Routine 01/13/2012 documented in this encounter Results * (ABNORMAL) Hemogram (01/13/2012) WBC 11.46(EXTE RNAL/ABN) Hemoglobin 10.0(EXTER NAL/ABN) 12.0 - 16.0 Hematocrit 32.0(EXTER NAL/ABN) 36.0 - 46.0 Platelets 404(TANK OPERATOR AL/ABN) Neutr Abs (ANC) 7.44(EXTER NAL/ABN) Blood specimen (specimen) 01/13/2012 Narrative Marie Martin, RN - 01/13/[address] [facility] on 01-13-12 Historical Provider HEMATOLOGY ORDERA BLES documented in this encounter Visit Diagnoses Not on filedocumented in this encounter Care Teams Outpatient Admitting Clerk Relationship Specialty Start Date End Date Nicolas Dietz, PELON PCP - General 01/09/12 08/30/18 documented as of this encounter
--- OUTSIDE RECORDS SUMMARY | 2024-02-29 16:48 | XMS_ITS | Encounter Summary ---
Author Organization [facility] Address [address] [place] [address] Care Team Providers Care Fitter Up Name Role Phone Nicolas Dietz APRN Primary Care Provider [phone] Encounter Details Date Type Department Care Team (Late st Contact Info) Description 09/30/2012 Results Only [facility] Laboratory Services - [facility] ([facility]) [address] [place], [place] [id number] David Castro MD [address] [facility] [place] [address] Social History Tobacco Use Types Packs/Day Years [...] Procedure Name Priority Date/Time Associated Diagnosis Comments SURGICAL PATHOLOGY Routine 09/30/2012 10 :34 EST documented in this encounter Results * SURGICAL PATHOLOGY (09/30/2012 10:34 EST) Pathology Report: SURGICAL PATHOLOGY REPORT Reports generated via electronic interface contain original data; however they are lacking the format of the original report. Caution should be taken when reading/interpreti ng unformatted reports. Name: ? WILLIAM, TAMY ? Accession #: ? [id number] ? : ? 1970 (Age: 42) ??F ? Collect Date: ? 09/30/2012 ? Location: ? [facility] ? Receive Date: ? 10/01/2012 ? Provider: DAVID CASTRO MD Copy to: NICOLAS CAMPBELL ? Final Pathologic Diagnosis: ? Endometrium, curettage: 1. ?Inactive endometrium with tubal metaplasia, papillary syncytial metaplasia, and extensive stromal breakdown. ? 2. ??Fragments of benign endocervical tissue. ?? Document reviewed and electronically signed by: ESTHER GRIFFITH MD Report ??Date: 10/07/2012 11:43 By the signature above, the attending physician certifies that he/she has personally conducted a gross and/or microscopic examination of the described specimens and rendered or confirmed the above diagnosis. Specimen(s) Received: ? Endometrial curettings Clinical History: ? Menorrhagia Gross Description: ? Received in formalin labelled StFrancis, Tamy and endometrial curettings is a 3.3 x 2.6 x 0.8 cm aggregate of red-brown, hemorrhagic and clear mucinous material. ??The specimen is entirely submitted as (1)-(4) following filtration. (Pastora Hong)/mpl End of Report RADHA ESPINOSA 09/30/2012 10:3 4 EST 10/01/2012 10:34 EST David Castro MD PATHOLOGY ORDERABLES Performing Organization Address City/State/[facility] Co de Phone Number RADHA ESPINOSA [address] [place] [address] documented in this encounter Visit Diagnoses Not on filedocumented in this encounter Care Teams Fitter Up Relationship Specialty Start Date End Date Nicolas Dietz APRN [address] [place] [id number] PCP - General 10/01/12 09/17/20 documented as of this encounter
--- OUTSIDE RECORDS SUMMARY | 2024-02-29 16:48 | XMS_ITS | Encounter Summary ---
Author Organization [facility] Address [address] [place] [address] Care Team Providers Care Photography Spotter Name Role Phone Nicolas Dietz PELON Primary Care Provider [phone] Encounter Details Date Type Department Care Team (Late st Contact Info) Description 09/08/2018 Results Only [facility] [phone] Alvin Dennison MD [address] [facility] [place], [place] [id number] Social History Tobacco Use Types Packs/Day Years [...] Date/Time Associated Diagnosis Comments SURGICAL PATHOLOGY Routine 09/08/2018 13 :08 EST documented in this encounter Results * SURGICAL PATHOLOGY (09/08/2018 13:08 EST) Pathology Report: SURGICAL PATHOLOGY REPORT Reports generated via electronic interface contain original data; however they are lacking the format of the original report. Caution should be taken when reading/interpret ing unformatted reports. Name: ? TAMY THOMAS ? Accession #: ? [id number] ? : ? 1970 (Age: 48) ??F ? Collect Date: ? 09/08/2018 ? Location: ? [facility] ? Receive Date: ? 09/08/2018 ? Provider: ALVIN DENNISON MD Copy to: HELEN JOLLY DNP ? Final Pathologic Diagnosis: A. GALLBLADDER, CHOLECYSTECTOMY: - ??Mild chronic cholecystitis. - ??Cholelithiasis. ?? Document reviewed and electronically signed by: NANY BECKWITH MD Report ??Date: 09/13/2018 11:22 By the signature above, the attending physician certifies that he/she has personally conducted a gross and/or microscopic examination of the described specimens and rendered or confirmed the above diagnosis. Specimen(s) Received: Cholelithiasis. Gallbladder and contents Clinical History: Biliary dyskinesia Gross Description: ? Received in formalin labelled with proper patient identification (initials S, S) and gallbladder and contents is a previously disrupted gallbladder (7.2 x 3.0 x 1.6 cm) with a segment of cystic duct (1.0 cm in length x 0.7 cm in diameter). ? The serosa is lara-reyes and bile-stained. The mucosa is green-brown and velvety and the wall is 0.1 cm in thickness. The cystic duct lumen is obstructed by multiple choleliths. The cystic duct margin is inked blue. Multiple green-black lobular choleliths are present measuring 5.4 x 4.7 x 1.5 cm in aggregate. ? Two herbicide service sales representative sections and the inked en face cystic duct margin are submitted in 1. Chris Lopes 09/09/2018 2:27 PM End of Report [facility] 09/08/2018 13:0 8 EST 09/08/2018 13:08 EST Alvin Dennison MD PATHOLOGY ORDERDelio CADE [facility] [address] [place] [address] documented in this encounter Visit Diagnoses Not on filedocumented in this encounter Care Teams Photography Spotter Relationship Specialty Start Date End Date Nicolas Dietz APRN [address] [place] [phone] PCP - General 10/01/12 09/17/20 documented as of this encounter
--- OUTSIDE RECORDS SUMMARY | 2024-02-29 16:48 | XMS_ITS | Referral Summary ---
Author Organization [facility] Address [address] [place] [address] Care Team Providers Care Vice President Quality Improvement Name Role Phone Soheila Marmolejo NP Primary Care Provider [phone] Medications Medication Sig Dispensed Refills Start Date [...] 07/24/2022 9: 07 EST Plan of Treatment Not on file Procedures Procedure Name Priority Date/Time Associated Diagnosis [...] ? SAIMA THOMAS ? Accession #: ? [id number] ? : ? 1970 (Age: 48) ??F [...] types 16,18,31,33,35, 39,45,51,52,56,58, 59,66, and 68 by gritting machine operator mediated amplification. Comments Document reviewed and electronically signed by: ? System Interface ? Report date: 01/31/2019 By the signature above, the attending physician certifies that he/she has personally conducted a gross and/or microscopic examination of the described specimens and rendered or confirmed the above diagnosis. End of Report [facility] 01/25/2019 01/26/2019 Helen Vidal DNP PATHOLOGY ORDERAB LES [facility] [address] [place] [address] from Last 3 Months or Most Recently Relevant to Health Maintenance Care Teams Vice President Quality Improvement Relationship Specialty Start Date End Date Soheila Marmolejo, FURNITURE ARRANGER [address] [place] [address] PCP - General Family Medicine - Primary Care 07/21/22
--- OUTSIDE RECORDS SUMMARY | 2024-02-29 16:48 | XMS_ITS | Encounter Summary ---
Author Organization [facility] Address [address] [place] [address] Care Team Providers Care Ski Patroller Name Role Phone Soheila Marmolejo NP Primary Care Provider [phone] Encounter Details Date Type Department Care Team (Late st Contact Info) Description 12/24/2021 Lab Requisition [facility] [place] [facility]ology & Laboratory Medicine - [address] [id number] Outr Resulting Lab, Provider Social History Tobacco Use Types Packs/Day Years [...] Procedure Name Priority Date/Time Associated Diagnosis Comments T3 FREE Routine 12/23/2021 9:30 EDT documented in this encounter Results * T3 FREE (12/23/2021 9:30 EDT) T3, Free 3.2 2.8 - 5.3 pg/mL 12/24/2021 17:49 EDT [facility] Blood VENOUS BLOOD / Unknown 12/23/2021 9:30 EDT 12/24/2021 17:09 EDT Provider Outr Resulting Lab CHEMISTRY & BLOOD GAS ORDERABLES [facility] [address] [place] [address] documented in this encounter Visit Diagnoses Not on filedocumented in this encounter Care Teams Ski Patroller Relationship Specialty Start Date End Date Soheila Marmolejo, CLARIBEL [address] [place] [address] PCP - General Family Medicine - Primary Care 07/21/22 documented as of this encounter
--- OUTSIDE RECORDS SUMMARY | 2024-02-29 16:48 | XMS_ITS | Encounter Summary ---
Author Organization [facility] Address [facility] [place] [address] Care Team Providers Care Engineering Recruiter Name Role Phone Dani Vidal STACY Primary Care Provider [phone] Reason for Visit * Reason Comments Blurred Vision Visual Disturbance * Consultation (Routine) - Closed Specialty Diagnoses / Procedures Referred By Elisabet durant Referred To Contact Ophthalmology Diagnoses Graves disease Jes Moreno MD [facility] [place] [address] Mercedes Santos MD [facility] [place] [address] Referral ID Status Reason Start Date Expiration Date V isits Requested Visits Authorized [id number] Closed Consult, Test & Treat 11/17/2018 11/17/2019 1 1 Encounter Details Date Type Department Care Team (Late st Contact Info) Description 02/07/2019 1:00 PM EDT Office Visit Ophthalmology at [place] [phone] Mercedes Santos MD [facility] [place] [address] [address], [place] Unspecified visual disturbance (Primary Dx); Visual field defect Social History Tobacco Use Types Packs/Day Years Used Date Smoking Tobacco: Never Smokeless Tobacco: Never Alcohol Use Standard Drinks/Week Comments No 0 (1 standard drink = 0.6 oz pur e alcohol) Sex and Gender Information Value Date Recorded Sex Assigned at Not on file Gender Identity Not on file Sexual Orientation Not on file documented as of this encounter Progress Notes * Mercedes Domingo MD - 02/07/2019 1:00 PM EDT Tamy Torres was diagnosed with Graves' disease in 2013, currently hypothyroid on levothyroxine. Last TSI 1.9 (11/19) She noted blurry vision in both eyes, with intermittent transient loss of vision in the left eye. On examination today, Tamy Torres has no proptosis. She exhibited normal visual function at 20/20 bilaterally, color vision, with no evidence of a relative afferent pupillary defect that would suggest an underlying optic nerve dysfunction. Static visual vasquez were unreliable and did not correspond to optic nerve appearance. Sensorimotor examination revealed full extraocular movements in each eye, with small exophoria of 1 PD. Dilated eye examination revealed normal anterior segment structures with mild cataracts. The optic nerves are healthy and pink normal maculae and peripheral retina in each eye. 1) Graves' disease, now hypothyroid - no evidence of thyroid eye disease - unreliable visual field, repeat in 4-6 months with Goldmann - Carotid dopplers ordered to assess for TVO left eye. documented in this encounter Plan of Treatment Not on file documented as of this encounter Procedures Procedure Name Priority Date/Time Associated Diagnosis Comments AUTOMATED VISUAL FIELD - EXTENDED - OU- BOTH EYES Routine 02/07/2019 3:52 PM EDT Unspecified visual disturbance FUNDUS PHOTOS - OU- BOTH EYES Routine 02/07/2019 3:47 PM EDT Unspecified visual disturbance Visual field defect OCT OPTIC NERVE - OU - BOTH EYES Routine 02/07/2019 3:47 PM EDT Visual field defect SENSORIMOTOR EXAM Routine 02/07/2019 3:4 1 PM EDT Unspecified visual disturbance documented in this encounter Results * AUTOMATED VISUAL FIELD - EXTENDED - OU- BOTH EYES (02/07/2019 3:52 PM EDT) Anatomical Region Laterality Modality Other Narrative 02/07/2019 3:52 PM EDT Right Eye Threshold was 24-2. Strategy was JESSICA. Reliability was borderline. Left Eye Threshold was 24-2. Strategy was JESSICA. Reliability was borderline. Notes Borderline reliability with left nasal depressed points- did not correspond with optic nerve appearance. Recommend repeat GVF Mercedes Santos MD OPHTHALMOLOGY SE [facility] AS ORDERABLES * FUNDUS PHOTOS - OU- BOTH EYES (02/07/2019 3:47 PM EDT) Anatomical Region Laterality Modality Other Narrative 02/07/2019 3:47 PM EDT Right Eye Disc findings include normal observations. Vessel findings include normal observations. Periphery findings include normal observations. Left Eye Disc findings include normal observations. Vessel findings include normal observations. Periphery findings include normal observations. Notes Normal discs Mercedes Santos MD OPHTHALMOLOGY SE [facility] ORDERABLES * OCT OPTIC GHEKO-CO-BDBG EYES (02/07/2019 3:47 PM EDT) Anatomical Region Laterality Modality Other Narrative 02/07/2019 3:47 PM EDT Right Eye Quality was good. Findings include normal observations. Temporal thickness was normal. Superior thickness was normal. Nasal thickness was normal. Inferior thickness was normal. Left Eye Quality was good. Findings include normal observations. Temporal thickness was normal. Superior thickness was normal. Nasal thickness was normal. Inferior thickness was normal. Notes Normal RNFL OU Mercedes Santos MD OPHTHALMOLOGY SE [facility] AS ORDERABLES * SENSORIMOTOR EXAM [NV SPECIAL EYE EXAM] - OU- BOTH EYES (02/07/2019 3:41 PM EDT) Anatomical Region Laterality Modality Other Narrative 02/07/2019 3:41 PM EDT Small exophoria of 1 PD, good stereopsis. Mercedes Santos MD OPHTHALMOLOGY SE [facility] AS ORDERABLES documented in this encounter Visit Diagnoses Diagnosis Unspecified visual disturbance- Primary Visual field defect Visual field defect, unspecified documented in this encounter Care Teams Engineering Recruiter Relationship Specialty Start Date End Date Dani Vidal DNP PCP - General Family Medicine 08/31/18 03/04/22 documented as of this encounter
--- OUTSIDE RECORDS SUMMARY | 2024-02-29 16:48 | XMS_ITS | Encounter Summary ---
Author Organization [facility] Address [address] [place] [address] Care Team Providers Care Chief Unit Forester Name Role Phone Soheila Marmolejo YARDAGE CONTROL OPERATOR Primary Care Provider [phone] Reason for Visit * Reason Comments Thyroid Problem * Referral (Routine) - Receiving Office to Obtain Authorization Specialty Diagnoses / Procedures Referred By Elisabet durant Referred To Contact Endocrinology Diagnoses Hypothyroidism, unspecified Soheila Marmolejo, YARDAGE CONTROL OPERATOR [address] [place] [address] [facility] Endocrinology [address] [place] [id number] Referral ID Status Reason Start Date Expiration Date Visits Requested Visits Authorized [id number] Receiving Office to Obtain Authorization 1 1 Encounter Details Date Type Department Care Team (Latest Contact Info) Description 07/31/2022 9:30 EST Telemedicine [facility] Endocrinology - [address] [address] Deanna Minor NP [address] [facility] [address] [place] [address] Hypothyroidism, postablative (Primary Dx); Neck swelling Social History Tobacco Use Types Packs/Day Years Used Date Smoking Tobacco: Never Assessed Interpersonal Safety Answer Date Record ed Physically Hurt Never 03/04/2020 Verbally Threaten Not on file 03/04/2020 Sex and Gender Information Value Date Recorded Sex Assigned at Female 07/24/2022 9:07 EST Gender Identity Female 07/24/2022 9:07 EST Sexual Orientation Straight 07/24/2022 9: 07 EST documented as of this encounter Progress Notes * Deanna Minor NP - 07/31/2022 0930 EST TELEMEDICINE VIDEO VISIT Today's visit was provided through telemedicine video conferencing: I have reviewed the appropriateness of using video technology with the patient with regards to today's visit. The location of the patient : Home Patient location state: Visit Location State: [place] The location of the provider: Clinic, [facility] Office Provider location state: Visit Location State: [place] The following people and their roles were present for today's visit: Appointment Provider: Deanna Minor NP Laurie M Davignon, NP The concept of ???Telemedicine?? has been described to the patient.? Patient has been informed of the anticipated benefits and possible risks.? Patient understands the information provided regardingtelemedicine, has had the opportunity to ask questions about this information, and all questions have been answered to patient???s satisfaction. Patient consents for the use of telemedicine in his/her medical care and authorizes the transmission of any relevant medical information to providers and their staff involved in patient???s medical or mental health care. Patient understands that they maybe responsible for copays, deductible or coinsurance for this service. Endocrinology Thyroid Evaluation 07/31/2022 HPI: Tamy Sena is a 52 y.o. 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 She was living in [place] at the time, when she had ablation. She states she had a very rough time with this, Pt is taking synthroid 175mcg daily Reports compliant with medicine each AM alone Tamy Sena reports the following She states her face shape changes, has periods when her hair and eye brows fall out. She states that she is sick and tired of her varied levels, she states she feels unwell. She states she can only eat beef, pork, veggies except for potato and tomato, she can have fruit. She is not able to eat chicken it causes her to swell. 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 She is quite active. She states that she had DKA 09/2021, she states she was having difficulty seeing out of right eye saw eye doctor in 08/2021, maybe having Mini strokes, but in 09/15/2021 she states she could not get out of bed, was seen at Urgent care was told of BG 600, prior to that she had been told in 2017 she had prediabetes at time of gall bladder problems, she had cholecystectomy and this then resolved. Shestates she had 2 years of oral infections r/t abscesses. She states she has facial issues was not able to form words after dental extractions states these effected the nerves in her mouth and sometimes she has difficulty forming words (she states she had CTScan) no stroke noted. She has been seen by neurology. She suffers from fibromyalgia, feels this effects her memory as well. Review of Systems: SYMPTOM YES or NO Excess perspiration, dry skin, hair loss yes Changes in eyes (vision, prominence, double vision, puffiness) Yes Choking sensation, difficulty swallowing, cough, hoarseness No Heat or cold intolerance No Mood swings, depression, irritability No Diarrhea, constipation, polydefication IBS Enlargement of neck yes Tremor, jitteriness No Fatique yes Family planning No Menses: No Palpitations, tachycardia No Change in sleeping habits yes Smoking No Weight change No Prior studies/tests include Prior Thyroid Labs: TSH: varied and Prior Thyroid Imaging: thyroid ultrasound many years ago. Physical Exam: There were no vitals taken for this visit. General: alert, cooperative, no distress, appears stated age Eyes: no lid lag, periorbital edema, stare, proptosis or exophthalamus. EOM full. Neck: no thyroidectomy scar Thyroid: Extremities: Skin: Neuro: LAB REVIEW: No results found for: TSH Lab Results Component Value Date [id number] 02/08/2021 No results found for: FREET3 No results found for: T7UKAFS No results found for: FREET4 No results found for: THGAB No results found for: THYROIDAB Assessment: Tamy was seen today for thyroid problem. Diagnoses and all orders for this visit: Hypothyroidism, postablative - THYROID CASCADE; Future - THYROPEROXIDASE ANTIBODY; Future Neck swelling - US THYROID/NECK; Future Other orders - metFORMIN (FORTAMET) 500 mg ER tablet; Take 1,000 mg by mouth daily. - levothyroxine (SYNTHROID) 175 mcg tablet; Take 175 mcg by mouth daily. No problem-specific Assessment & Plan notes found for this encounter. Treatment Plan: 1. Will get labs and thyroid US for reported swelling of neck at times 2. Medications: LT4 175mcg pending labs 3. The risks and benefits of my recommendations, as well as other treatment options were discussed with the patient today. Questions were answered. 4. Follow up: 6 months and as needed. I spent a total of 55 minutes on the date of this encounter meeting with the patient and reviewing documentation/coordinating care as described in the above note. No procedures were performed at the time of the visit. Deanna Minor NP 07/31/2022 9:32 documented in this encounter Plan of Treatment Not on file documented as of this encounter Visit Diagnoses Diagnosis Hypothyroidism, postablative- Primary Other postablative hypothyroidism Neck swelling Swelling, mass, or lump in head and neck documented in this encounter Historical Medications * This list may reflect changes made after this encounter. Medication Sig Dispensed Refills Start Date End Date levothyroxine (SYNTHROID) 175 mcg tablet Take 175 mcg by mouth daily. metFORMIN (FORTAMET) 500 mg ER tablet Take 1,000 mg by mouth daily. added in this encounter Care Teams Chief Unit Forester Relationship Specialty Start Date End Date Soheila Marmolejo NP [address] [place] [address] PCP - General Family Medicine - Primary Care 07/21/22 documented as of this encounter
--- OUTSIDE RECORDS SUMMARY | 2024-02-29 16:48 | XMS_ITS | Encounter Summary ---
Author Organization [facility] Address [address] [place] [address] Care Team Providers Care Tablet Technician Name Role Phone Nicolas Dietz PELON Primary Care Provider [phone] Encounter Details Date Type Department Care Team (Late st Contact Info) Description 01/25/2019 Results Only [facility] [phone] Helen Ramirez, DNP [address] [place] [address] Social History Tobacco Use Types Packs/Day Years [...] TEST- RESULT ONLY Routine 01/25/2019 0:00 EDT documented in this encounter Results * PAP TEST- RESULT ONLY (01/25/2019 0:00 EDT) Pathology Report: CYTOPATHOLOGY REPORT Reports generated via electronic interface contain original data; however they are lacking the format of the original report. Caution should be taken when reading/interpreti ng unformatted reports. Name: ? TAMY THOMAS ? Accession #: ? [id number] ? : ? 1970 (Age: 48) ??F [...] types 16,18,31,33,35, 39,45,51,52,56,58, 59,66, and 68 by deaf and hard of hearing teacher mediated amplification. Comments Document reviewed and electronically signed by: ? System Interface ? Report date: 01/31/2019 By the signature above, the attending physician certifies that he/she has personally conducted a gross and/or microscopic examination of the described specimens and rendered or confirmed the above diagnosis. End of Report [facility] 01/25/2019 01/26/2019 Helen Vidal DNP PATHOLOGY ORDERAB LES [facility] [address] [place] [address] documented in this encounter Visit Diagnoses Not on filedocumented in this encounter Care Teams Tablet Technician Relationship Specialty Start Date End Date Nicolas Dietz APRN [address] [place] [phone] PCP - General 10/01/12 09/17/20 documented as of this encounter
--- OUTSIDE RECORDS SUMMARY | 2024-02-29 16:48 | XMS_ITS | Encounter Summary ---
Author Organization [facility] [address] Care Team Providers Care Flow Floor Attendant Name Role Phone Unknown Primary Care Provider Unavailabl e Encounter Details Date Type Department Care Team (Late st Contact Info) Description 12/26/2011 1:00 PM EDT Office Visit Obstetrics [place] [address] Kimmy David MD [facility] [address] OBSTETRICS & [place] [address] Anemia (Primary Dx) Social History Tobacco Use Types Packs/Day Years [...] Progress Notes * Kimmy David MD - 01/06/2012 4:51 PM EDT US only documented in this encounter Plan of Treatment Not on file documented as of this encounter Visit Diagnoses Diagnosis Anemia- Primary Anemia, unspecified documented in this encounter Care Teams Flow Floor Attendant Relationship Specialty Start Date End Date Unknown None PCP - General 06/25/10 01/01/12 documented as of this encounter
--- OUTSIDE RECORDS SUMMARY | 2024-02-29 16:48 | XMS_ITS | Encounter Summary ---
Author Organization [facility] Address [address] [place] [address] Care Team Providers Care Apparel Sales Leader Name Role Phone Unavailable Primary Care Provider Unavailabl e Encounter Details Date Type Department Care Team (Late st Contact Info) Description 10/16/2011 Results Only [facility] - [facility] [address] [place], [place] [phone] Daily Limon MD [address] [place], [place] [phone] Social History Tobacco Use Types Packs/Day Years [...] Diagnosis Comments PAP TEST- RESULT ONLY Routine 10/16/2011 0:00 EDT documented in this encounter Results * PAP TEST- RESULT ONLY (10/16/2011 0:00 EDT) Pathology Report: CYTOPATHOLOGY REPORT Reports generated via electronic interface contain original data; however they are lacking the format of the original report. Caution should be taken when reading/interpreti ng unformatted reports. Name: ? SAIMA THOMAS ? Accession #: ? [id number] : ? 1970 (Age: 41) ??F ?Collect Date: ? 10/16/2011 Location: ? [facility] ? Receive Date: ? 10/20/2011 Provider: ?DAILY LIMON MD Copy to: ? Specimen/Source: ?Pap Test, Cervix/Endocervix, ThinPrep Imaging System with manual evaluation Last Menstrual Period: ? 08/15/11 Hormonal/Contracep tive Status: ? Tubal ligation: BTL 1991 ? SPECIMEN ADEQUACY ? Satisfactory for Evaluation - transformation zone component present GENERAL CATEGORIZATION ? Negative for Intraepithelial Lesion or Malignancy ? Document reviewed and electronically signed by: ? BLANCA Farias(ASCP) ? Report Date: ??10/21/2011 13:51 End of Report [facility] 10/16/2011 10/20/2011 Daily Limon MD PATHOLOGY ORDERABLE S [facility] ESPINOS[facility] [address] [place] [address] documented in this encounter Visit Diagnoses Not on filedocumented in this encounter
--- OUTSIDE RECORDS SUMMARY | 2024-02-29 16:48 | XMS_ITS | Encounter Summary ---
Author Organization [facility] [place] [address] Care Team Providers Care Winter Intern Name Role Phone MarcyDani ferguson STACY Primary Care Provider [phone] Reason for Visit * Reason Comments Visual Disturbance Encounter Details Date Type Department Care Team (Late st Contact Info) Description 06/13/2019 2:45 PM EST Office [place] [address] Mercedes Santos MD [facility] [place] [address] [place], [place] Unspecified visual disturbance; Visual field defect Social History Tobacco Use [...] Progress Notes * Mercedes Domingo MD - 06/13/2019 2:45 PM EST Tamy Torres was diagnosed with Graves' disease in 2013, currently hypothyroid on levothyroxine. Last TSI 1.9 (11/19) She noted blurry vision in both eyes, with blurring of the left vision. On examination on 02/07/19, Tamy Torres has no proptosis. She exhibited [...] maculae and peripheral retina in each eye. Today, she has no proptosis. She measures 20/15 in each eye, full color vision, and no RAPD. Sensorimotor examination revealed full extraocular movements in each eye, with small exophoria of 1 PD. Eye examination today was unremarkable, apart from mild dry eyes. 1) Graves' disease, now hypothyroid - no evidence of thyroid eye disease. She is a non-smoker - Full visual vasquez today, with normal optic nerves. - Fluctuating vision in the left eye, likely secondary to dry eyes. Advised to use preservative free artificial tears, four to six times a day, as well as lubricating ointment at night. - with Dr. Ryan in 1 year for Navin BONILLA, have performed the documentation for this encounter in the presence of and acting as a scribe for Mercedes Domingo MD. I performed the services which were documented by the scribe, and I agree with the accuracy of the documentation in this encounter. ?? Mercedes Domingo MD documented in this encounter Plan of Treatment Not on file documented as of this encounter Procedures Procedure Name Priority Date/Time Associated Diagnosis Comments OCT OPTIC NERVE - OU - BOTH EYES Routine 06/13/2019 3:37 PM EST Visual field defect AUTOMATED VISUAL FIELD - EXTENDED - OU- BOTH EYES Routine 06/13/2019 3:21 PM EST Unspecified visual disturbance SENSORIMOTOR EXAM Routine 06/13/2019 3:1 9 PM EST Unspecified visual disturbance documented in this encounter Results * OCT OPTIC [id number] EYES (06/13/2019 3:37 PM EST) Anatomical Region Laterality Modality Other Narrative 06/13/2019 3:37 PM EST Right Eye Quality was good. Findings include normal observations. Temporal thickness was normal. Superior thickness was normal. Nasal thickness was normal. Inferior thickness was normal. Left Eye Quality was good. Findings include normal observations. Temporal thickness was normal. Superior thickness was normal. Nasal thickness was normal. Inferior thickness was normal. Notes Normal RNFL OU Mercedes Santos MD OPHTHALMOLOGY SE RVICES ORDERABLES * AUTOMATED VISUAL FIELD - EXTENDED - OU- BOTH EYES (06/13/2019 3:21 PM EST) Anatomical Region Laterality Modality Other Narrative 06/13/2019 3:21 PM EST Small exophoria of 1 PD in downgaze. Mercedes Santos MD OPHTHALMOLOGY SE RVPoptip ORDERABLES * SENSORIMOTOR EXAM [OK SPECIAL EYE EXAM] - OU- BOTH EYES (06/13/2019 3:19 PM EST) Anatomical Region Laterality Modality Other Narrative 06/13/2019 3:19 PM EST Orthotropic in all directions of gaze Small exophoria of 1 PD in downgaze. Mercedes Santos MD OPHTHALMOLOGY SE RVPoptip ORDERABLES documented in this encounter Visit Diagnoses Diagnosis Unspecified visual disturbance Visual field defect Visual field defect, unspecified documented in this encounter Care Teams Winter Intern Relationship Specialty Start Date End Date Dani Vidal DNP PCP - General Family Medicine 08/31/18 03/04/22 documented as of this encounter
--- OUTSIDE RECORDS SUMMARY | 2024-02-29 16:48 | XMS_ITS | Encounter Summary ---
Author Organization [facility] Address [facility] [place] [address] Care Team Providers Care Web Development Instructor Name Role Phone Dani Vidal DNP Primary Care Provider [phone] Reason for Visit * Consultation (Routine) - Specialty Diagnoses / Procedures Referred By Elisabet durant Referred To Contact General Surgery Diagnoses BETA THALASSEMIA, HERNIA Dani Vidal, STACY [address] [place] [address] [facility] Gen Surgery [address] [place] [address] Referral ID Status Reason Start Date Expiration Date V isits Requested Visits Authorized [id number] Consult, Test & Treat Connection [facility] 08/31/2018 08/31/2019 6 6 Encounter Details Date Type Department Care Team (Late st Contact Info) Description 12/28/2018 1:00 PM EDT Office Visit [place] [phone] Jordana Henning MD [facility] [place] [address] Splenomegaly Social History Tobacco Use Types Packs/Day [...] Pulse 91 12/28/2018 1:10 PM EDT Temperature - - Respiratory Rate 18 12/28/2018 1:10 PM EDT Oxygen Saturation 100% 12/28/2018 1:10 PM EDT Inhaled Oxygen Concentration - - Weight 111.7 kg (246 lb 3.2 oz) 12/28/2018 1:10 PM EDT Height 171.5 cm (5' 7.5) 12/28/2018 1:10 PM EDT Body Mass Index 37.99 12/28/2018 1:10 PM EDT documented in this encounter Progress Notes * Jordana Henning MD - 12/28/2018 1:00 PM EDT Tamy Torres is a 48-year-old woman referred in consultation by Dani Vidal APRN for evaluation and possible treatment for splenomegaly. Her history is actually well-documented in her recent visit with the heme-onc service. She has a history of beta thalassemia trait and recently experienced issues with persistent diarrhea and was found to have abnormalities in her liver function tests and borderline diabetes. A CAT scan performed in June 2018 revealed cholelithiasis hepatic steatosis and some anh prominence in her upper abdomen and the yemi-pancreatic, yemi-portal, and periaortic as well as paracaval locations. She was also noted to have splenomegaly. She subsequently went on to have cholecystectomy. She is referred for evaluation of this lymphadenectomy and splenic splenomegaly however since the referral she has had a new CAT scan on 12/22/2018 which revealed no findings of lymphadenopathy and only some mild hepatosplenomegaly consistent with fatty infiltration most likely. She has lost some weight and is overall feeling better but I reassured her that at this time thereis no role for any surgical intervention or biopsy. Past Medical History: Diagnosis Date ??? Bipolar [...] possible laparoscopic two years after of child Lap cholecystectomy sep 2018 Patient Active Problem List Diagnosis Code ??? Thalassemia trait, beta D56.3 ??? Obesity (BMI 35.0-39.9 without comorbidity) E66.9 ??? Hyperlipidemia E78.5 ??? Bipolar affective disorder F31.9 ??? PTSD (post-traumatic stress disorder) F43.10 ??? Splenomegaly R16.1 Current Outpatient Medications on File Prior to Visit Medication Sig Dispense Refill ??? ergocalciferol, vitamin D2, (VITAMIN D ORAL) Take 400 Units by mouth. ??? biotin 300 mcg Tablet Take 10,000 mcg by mouth. ??? selenium 50 mcg Tablet Take 200 mcg by mouth. ??? zinc sulfate (ZINCATE) 220 (50) mg Capsule Take 220 mg by mouth daily. ??? ascorbic acid (VITAMIN C ORAL) Take by mouth daily. ??? VITAMIN B COMPLEX ORAL Take by mouth. LIQUID DAILY ??? MAGNESIUM ORAL Take 250 mg by mouth daily. ??? MILK THISTLE ORAL Take 175 mg by mouth daily. ??? OMEGA-3 FATTY ACIDS-EPA ORAL Take by mouth daily. ??? levothyroxine (SYNTHROID) 175 mcg Tablet Take 175 mcg by mouth daily. Brand name Synthroid only. ??? omeprazole (PRILOSEC) 40 mg Capsule, Delayed Release(E.C.) Take 40 mg by mouth daily. No current facility-administered medications on file prior to visit. Allergies Allergen Reactions ??? Pcn [Penicillins] Anaphylaxis ??? Narcotic Antagonist Itching and Rash Family History Problem Relation Age of Onset [...] on phone: None Gets together: None Attends advent service: None Active member of club or [...] bipolar. Hospitalized 13 days years ago in [place]. She describes her symptoms from her bipolar as well controlled. Her anemia is limiting her ability to work. As mentioned above I do not see any role for surgical intervention since her lymphadenopathy seems to have resolved and her hepatosplenomegaly appears to be more likely from some fatty infiltration. I will therefore leave her follow-up on a as needed basis if hematology feels anything else developsthat requires intervention. Total visit duration was 30 minutes with over 20 minutes spent in face to face discussion with the patient. documented in this encounter Plan of Treatment Not on file documented as of this encounter Visit Diagnoses Diagnosis Splenomegaly documented in this encounter Care Teams Web Development Instructor Relationship Specialty Start Date End Date Dani Vidal DNP PCP - General Family Medicine 08/31/18 03/04/22 documented as of this encounter
--- OUTSIDE RECORDS SUMMARY | 2024-02-29 16:48 | XMS_ITS | Encounter Summary ---
Author Organization [facility] Address [address] [place] [address] Care Team Providers Care Transportation Services Representative Name Role Phone Soheila Marmolejo RENTAL CAR PORTER Primary Care Provider [phone] Reason for Visit * Reason Onset Date Comments Appointment Related 09/22/2022 Encounter Details Date Type Department Care Team (Late st Contact Info) Description 09/22/2022 Telephone [facility] Endocrinology - [facility] [address] [place] [address] Deanna Minor NP [address] [facility] [address] [place] [address] Appointment Related Social History Tobacco Use Types Packs/Day Years Used Date Smoking Tobacco: Never Assessed Interpersonal Safety Answer Date Record ed Physically Hurt Never 03/04/2020 Verbally Threaten Not on file 03/04/2020 Sex and Gender Information Value Date Recorded Sex Assigned at Female 07/24/2022 9:07 EST Gender Identity Female 07/24/2022 9:07 EST Sexual Orientation Straight 07/24/2022 9: 07 EST documented as of this encounter Miscellaneous Notes * Telephone Encounter - Sanjana Fiore - 09/22/2022 1219 EST Left voicemail to schedule Follow Up appointment with Deanna Minor Patient is due anytime after 01/30/23 Recall Letter Sent documented in this encounter Plan of Treatment Not on file documented as of this encounter Visit Diagnoses Not on filedocumented in this encounter Care Teams Transportation Services Representative Relationship Specialty Start Date End Date Soheila Marmolejo, CLARIBEL [address] [place] [address] PCP - General Family Medicine - Primary Care 07/21/22 documented as of this encounter
--- OUTSIDE RECORDS SUMMARY | 2024-02-29 16:48 | XMS_ITS | Encounter Summary ---
Author Organization [facility] Address [facility] [place] [address] Care Team Providers Care Asset Protection Lead Name Role Phone Nicolas Dietz APRN Primary Care Provider [phone] Reason for Visit * Reason Comments Iron Deficiency Encounter Details Date Type Department Care Team (Latest Contact Info) Description 01/16/2012 7:46 AM EDT - 01/16/2012 11:59 PM EDT Hospital Encounter Hematology [place] [address] INFUSION THERAPY, MEDS None Erick Allred MD [facility] HEMATOLOGY [place] [address] Iron deficiency anemia Discharge Disposition: Home Social [...] Sign Reading Time Taken Comments Blood Pressure 116/64 01/16/2012 11:06 AM EDT Pulse 67 01/16/2012 11:06 AM EDT Temperature 36.5 ??C (97.7 ??F) 01/16/2012 11:06 AM E DT Respiratory Rate 16 01/16/2012 11:06 AM EDT Oxygen Saturation 100% 01/16/2012 11:06 AM EDT Inhaled Oxygen Concentration - - [...] as of this encounter Progress Notes * Mary Fiore RN - 01/16/2012 8:35 AM EDT TIME TREATMENT STARTED: 814 TIME TREATMENT ENDED: 111 Tamy Torres, 41 y.o. female with diagnosis of CORA is here for an infusion of Venofer. WEEK: 2 S: My doctor said to tell you that my hemoglobin is up to 10 and I have a heart murmur. O: Chemotherapy orders independently verified for drug name, route and dosage per patient's height,weight and BSA by on site pharmacist and Mary Fiore RN. Peripheral IV placed Tylenol 650 mg PO Benadryl 25 mg PO Venofer 300 mg IV REACTIONS (DESCRIPTION, TIME, INTERVENTION AND EFFECTIVENESS) none A: Pt. Tolerated treatment well. Tamy Torres confirms that all questions and issues have beenaddressed. P: Return to clinic per routine. documented in [...] 650 mg, Oral, ONCE, 1 dose, On Thu01/16/12 at 0845, Maximum dose of acetaminophen is 4000 mg from all sources in 24 hours., Routine Given 01/16/2012 8:33 AM EDT 650 mg diphenhydrAMINE (BENADRYL) tablet 25 mg 25 mg, Oral, ONCE, 1 dose, On Thu01/16/12 at 0845, Routine Given 01/16/2012 8:33 AM EDT 25 mg iron sucrose (VENOFER) 300 mg in sodium chloride 0.9% 265 mL 300 mg, Intravenous, ONCE, 1 dose, On Thu01/16/12 at 0830, Administer over 120 Minutes Given 01/16/2012 9:05 AM EDT 300 mg 132.5 mL/hr documented in this encounter Care Teams Asset Protection Lead Relationship Specialty Start Date End Date Nicolas Dietz, BASE MANAGER PCP - General 01/09/12 08/30/18 documented as of this encounter
--- OUTSIDE RECORDS SUMMARY | 2024-02-29 16:48 | XMS_ITS | Encounter Summary ---
Author Organization [facility] [place] [address] Care Team Providers Care Big 6 Dealer Name Role Phone Dani Vidal DNP Primary Care Provider Encounter Details Date Type Department Care Team (Late st Contact Info) Description 12/17/2018 Orders Only Hematology [place] [address] Shaylee John Social History Tobacco Use Types Packs/Day Years [...] on filedocumented in this encounter Care Teams Big 6 Dealer Relationship Specialty Start Date End Date Dani Vidal DNP PCP - General Family Medicine 08/31/18 03/04/22 documented as of this encounter
--- OUTSIDE RECORDS SUMMARY | 2024-02-29 16:48 | XMS_ITS | Encounter Summary ---
Author Organization [facility] Address [address] [place] [address] Care Team Providers Care Production Line Assembler Name Role Phone Soheila Marmolejo NP Primary Care Provider [phone] Encounter Details Date Type Department Care Team (Late st Contact Info) Description 02/09/2021 Lab Requisition [facility] Pathology & Laboratory Medicine - [address] [address] Outr Resulting Lab, Provider Social History Tobacco [...] Date/Time Associated Diagnosis Comments T3 FREE Routine 02/08/2021 15:00 EDT T3, TOTAL Routine 02/08/2021 15:00 EDT documented in this encounter Results * (ABNORMAL) T3 FREE (02/08/2021 15:00 EDT) T3, Free 2.3(L) 2.8 - 5.3 pg/mL 02/09/2021 22:51 EDT [facility] Blood VENOUS BLOOD / Unknown 02/08/2021 15:00 EDT 02/09/2021 22:16 EDT Provider Outr Resulting Lab CHEMISTRY & BLOOD GAS ORDERABLES Performing Organization Address City/[facility]/ZIP Co de Phone Number [facility] [address] [place] [address] * T3, TOTAL (02/08/2021 15:00 EDT) T3, Total 109 97 - 169 ng/dL 02/09/2021 23:05 EDT [facility] Blood VENOUS BLOOD / Unknown 02/08/2021 15:00 EDT 02/09/2021 22:16 EDT Provider Outr Resulting Lab CHEMISTRY & BLOOD GAS ORDERABLES Performing Organization Address [facility] Co de Phone Number [facility] [address] [place] [address] documented in this encounter Visit Diagnoses Not on filedocumented in this encounter Care Teams Production Line Assembler Relationship Specialty Start Date End Date Soheila Marmolejo, CLARIBEL [address] [place] [address] PCP - General Family Medicine - Primary Care 07/21/22 documented as of this encounter
--- OUTSIDE RECORDS SUMMARY | 2024-02-29 16:48 | XMS_ITS | Encounter Summary ---
Author Organization [facility] Address [facility] [place] [address] Care Team Providers Care Border Inspector Name Role Phone MarcyDani ferguson STACY Primary Care Provider [phone] Reason for Referral * Diagnostic Test (Routine) - Closed Specialty Diagnoses / Procedures Referred By Contac t Referred To Contact Radiology Diagnoses Splenomegaly Procedures CT Chest Abdomen Pelvis w Contrast (Generic) Tim Rodríguez MD [facility] DR HEMATOLOGY/[place] [address] [facility] [place] [address] Referral ID Status Reason Start Date Expiration Date V isits Requested Visits Authorized [id number] Closed Specialty Service Requested 12/16/2018 12/16/2019 1 1 Reason for Visit * Diagnostic Test (Routine) - Closed Specialty Diagnoses / Procedures Referred By Contac t Referred To Contact Radiology Diagnoses Splenomegaly Procedures CT Chest Abdomen Pelvis w Contrast (Generic) Tim Rodríguez MD [facility] HEMATOLOGY/[place] [address] [facility] [place] [address] Referral ID Status Reason Start Date Expiration Date V isits Requested Visits Authorized [id number] Closed Specialty Service Requested 12/16/2018 12/16/2019 1 1 Encounter Details Date Type Department Care Team (Latest Contact Info) Description 12/22/2018 2:18 PM EDT - 12/22/2018 11:59 PM EDT Hospital Encounter CT Scan at [facility] [place] [address] Erick Allred MD [facility] DR HEMATOLOGY [place] [address] Splenomegaly Discharge Disposition: Home Social History Tobacco Use [...] Procedure Name Priority Date/Time Associated Diagnosis Comments CT CHEST ABDOMEN PELVIS W CONTRAST (GENERIC) Routine 12/22/2018 5:32 PM EDT Splenomegaly documented in this encounter Results * CT Chest Abdomen [...] below. Erick Allred MD IMG CT ORDERABLES documented in this encounter Visit Diagnoses Diagnosis Splenomegaly documented in this encounter Administered Medications Inactive Administered Medications - up to 3 most recent administrations Medication Order MAR Action Action Date Dose Rate Site iohexol (OMNIPAQUE) 350 mg/mL solution 0-200 mL 0-200 mL, Intravenous, ONCE PRN, 1 dose, Starting on Thu12/22/18 at 1733, Until Thu12/22/18 at 1733, Per Protocol, Warning Vesicant/Irritant Medication , Radiology Contrast, Routine Given 12/22/2018 5:33 PM EDT 120 mLs documented in this encounter Care Teams Border Inspector Relationship Specialty Start Date End Date Dani Vidal DNP PCP - General Family Medicine 08/31/18 03/04/22 documented as of this encounter
--- OUTSIDE RECORDS SUMMARY | 2024-02-29 16:48 | XMS_ITS | Encounter Summary ---
Author Organization [facility] Address [facility] [place] [address] Care Team Providers Care Tea Taster Name Role Phone J Luis Kishaarline Obinna BIRD Primary Care Provider Encounter Details Date Type Department Care Team (Late st Contact Info) Description 01/13/2012 Telephone Hematology [place] [phone] Gin Eason MD [facility] DR HEMATOLOGY/[place] [address] Social History Tobacco Use Types Packs/Day Years [...] Miscellaneous Notes * Telephone Encounter - Gin Eason MD - 01/13/2012 2:25 PM EDT I received a phone call from an DIRECTOR OF QUANTITATIVE RESEARCH who is seeing Ms. Olguin today. She last had an Iron infusion on Thursday, and has been seen here by Dr. Allred for thalassemia and iron deficiency anemia. Thepatient's hemoglobin on January 01 was 9.9, and she has a history of iron deficiency secondary to menorrhagia. Ferritin on January 01 was 21. Today Jacquelines hgb is 7.5 and she is feeling fatigued. There is no report of menstrual bleeding or other source of blood loss since the Nasra 1st labs. The test was done on a fingerstick instrument. The DIRECTOR OF QUANTITATIVE RESEARCH was calling to ask about the possibility of giving her a blood transfusion for symptomatic anemia. We discussed the following plan: Repeat a full CBC with a venous stick. If hemoglobin is similar to above, transfusion would be reasonable if she is truly symptomatic. With iron replacement and without obvious blood loss she should be able to keep her hemoglobin relatively stable, so it is not clear to me why her anemia has worsened so quickly. She may need furtherevaluation for bleeding. The patient is scheduled to be seen here later this week. documented in this encounter Plan of Treatment Not on file documented as of this encounter Visit Diagnoses Not on filedocumented in this encounter Care Teams Tea Taster Relationship Specialty Start Date End Date Nicolas Dietz APRN PCP - General 01/09/12 08/30/18 documented as of this encounter
--- OUTSIDE RECORDS SUMMARY | 2024-02-29 16:48 | XMS_ITS | Encounter Summary ---
Author Organization [facility] Address [address] [place] [address] Care Team Providers Care Septic Pump Truck Driver Name Role Phone Soheila Marmolejo NP Primary Care Provider [phone] Encounter Details Date Type Department Care Team (Late st Contact Info) Description 12/26/2021 Lab Requisition [facility] Pathology & Laboratory Medicine - [address] [id number] Outr Resulting Lab, Provider Social History Tobacco [...] Procedure Name Priority Date/Time Associated Diagnosis Comments CORTISOL Routine 12/26/2021 8:00 EDT documented in this encounter Results * CORTISOL (12/26/2021 8:00 EDT) Cortisol 12 See Note ug/dL 12/26/2021 22:[address] [facility] Comment: NOTE: Reference Ranges (from OCD IFU): Collected Before 10:00 AM: ??4 - 23 ug/dL Collected After 5:00 PM: ?2 - 14 ug/dL The results of this assay can be falsely elevated due to the consumption of Biotin. Blood VENOUS BLOOD / Unknown 12/26/2021 8:00 EDT 12/26/2021 21:35 EDT Provider Outr Resulting Lab CHEMISTRY & BLOOD GAS ORDERABLES [facility] [address] [place] [address] documented in this encounter Visit Diagnoses Not on filedocumented in this encounter Care Teams Septic Pump Truck Driver Relationship Specialty Start Date End Date Soheila Marmolejo, CLARIBEL [address] [place] [address] PCP - General Family Medicine - Primary Care 07/21/22 documented as of this encounter
--- OUTSIDE RECORDS SUMMARY | 2024-02-29 16:48 | XMS_ITS | Encounter Summary ---
Author Organization [facility] Address [address] [place] [address] Care Team Providers Care Die Cut Operator Name Role Phone Soheila Marmolejo NP Primary Care Provider [phone] Encounter Details Date Type Department Care Team (Late st Contact Info) Description 11/20/2021 Lab Requisition [facility] Pathology & Laboratory Medicine - [address] [id number] Outr Resulting Lab, Provider Social History Tobacco [...] Date/Time Associated Diagnosis Comments T3 FREE Routine 11/19/2021 15:00 EDT documented in this encounter Results * T3 FREE (11/19/2021 15:00 EDT) T3, Free 4.1 2.8 - 5.3 pg/mL 11/20/2021 17:20 EDT [facility] Blood VENOUS BLOOD / Unknown 11/19/2021 15:00 EDT 11/20/2021 16:35 EDT Provider Outr Resulting Lab CHEMISTRY & BLOOD GAS ORDERABLES [facility] [address] [place] [address] documented in this encounter Visit Diagnoses Not on filedocumented in this encounter Care Teams Die Cut Operator Relationship Specialty Start Date End Date Soheila Marmolejo, CLARIBEL [address] [place] [address] PCP - General Family Medicine - Primary Care 07/21/22 documented as of this encounter
[2024-02-29 19:06] LABS: Abs Immature Grans 0.05 10^3/uL (0.0-0.06); Absolute Basophil Count 0.12 10^3/uL (0.0-0.2); Absolute Eosinophil Count 0.25 10^3/uL (0.0-0.7); Absolute Lymphocyte Count 3.94 10^3/uL (1.2-3.4); Absolute Monocyte Count 1.01 10^3/uL (0.1-0.8); Absolute Neutrophil Count 8.27 10^3/uL (1.2-6.7); Basophils % 0.9 %; Eosinophils % 1.8 %; HGB 13.5 g/dL (11.2-15.7); Immature Grans % 0.4 %; Lymphocytes % 28.9 %; MCH 20.4 pg (27.0-33.0); MCHC 30.7 % (32.0-36.0); MCV 67 fL (80-95); MPV 11.4 fL (8.0-11.0); Monocytes % 7.4 %; Neutrophils % 60.6 %; Platelet Count 397 10^3/uL (130-400); RBC 6.61 10^6/uL (3.93-5.22); RDW 17.2 % (11.7-14.6); RDW-SD 35.2 fL; WBC 13.64 10^3/uL (4.4-10.8)
[2024-02-29 19:35] LABS: ALT 26 U/L (14-59); AST 30 U/L (15-37); Albumin 3.8 g/dL (3.4-5.0); Alkaline Phosphatase 105 U/L (46-116); Anion Gap 14.1 mmol/L (3-11); BUN 14 mg/dL (7-18); CO2 21.9 mmol/L (21.0-32.0); CREATININE 1.2 mg/dL (0.55-1.02); Calcium 9.3 mg/dL (8.5-10.1); Chloride 104 mmol/L (98-107); Estimated GFR 54.13 (mL/min/1.73m2); Glucose 115 mg/dL (74-106); Potassium 4.4 mmol/L (3.5-5.1); Sodium 140 mmol/L (136-145); TSH (W/Ref FT4) 35.79 uIU/mL (0.36-3.74); Total Protein 8.6 g/dL (6.4-8.2)
[2024-02-29 19:43] LABS: Anisocytosis 1+; Diff Comment RBC Morph Reviewed; Hypochromasia 1+; Microcytosis 2+
[2024-02-29 19:49] LABS: Hemoglobin A1C 7.7 % (<5.7)
[2024-02-29 20:20] LABS: FREE T4 0.91 ng/dL (0.76-1.46)
== END 2024-02-29 16:34 | disposition home or self-care (01) ==
LOC: NCHCN 16:33
PROVIDERS: PCP Nurse Practitioner Family; Visit Provider Nurse Practitioner Family
DX: D56.3 Thalassemia minor (principal); E11.9 Type 2 diabetes mellitus without complications; E03.9 Hypothyroidism, unspecified
CPT/HCPCS: 80053; 83036; 84439; 84443; 85025

== ENCOUNTER 2025-05-02 08:48 | Emergency (ER) | payer MEDICARE, MEDICAID, SELFPAY ==
[2025-05-02 08:54] VITALS: BP 137/83; PULSE 98; RESP 16; TEMP 36.4; O2SAT 98
[2025-05-02 08:56] VITALS: BP 137/83; PULSE 98; RESP 16; TEMP 36.4; O2SAT 98
--- NOTE | 2025-05-02 09:00 | DI.CT_ITS ---
Exam(s) CT ABDOMEN PELVIS W EXAM: CT ABDOMEN PELVIS W CLINICAL HISTORY: left flank pain, hematuria. TECHNIQUE: Imaging Protocol: Axial computed tomography images with coronal and sagittal reformatted images were created and reviewed CONTRAST MATERIAL: Intravenous: Omnipaque-350 100cc Oral: None COMPARISON: CT CT CHEST/ABD/PEL WO from 02/07/2023 FINDINGS: VISUALIZED LUNG BASES: No nodules nor pleural effusions evident. ABDOMEN: There is no ascites. LIVER: Liver again noted be hypodense implying steatosis. There no discrete focal hepatic lesions evident. No dilated intrahepatic ducts. GALLBLADDER/BILIARY: The gallbladder is again noted to be surgically absent. CBD is not dilated. PANCREAS: No evidence of pancreatic mass nor dilatation of the pancreatic duct. SPLEEN: Spleen is not enlarged. No obvious intrasplenic lesions. Splenic and portal veins are patent. ADRENALS: There are no significant adrenal masses. KIDNEYS:Right kidney unremarkable. There is a benign exophytic cyst off the posterior cortex of the left kidney which measures 1.9 cm. Another benign cyst is seen in the anterior cortex measuring 1.5 cm. However, off the anteromedial cortex there is a smaller but solid nodule some internal enhancement measuring 1.3 x 1.3 cm. This is most probably neoplastic.. ABDOMINAL AORTA: Abdominal aorta is not enlarged. LYMPH NODES:There is no retroperitoneal nor paraaortic adenopathy. ABDOMINAL WALL: No evidence of significant anterior abdominal wall nor inguinal hernia. GI: There is no evidence of bowel obstruction, free air, nor abscess. PELVIS: GI: No evidence of appendicitis.No evidence of sigmoid diverticulitis. LYMPH NODES: There is no intrapelvic nor inguinal adenopathy. REPRODUCTIVE: Uterus and adnexal regions appear unremarkable. There is no free fluid URINARY BLADDER: Partially collapsed therefore difficult to evaluate but no calcified intraluminal calculi evident nor obvious masses. OSSEOUS: No fractures and no significant osseous lesions. L5-S1 disc space narrowing. No listhesis. IMPRESSION: 1. Main finding here is a solid 1.3 x 1.3 cm nodule in the anteromedial cortex of the left kidney, concerning for neoplasm. Two other separate findings in the same left kidney are benign cysts. There are no calculi nor hydronephrosis. The opposite-right kidney appears unremarkable. 2. Bladder is difficult to assess accurately as it is mostly collapsed. However, there are no obvious significant findings in the bladder. Report called by myself to ER provider 05/02/2025 at 10:25 a.m. RADIATION DOSE DELIVERED: 965.34mGy.cm Total DLP DATA REPOSITORY: All CT scans at this facility are submitted to the National Radiology Data Registry (NRDR) Dose Index Registry (DIR) with the [employer] (ACR). RADIATION OPTIMIZATION: All CT scans at this facility use at least one of these dose optimization techniques: automated exposure control; mA and/or kV adjustment per patient size (includes targeted exams where dose is matched to clinical indication); or iterative reconstruction.
[2025-05-02 09:35] LABS: Abs Immature Grans 0.05 10^3/uL (0.0-0.06); HCT 42.1 % (36.0-46.0); HGB 13.3 g/dL (11.2-15.7); Immature Grans % 0.4 %; MCH 20.9 pg (27.0-33.0); MCHC 31.6 % (32.0-36.0); MCV 66 fL (80-95); MPV 10.8 fL (8.0-11.0); Platelet Count 406 10^3/uL (130-400); RDW 16.9 % (11.7-14.6); RDW-SD 35.0 fL; WBC 12.84 10^3/uL (4.4-10.8)
[2025-05-02] MEDS: Omnipaque 350 MG/ML 100 ML BTL IJ (09:40)
[2025-05-02] MEDS: Normal Saline Flush 10 ML SYR IVP (09:40)
[2025-05-02] MEDS: Normal Saline - Diluent 50 ML VIAL IJ (09:40)
[2025-05-02 09:47] LABS: Glucose Negative (Negative)
[2025-05-02 09:51] LABS: Anisocytosis 1+; Microcytosis 3+; RBC 6.37 10^6/uL (3.93-5.22)
[2025-05-02 09:53] LABS: ALT 77 U/L (14-59); AST 76 U/L (15-37); Albumin 4.0 g/dL (3.4-5.0); Alkaline Phosphatase 113 U/L (46-116); Anion Gap 12.3 mmol/L (3-11); BUN 10 mg/dL (7-18); Bilirubin, Total 1.0 mg/dL (0.2-1.0); CO2 24.7 mmol/L (21.0-32.0); Calcium 9.3 mg/dL (8.5-10.1); Chloride 101 mmol/L (98-107); Estimated GFR 59.34 (mL/min/1.73m2); Glucose 259 mg/dL (74-106); Potassium 3.8 mmol/L (3.5-5.1); Sodium 138 mmol/L (136-145); Total Protein 8.7 g/dL (6.4-8.2)
[2025-05-02] MEDS: Normal Saline 1,000 ML 1000 ML IV (09:57)
[2025-05-02 09:58] LABS: RBC Negative HPF (0-2)
[2025-05-02 09:59] LABS: C & S Indicated? No
[2025-05-02 10:17] LABS: Lipase 68 U/L (<78)
[2025-05-02 10:47] LABS: Hemoglobin A1C 8.6 % (<5.7)
[2025-05-02 10:59] LABS: Lab Add On Test DONE
[2025-05-02 11:00] LABS: Lab Add On Test DONE
--- NOTE | 2025-05-02 11:10 | ED.GENADUL_ITS ---
Discharge Plan Disposition Patient Disposition: Home Discharge Details Clinical Impression: Kidney mass, Hypothyroidism, Diabetes mellitus Primary Care Provider: GREG MCKEON ED Provider: Aleshia Gordon Home Meds and New Rx's Prescriptions: Continued levothyroxine 175 mcg tablet 175 mcg PO .6 x a week Patient Comments: Pt reports she takes this every other day 05/02/25 Discharge Instructions Instructions: Hypothyroidism (underactive thyroid), Carb counting for adults with diabetes, Diabetes and diet Additional Instructions: You have a mass on your kidney, I have spoken with our urologist and they want to see you in the close outpatient setting, they will call you to schedule the appointment Please have your doctor review your glucose as it is very high Please take your thyroid medication daily and temporarily stop the vitamin B with iodine Please follow-up with PCP in 1 week for reassessment Return immediately with increased blood in your urine, worsening pain, or should any new concerns arise Part of the reason why you might be so tired is your thyroid level is very high as is your blood sugar, your A1c is 8.6 and your blood glucose is 259 Your TSH is 55 Referrals: d [Other] GREG MCKEON, INSURANCE CLAIMS SUPERVISOR [Primary Care Provider, Medicine] Aram Carlos MD [ [facility] STAFF PHYSICIAN, Urology] Discharge Data Discharge Date/Time-TO BE ENTERED AT DEPARTURE: 05/02/25 12:16 HPI General Date/Time Provider Initiated Documentation: 05/02/25 08:58 . HPI Narrative: This 55-year-old female presents with report of left flank pain intermittent discolored urine which she describes as dark brown and kidney stones noted when she strains her urine. She states this been occurring since July but she has not followed up with any provider regarding it. She comes in today secondary to the pain predominantly and intermittent nausea. She denies any tobacco use or history of alcoholism. She has no falls or injuries. She denies any chest pain or shortness of breath. Related Data Home Medications ?Medication ?Instructions ?Recorded ?Confirmed levothyroxine 175 mcg tablet 175 mcg PO .6 x a week 05/02/25 Allergies Allergy/AdvReac Type Severity Reaction Status Date / Time iodine Allergy Severe Skin Rash Unverified 05/02/25 08:57 oxycodone (Oxycodone) Allergy Severe Itching Unverified 05/02/25 08:57 Penicillins Allergy Severe Anaphylaxsi Unverified 05/02/25 08:57 s shellfish derived Allergy Severe Itching Unverified 05/02/25 08:57 morphine Allergy Intermediate Itching Unverified 05/02/25 08:57 tramadol AdvReac Intermediate Nausea Unverified 05/02/25 08:57 General Stated Complaint: FlankPain TRACE: 3 Exam Narrative Exam Narrative: 55-year-old female alert, oriented left flank pain appreciated on assessment no abdominal tenderness lungs clear to auscultation cardiac rate rhythm regular distal pulses intact all 4 extremities speaking in complete sentence Course Vital Signs Vital signs: Vital Signs Temperature 36.4 C L 05/02/25 08:54 Pulse 98 H 05/02/25 08:54 Respiratory Rate 16 05/02/25 08:54 Blood Pressure 137/83 05/02/25 08:54 Pulse Oximetry 98 05/02/25 08:54 Temperature 36.4 C L 05/02/25 08:56 Temperature Source Tympanic 05/02/25 08:56 Pulse 98 H 05/02/25 08:56 Respiratory Rate 16 05/02/25 08:56 Blood Pressure 137/83 05/02/25 08:56 Blood Pressure Position Sitting 05/02/25 08:56 Pulse Oximetry 98 05/02/25 08:56 Oxygen Delivery Method Room Air 05/02/25 08:56 Oxygen Flow Rate 0 05/02/25 08:56 Pain Level 8 05/02/25 08:56 Lab/Test Results Lab/Test Results: Laboratory Tests Range/Units 05/02/25 05/02/25 05/02/25 09:15 09:30 10:06 WBC (4.4-10.8) 10^3/uL 12.84 H RBC (3.93-5.22) 10^6/uL 6.37 H Hgb (11.2-15.7) g/dL 13.3 Hct (36.0-46.0) % 42.1 MCV (80-95) fL 66 L MCH (27.0-33.0) pg 20.9 L MCHC (32.0-36.0) % 31.6 L RDW (11.7-14.6) % 16.9 H Plt Count (130-400) 10^3/uL 406 H MPV (8.0-11.0) fL 10.8 Immature Gran % % 0.4 Neutrophils % % 76.7 Lymphocytes % % 17.0 Monocytes % % 3.8 Eosinophils % % 1.3 Basophils % % 0.8 Nucleated RBC % (0.0-0.3) % 0.0 Absolute Neutrophils (1.2-6.7) 10^3/uL 9.85 H Absolute Lymphocytes (1.2-3.4) 10^3/uL 2.18 Absolute Monocytes (0.1-0.8) 10^3/uL 0.49 Absolute Eosinophils (0.0-0.7) 10^3/uL 0.17 Absolute Basophils (0.0-0.2) 10^3/uL 0.10 RBC Morphology See Below Anisocytosis 1+ Microcytosis 3+ Sodium (136-145) mmol/L 138 Potassium (3.5-5.1) mmol/L 3.8 Chloride (98-107) mmol/L 101 Carbon Dioxide (21.0-32.0) mmol/L 24.7 Anion Gap (3-11) mmol/L 12.3 H BUN (7-18) mg/dL 10 Creatinine (0.55-1.02) mg/dL 1.1 H Est GFR (CKD-EPI 2020) (mL/min/1.73m2) 59.34 Glucose (74-106) mg/dL 259 H Hemoglobin A1c (<5.7) % 8.6 H Calcium (8.5-10.1) mg/dL 9.3 Total Bilirubin (0.2-1.0) mg/dL 1.0 AST (15-37) U/L 76 H ALT (14-59) U/L 77 H Alkaline Phosphatase (46-116) U/L 113 Total Protein (6.4-8.2) g/dL 8.7 H Albumin (3.4-5.0) g/dL 4.0 Lipase (<78) U/L 68 Urine Color (Yellow) Yellow Urine Clarity (Clear) Cloudy Urine pH (5-8) 6.0 Ur Specific [place] (1.005-1.025) 1.015 Urine Protein (Neg-Trace) mg/dL 100 H Urine Ketones (Negative) mg/dL Trace H Urine Blood (Negative) Negative Urine Nitrite (Negative) Negative Urine Bilirubin (Negative) Small H Urine Urobilinogen (Up to 0.2) mg/dL 0.2 Ur Leukocyte Esterase (Negative) Trace H Urine RBC (0-2) HPF Negative Urine WBC (0-5) HPF 3-5 Ur Epithelial Cells (Negative) HPF Few Urine Crystals (Negative) HPF Negative Urine Bacteria (Negative) HPF Few Urine Casts (Negative) LPF 0-2 Hyaline Urine Mucus (Negative) Negative Urine Other (Negative) Rare Renal Ur Culture Indicated? No Urine Glucose (Negative) mg/dL Negative Add-On Test Request DONE DONE Medical Decision Making Results: TSH 55 with free T4 of 0.55, glucose of 259 with A1c of 8.6 left renal mass 1.3 cm personally discussed this case with Dr. Blake, radiologist elevation in transaminases consistent with prior no elements of diabetic ketoacidosis clinically Assessment and plan: Patient is a complex 55-year-old female notes unfortunately noncompliant with medications. She tells me she only takes her levothyroxine every other day, she does ensure that she will increase her levothyroxine to daily as her thyroid is 55. Her glucose is elevated and as is her A1c these 2 endocrinological issues are likely contributing to her fatigue and chronic pain. She states that she would like to first work on her thyroid and refuses to take any diabetic medications including metformin secondary to side effect profile. She is aware that she does have a mass on her left kidney. I spoke with Dr. Carlos regarding this mass and he will see her closely and follow-up I did relay the urgency of need for follow-up and they will evaluate patient expediently and refer as necessary. Patient is aware of plan. She has transportation to her appointments should she need it. I also offered care management to establish with [facility] but she has community connections and resources. She does tell me she is homeless and is living in a camper without electricity or running water although she is on the list and does have section 8 housing. She does have some barriers to receiving health care but it sounds like for now she has some resources available. She is referred back to PCP for further management of her chronic endocrinological issues but does information will increase her levothyroxine to daily. Differential diagnosis, diabetic ketoacidosis, renal cell carcinoma, kidney stone, no evidence of kidney stone after reviewing the CT abdomen and pelvis results, no evidence of diabetic ketoacidosis as reviewed by diagnostic labs no significant ketonuria and bicarb within normal limits PFSH All Active Problems (Updated 05/02/25 @ 12:06 by ANDREAS Menezes) Diabetes mellitus (Chronic) Hypothyroidism (Chronic) Kidney mass (Acute) Insomnia (Acute) Paresthesia (Acute) Internal derangement of left knee (Acute 05/06/19) Chondromalacia patellae of left knee (Acute 05/06/19) History of laparoscopic cholecystectomy (Acute ~09/08/18) Biliary dyskinesia (Acute) Fibromyalgia (Acute) H/O colonoscopy (Chronic ~05/2018) H/O esophagogastroduodenoscopy (Chronic ~05/2018) H/O radioactive iodine thyroid ablation (Acute) Gastritis (Acute) Esophagitis determined by endoscopy (Acute) WALLACE (nonalcoholic steatohepatitis) (Acute) Hiatal hernia (Chronic) Gallstones (Acute) Lymphadenopathy, abdominal (Acute) Splenomegaly (Acute) Beta 0 thalassemia (Acute) Medical History Acute stress reaction Adjustment disorder Beta thalassemia trait Bipolar affective disorder Chronic pain Diabetes Effusion of left knee Generalized anxiety disorder Graves disease Hyperlipidemia Hypothyroidism Iron deficiency Obesity, morbid PTSD (post-traumatic stress disorder) Surgical History H/O tubal ligation Hx of dilation and curettage S/P laparoscopic procedure S/P radioactive iodine thyroid ablation S/P tonsillectomy Family History Mother WALLACE (nonalcoholic steatohepatitis) Hypothyroidism Hypertension Hyperlipidemia Diabetes Heart disease Father Hypothyroidism Pancreatic cancer Diabetes Hypertension Hyperlipidemia Stroke Heart disease Other CVD (cardiovascular disease) Colon cancer Lung cancer Social History Smoking/Tobacco Use Status: Never Smoking risk assessment performed?: Yes Alcohol Intake: current Alcohol Intake frequency: holidays/special occasions only Alcohol type: beer Drug use: Occasionally Substance use type: marijuana Household members: children and friend(s) Housing: apartment Number of Children: 1 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
[2025-05-02 11:22] LABS: TSH (W/Ref FT4) 55.95 uIU/mL (0.36-3.74)
[2025-05-02 11:38] VITALS: PULSE 73; PULSE 78; RESP 16; O2SAT 98
[2025-05-02 11:40] VITALS: PULSE 92; RESP 21
[2025-05-02 12:11] VITALS: BP 138/93; PULSE 79; RESP 14; O2SAT 97
== END 2025-05-02 12:16 | disposition home or self-care (01) ==
PROVIDERS: Emergency Provider Physician Assistant; PCP Nurse Practitioner Family
DX: E11.9 Type 2 diabetes mellitus without complications (principal); E03.9 Hypothyroidism, unspecified; N28.89 Other specified disorders of kidney and ureter
CPT/HCPCS: 99285; 99284; 36415; 80053; 83690; 96360; 74177; 81003; 81015; 83036; 84439; 84443; 85025; J3490

== ENCOUNTER 2025-07-24 09:41 | Outpatient (REF) | payer MEDICARE, MEDICAID, SELFPAY ==
[2025-07-24 17:24] LABS: HCT 37.7 % (36.0-46.0); HGB 11.5 g/dL (11.2-15.7); MCH 20.2 pg (27.0-33.0); MCHC 30.5 % (32.0-36.0); MPV 11.5 fL (8.0-11.0); Platelet Count 312 10^3/uL (130-400); RBC 5.70 10^6/uL (3.93-5.22); RDW 14.7 % (11.7-14.6); RDW-SD 33.8 fL; WBC 9.92 10^3/uL (4.4-10.8)
[2025-07-24 17:39] LABS: MCV 66 fL (80-95)
[2025-07-24 17:51] LABS: Iron 48 ug/dL (50-170)
[2025-07-24 17:55] LABS: TSH 0.34 uIU/mL (0.55-4.78)
[2025-07-24 17:56] LABS: Ferritin 307 ng/mL (7-271)
[2025-07-24 18:16] LABS: Hemoglobin A1C 7.1 % (<5.7)
[2025-07-25 16:54] LABS: T3,Free 3.1 pg/mL (2.8-5.3)
== END 2025-07-24 09:42 | disposition home or self-care (01) ==
LOC: NCHCN 09:41
PROVIDERS: PCP Nurse Practitioner Family; Visit Provider Nurse Practitioner Family
DX: E11.9 Type 2 diabetes mellitus without complications (principal); D56.3 Thalassemia minor; E03.9 Hypothyroidism, unspecified
CPT/HCPCS: 85027; 82728; 83036; 83540; 84439; 84443; 84481